=== PATIENT | female | born 1950 | race Caucasian/White ===

== ENCOUNTER 2021-01-25 16:45 | Emergency (ER) | payer MEDICARE, MEDICAID, SELFPAY ==
--- NOTE | ~2021-01-25 | US_ITS ---
EXAMINATION: US VENOUS ULTRASOUND WITH DOPPLER LOWER EXTREMITY, LEFT CLINICAL INFORMATION: Swelling and redness. COMPARISON: Doppler ultrasound exam left lower extremity 12/20/2016. TECHNIQUE: Ultrasound of the deep veins is performed from the hip to the calf with compression sonography and color and pulse Doppler assessment. Spectral analysis with color-flow imaging is performed. FINDINGS: As on the previous study, the mid to lower superficial femoral vein, the popliteal vein, and the calf veins are not visualized, possibly surgically removed or atrophic and not imaged with ultrasound. The remaining imaged upper left lower extremity venous segments remain widely patent. No change in the previously measured lymph node in the left groin with short axis diameter of 1.1 cm in length. 2.5 cm. US/US venous duplex LE LT IMPRESSION: No evidence of deep venous thrombosis involving the imaged veins of the left lower extremity. As on the prior study, the mid to lower superficial femoral vein, the popliteal vein, and the calf veins are not visualized, possibly surgically removed or atrophic and not imaged with ultrasound.
[2021-01-25 16:51] VITALS: BP 147/54; PULSE 88; RESP 16; TEMP 36.7; O2SAT 100; BMI 23.8
[2021-01-25 17:28] VITALS: BP 162/53; PULSE 92; RESP 18; TEMP 36.6; O2SAT 100
--- NOTE | 2021-01-25 17:38 | ED.GENADULT ---
HPI - General Adult General Chief complaint: Skin/Abscess/Foreign Body Stated complaint: left leg pain Time Seen by Provider: 01/25/21 17:26 Source: patient and family Limitations: no limitations History of Present Illness HPI narrative: This is a 70-year-old female with history of hypertension, diabetes, chronic venous stasis dermatitis to both legs, worse on the left, who has had increased erythema and swelling to her left leg for several weeks. The patient has been on a few courses of antibiotics already and was seen in clinic today, was noted to have increased swelling to the left side in her left calf, and was sent to the ED for rule out of DVT. Patient denies any chest pain shortness of breath. She denies any fever. She was prescribed some topical steroids and other medicines today in clinic. Related Data Home Medications Medication Instructions Recorded Confirmed alendronate 70 mg tablet 70 mg PO QWEEK 01/26/20 01/25/21 hydroxyzine pamoate 25 mg capsule 25 mg PO TID 01/26/20 01/25/21 Previous Rx's Medication Instructions Recorded glipizide 5 mg tablet, extended 5 mg PO DAILY #28 tab 01/15/20 release 24 hr lisinopril 2.5 mg tablet 2.5 mg PO DAILY #28 tab 01/15/20 metformin 1,000 mg tablet 1,000 mg PO BID #56 tab 01/15/20 mirabegron 50 mg tablet,extended 50 mg PO DAILY #28 tab 01/15/20 release 24 hr (Myrbetriq) solifenacin 10 mg tablet 10 mg PO DAILY #28 tab 01/15/20 atorvastatin 40 mg tablet 40 mg PO DAILY #28 tab 01/20/20 gemfibrozil 600 mg tablet 600 mg PO BID #56 tab 01/20/20 miscellaneous medical supply 1 ea MISCELLANEOUS .daily as 03/25/20 instructed #1 ea calcium carbonate 600 mg (1,500 2 tab PO BID #112 tab 12/06/20 mg)-vitamin D3 400 unit tablet ferrous sulfate 325 mg (65 mg 325 mg PO DAILY #28 tab 12/06/20 iron) tablet omega 3-dha 60 mg-epa 90 mg-fish 1 cap PO QAM #28 cap 12/06/20 oil 500 mg capsule, delayed release (Fish Oil) cephalexin 500 mg tablet 500 mg PO Q12H 10 Days #20 tab 01/25/21 triamcinolone acetonide 0.1 % 1 appl TOPICAL BID PRN 10 Days #80 01/25/21 topical cream g Allergies Allergy/AdvReac Type Severity Reaction Status Date / Time Sulfa (Sulfonamide Allergy Unknown rash Verified 01/25/21 15:28 Antibiotics) Review of Systems Constitutional: Constitutional: Denies fever(s) Cardiovascular: Cardiovascular: Reports no additional cardiovascular complaints Respiratory: Respiratory: Reports no additional respiratory complaints Gastrointestinal: Gastrointestinal: Reports no additional gastrointestinal complaints Musculoskeletal: Comments: Left leg swelling Integumentary/Breasts: Comments: Erythema to left leg and foot, as well to right foot; weeping of areas on left leg Neurologic: Denies Sensory deficit (Neuro) [facility] Past Medical History Medical History Anemia Anxiety Benign essential hypertension Bilateral leg edema Diabetes mellitus Generalized osteoarthrosis Osteoporosis Overweight with body mass index (BMI) 25.0-29.9 Primary osteoarthritis of left knee Pure hypercholesterolemia Urinary incontinence Venous stasis dermatitis of both lower extremities Surgical History History of hip surgery Family History Family History Father Heart disease CVD (cardiovascular disease) Mother Breast cancer Diabetes Social History Social History Housing: Assisted Living Facility Alcohol intake: never Patient Tobacco Use Status: Never used Tobacco e-Cigarette/Vaping Use: Never Used Second Hand Smoke Exposure: Yes Advance Directives: No Advance Directives Information Provided: Yes service: No Current occupational status: retired and disabled Cognitive needs: No Hearing needs: No Vision needs: Yes (glasses) Physical Exam Vital Signs: Vital Signs: Last Vital Signs Temp 98 F 01/25/21 17:28 Pulse 92 01/25/21 17:28 Resp 18 01/25/21 17:28 BP 162/53 H 01/25/21 17:28 Pulse Ox 100 01/25/21 17:28 Body Mass Index 23.8 Const: General: cooperative, no acute distress and alert Orientation/consciousness: patient oriented x3 HENMT: Head: Yes normal to inspection Eyes: General: appearance normal, both eyes and all related structures Eyelids: Yes eyelids normal Conjunctivae: conjunctivae normal Pupils: Equal, round and reactive pupils present Neck: Neck: Yes normal visual inspection and Yes supple Chest: Chest palpation & inspection: normal inspection of the chest Resp: Effort & Inspection: normal respiratory effort Auscultation: clear to auscultation bilaterally Cardio: Rate: regular rate Rhythm: regular rhythm Heart sounds: S1 normal heart sound present, S2 normal heart sound present, no gallops, no murmurs and no rubs GI: Palpation (GI): Soft to palpation, nontender and Other GI palpation findings present (Non-distended) Auscultation: normal bowel sounds Skin: Other: Venous stasis changes/edema to both feet, on the left extending up to the left anterior leg with a few areas of weeping. There is left calf swelling and firmness compared to the right calf. Normal dorsalis pedis pulse on the left foot. Neuro: General: patient oriented x3, no focal motor deficits and CN's II-XI intact bilaterally Cranial nerves: Yes Equal, round and reactive pupils present Cognition (Neuro): normal cognition Motor exam (neuro): 5/5 motor strength present throughout Sensory Exam: No Sensory deficit (Neuro) Extrem: General: Yes normal to inspection and Yes no pedal edema Psych: Appearance: grossly normal Affect: normal affect Medical Decision Making MDM Narrative Medical decision making narrative: Patient with chronic venous stasis changes, worse on the left with more marked swelling of her left calf. Patient does have known osteoarthritis on the left, which may be contributing somewhat to her left-sided swelling. Ultrasound of the left leg was negative for DVT. Patient has been on 2 courses of antibiotics for her dermatitis, which is likely not infectious but due to venous stasis. Patient was seen today and prescribed topical medications by her primary care physician. The patient is safe for outpatient follow-up. Imaging Data Venous US: Radiologist's impression: IMPRESSION: No evidence of deep venous thrombosis involving the imaged veins of the left lower extremity. As on the prior study, the mid to lower superficial femoral vein, the popliteal vein, and the calf veins are not visualized, possibly surgically removed or atrophic and not imaged with ultrasound. Discharge Plan Discharge Clinical Impression: Venous stasis dermatitis of both lower extremities Patient Disposition: Home, Self-Care Instructions: Venous Insufficiency (DC) Additional Instructions: Continue medicines as prescribed by your primary care physician for your venous stasis dermatitis. There is no evidence of DVT on ultrasound today. Try to keep your leg elevated above heart level as often as possible. Return for any new or worsened symptoms. Prescriptions: No Action glipizide 5 mg tablet extended release 24hr 5 mg PO DAILY Qty: 28 RF: 10 mirabegron [Myrbetriq] 50 mg tablet extended release 24 hr 50 mg PO DAILY Qty: 28 RF: 10 lisinopril 2.5 mg tablet 2.5 mg PO DAILY Qty: 28 RF: 10 solifenacin 10 mg tablet 10 mg PO DAILY Qty: 28 RF: 10 metformin 1,000 mg tablet 1,000 mg PO BID Qty: 56 RF: 10 gemfibrozil 600 mg tablet 600 mg PO BID Qty: 56 RF: 10 atorvastatin 40 mg tablet 40 mg PO DAILY Qty: 28 RF: 10 miscellaneous medical supply Mis 1 ea miscellaneous .daily as instructed Qty: 1 RF: 0 Fish Oil 60-90-500 mg capsule,delayed release(DR/EC) 1 cap PO QAM Qty: 28 RF: 10 ferrous sulfate 325 mg (65 mg iron) tablet 325 mg PO DAILY Qty: 28 RF: 10 calcium carbonate-vitamin D3 600 mg(1,500mg) -400 unit tablet 2 tab PO BID Qty: 112 RF: 10 alendronate 70 mg tablet 70 mg PO QWEEK RF: 0 hydroxyzine pamoate 25 mg capsule 25 mg PO TID RF: 0 triamcinolone acetonide 0.1 % cream 1 appl topical BID PRN (Reason: rash) 10 Days Qty: 80 RF: 0 cephalexin 500 mg tablet 500 mg PO Q12H 10 Days Qty: 20 RF: 0 Interventions: ED Discharge Assessment Last Done: 01/25/21 18:55 Discharge Date/Time: 01/25/21 18:56
== END 2021-01-25 18:56 | disposition home or self-care (01) ==
PROVIDERS: Emergency Provider Emergency Medicine; PCP Nurse Practitioner Family
DX: I87.2 Venous insufficiency (chronic) (peripheral) (principal); M79.605 Pain in left leg; I10 Essential (primary) hypertension; E11.9 Type 2 diabetes mellitus without complications; Z79.899 Other long term (current) drug therapy
CPT/HCPCS: 93971; 99283; 99284

== ENCOUNTER 2022-01-18 14:11 | Outpatient (REF) | payer MEDICARE, MEDICAID, SELFPAY ==
--- NOTE | ~2022-01-18 | MM_ITS ---
EXAMINATION: MM SCREENING DIGITAL BREAST TOMOSYNTHESIS, BILATERAL CLINICAL INFORMATION: Screening. Asymptomatic. COMPARISON: Mammography: April 05, 2016 and studies dating back to January 26, 2009 TECHNIQUE: Digital breast tomosynthesis is performed in both the craniocaudal and mediolateral oblique views along with computer-aided detection (CAD). Synthesized 2D images are generated from the tomosynthesis. FINDINGS: There are scattered areas of fibroglandular density (ACR BI-RADS breast composition Category b). There are no significant masses, abnormal calcifications, or other abnormalities. Some vascular calcifications are seen about the upper outer aspect of the left breast. MM/MM tomosynthesis screening BI IMPRESSION: No significant changes from prior exam. ASSESSMENT: BI-RADS 1: Negative RECOMMENDATION: Routine annual mammography screening. This patient's information was entered into a reminder system with a target due date for their next mammogram.
--- NOTE | ~2022-01-18 | MM_ITS ---
EXAMINATION: BONE DENSITOMETRY CLINICAL INDICATION: Osteoporosis. COMPARISON: Previous BD dated 04/05/2016 and baseline BD dated 08/19/2012. TECHNIQUE: Using a [employer] DXA System (software version: 13.1) manufactured by [employer], dual-energy x-ray absorptiometry was performed of the lumbar spine and right hip. The images are of good technical quality. Summary results are attached. FINDINGS: AP SPINE L1-L4: Degenerative sclerosis causes artifactually increased bone mineral density. Current: BMD 1.535 g/cm2, Z-score 5.3, T-score 3.0, normal, 12.6% increase from previous, 30.9% increase from baseline (<5% change is not significant). Prior: BMD 1.363 g/cm2. Baseline: BMD 1.173 g/cm2. RIGHT FEMUR, NECK: Current: BMD 0.536 g/cm2, Z-score -1.4, T-score -3.6, osteoporosis. Prior: BMD 0.679 g/cm2. Baseline: BMD 0.695 g/cm2. RIGHT FEMUR, TOTAL: Current: BMD 0.663 g/cm2, Z-score -0.7, T-score -2.7, osteoporosis, 14.8% decrease from previous, 12.4% decrease from baseline (<5% change is not significant). Prior: BMD 0.778 g/cm2. Baseline: BMD 0.757 g/cm2. IDENTIFIED RISK FACTORS: Menopause, height loss, history of fracture (adult), low body weight, osteoporosis, rheumatoid arthritis. HISTORY OF FRACTURE: Hip. MEDICATIONS: Calcium, bisphosphonate. MM/XR DEXA axial skeleton IMPRESSION: 1. DIAGNOSIS: Severe osteoporosis based on the lowest T-score value of -3.6 in the femoral neck and history of fracture of the hip applying World Health Organization criteria. 2. 10-YEAR FRACTURE RISK PREDICTION, FRAX: According to the guidelines, FRAX calculation should only be performed on patients in the osteopenia bone density category. Therefore, FRAX was not performed on this patient. 3. Treatment Recommendations: NOF guidelines recommend consideration for treatment in postmenopausal women and men age 50 and older presenting with the following: -A hip or vertebral (clinical or morphometric) fracture. -T-score less than or equal to -2.5 at the femoral neck or spine after appropriate evaluation to exclude secondary causes. -Low bone mass at the hip or spine and a 10-year fracture probability by FRAX of greater than or equal to 3% for hip fracture or greater than or equal to 20% for major osteoporotic fracture based on the [place] adapted WHO algorithm. 4. Other Recommendations: All treatment decisions require clinical judgment and consideration of individual patient factors, including patient preferences, comorbidities, previous drug use, risk factors not captured in the FRAX model (e.g. frailty, falls, vitamin D deficiency, increased bone turnover, interval significant decline in bone density) and possible under or overestimation of fracture risk by FRAX. Additional medical evaluation for secondary cause of low bone mineral density may be appropriate. FUTURE SCAN RECOMMENDATION: People with diagnosed cases of osteoporosis or at high risk for fracture should have regular bone mineral density tests. For patients eligible for Medicare, routine testing is allowed once every 2 years. The testing frequency can be increased to one year for patients who have rapidly progressing disease, those who are receiving or discontinuing medical therapy to restore bone mass, or have additional risk factors.
== END 2022-01-18 14:12 | disposition home or self-care (01) ==
LOC: HO.MAMMO 14:11
PROVIDERS: Visit Provider Internal Medicine
DX: Z12.31 Encounter for screening mammogram for malignant neoplasm of breast (principal); M81.0 Age-related osteoporosis without current pathological fracture
CPT/HCPCS: 77063; 77067; 77080

== ENCOUNTER → 2022-06-29 15:59 | Outpatient (BNVA) | payer MEDICARE, MEDICAID, SELFPAY | PROVIDERS: PCP Internal Medicine; Visit Provider Internal Medicine Endocrinology, Diabetes & Metabolism | DX: M81.0 Age-related osteoporosis without current pathological fracture (principal) | CPT/HCPCS: 99202 ==

== ENCOUNTER 2022-09-25 16:20 | Outpatient (AMB) | payer MEDICARE, MEDICAID, SELFPAY ==
--- NOTE | 2022-09-25 16:21 | MHC.OFFVIS ---
Intake Vital Signs 09/25/22 16:23 Height 4 ft 4.95 in Weight 114 lb 3.191 oz BMI 28.6 BP 144/56 H Blood Pressure Location Lt brachial Position Sitting Pulse 90 Pulse Source Pulse Oximeter Intake Visit Reasons: Osteoporosis Intake Note: Patient present for Osteoporosis follow up visit. Environmental Science Technician Required: No Accompanied by: Sister Allergies Sulfa (Sulfonamide Antibiotics) Allergy (Unknown, Verified 09/25/22 16:25) rash HPI HPI Comments History of Present Illness Details 72 YO F with is seen in consultation at the request of PCP for Osteoporosis. First diagnosed in several yrs . Received treatment in the past with alendronate , several yrs . Tolerated treatment well without complication. No history of pathologic fracture 12 yrs ago fx hip with fall in bathroom but no ONJ. Has several servings of dietary calcium per day meals are prepared . Takes Calcium supplement 1200 mg daily in divided doses. Takes 800 IU of Vitamin D daily. Denies ever using PPI, anticoagulant, antiepileptic or glucocorticoid medication. 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 Adentulous . No planned upcoming dental work or extractions. DXA dated 01/18/22:[facility] [address] [place] [address] Mammography Report Signed Patient: Ene Zapien MR#: [id number] : 1950 Acct:[id number] Age/Sex: 71 / F ADM Date: 01/18/22 Loc: HO.MAMMO Attending Dr: Riccardo Bang MD Ordering Physician: Riccardo Bang MD Results: Date of Service: 01/18/22 Follow Up: Procedure(s): XR DEXA axial skeleton Accession Number(s): [id number] cc: Riccardo Bang MD~ EXAMINATION: BONE DENSITOMETRY CLINICAL INDICATION: Osteoporosis. COMPARISON: Previous BD dated 04/05/2016 and baseline BD dated 08/19/2012. TECHNIQUE: Using a [employer] DXA System (software version: 13.1) manufactured by [employer], dual-energy x-ray absorptiometry was performed of the lumbar spine and right hip. The images are of good technical quality. Summary results are attached. FINDINGS: AP SPINE L1-L4: Degenerative sclerosis causes artifactually increased bone mineral density. Current: BMD 1.535 g/cm2, Z-score 5.3, T-score 3.0, normal, 12.6% increase from previous, 30.9% increase from baseline (<5% change is not significant). Prior: BMD 1.363 g/cm2. Baseline: BMD 1.173 g/cm2. RIGHT FEMUR, NECK: Current: BMD 0.536 g/cm2, Z-score -1.4, T-score -3.6, osteoporosis. Prior: BMD 0.679 g/cm2. Baseline: BMD 0.695 g/cm2. RIGHT FEMUR, TOTAL: Current: BMD 0.663 g/cm2, Z-score -0.7, T-score -2.7, osteoporosis, 14.8% decrease from previous, 12.4% decrease from baseline (<5% change is not significant). Prior: BMD 0.778 g/cm2. Baseline: BMD 0.757 g/cm2. IDENTIFIED RISK FACTORS: Menopause, height loss, history of fracture (adult), low body weight, osteoporosis, rheumatoid arthritis. HISTORY OF FRACTURE: Hip. MEDICATIONS: Calcium, bisphosphonate. MM/XR DEXA axial skeleton IMPRESSION: 1. DIAGNOSIS: Severe osteoporosis based on the lowest T-score value of -3.6 in the femoral neck and history of frac Labs: [facility] Medical History Anemia Anxiety Benign essential hypertension Bilateral leg edema Diabetes mellitus Generalized osteoarthrosis Osteoporosis Overweight with body mass index (BMI) 25.0-29.9 Primary osteoarthritis of left knee Pure hypercholesterolemia Urinary incontinence Venous stasis dermatitis of both lower extremities Surgical History History of hip surgery Family History Father Heart disease CVD (cardiovascular disease) Mother Breast cancer Diabetes Social History Housing: Assisted Living Facility Alcohol intake: never Patient Tobacco Use Status: Never used Tobacco e-Cigarette/Vaping Use: Never Used Second Hand Smoke Exposure: Yes service: No Current occupational status: retired and disabled Cognitive needs: No Hearing needs: No Vision needs: Yes (glasses) Physical Exam Vital Signs: Last Vital Signs Pulse 90 09/25/22 16:23 BP 144/56 H 09/25/22 16:23 BMI result Body Mass Index 28.6 Assessment & Plan Assessment & Plan (1) Osteoporosis: Code(s): M81.0 - Age-related osteoporosis without current pathological fracture Qualifiers: Osteoporosis type: age-related Presence of current pathological fracture: without current pathological fracture Qualified Code(s): M81.0 - Age-related osteoporosis without current pathological fracture Plan: This is a 72-year-old white female with a history of severe osteoporosis with secondary workup negative except 24 hour urine collection was not currently being treated alendronate. Urine NTX is officially suppressed Plan is to complete secondary workup by checking 24 hour urine for calcium and creatinine, . Will ensure 1200 mg of calcium and 2000-units of vitamin-D 3. . One secondary workup is complete, could consider switching patient from alendronate to anabolic therapy should she has Brianna Valencia or [place] considering patient has a very high risk for subsequent fracture based on urine NTX Coding Level of Care Code Est Pt Level 3 (07465) Diagnoses Osteoporosis M81.0 Osteoporosis type: age-related Presence of current pathological fracture: without current pathological fracture
[2022-09-25 16:23] VITALS: BP 144/56; PULSE 90; BMI 28.6
== END 2022-09-25 16:50 | disposition home or self-care (01) ==
PROVIDERS: PCP Internal Medicine; Visit Provider Internal Medicine Endocrinology, Diabetes & Metabolism
DX: M81.0 Age-related osteoporosis without current pathological fracture (principal)
CPT/HCPCS: 99213

== ENCOUNTER → 2022-09-25 16:20 | Outpatient (BNVA) | payer MEDICARE, MEDICAID, SELFPAY | PROVIDERS: Visit Provider Internal Medicine Endocrinology, Diabetes & Metabolism | DX: M81.0 Age-related osteoporosis without current pathological fracture (principal); M06.9 Rheumatoid arthritis, unspecified; Z78.0 Asymptomatic menopausal state; Z79.83 Long term (current) use of bisphosphonates | CPT/HCPCS: 99212 ==

== ENCOUNTER 2022-11-07 08:14 | Outpatient (REF) | payer MEDICARE, MEDICAID, SELFPAY ==
[2022-11-07 09:07] LABS: Creatinine, mg/dL 20.11
[2022-11-07 09:19] LABS: Creatinine, 24Hr Urine 0.1 G/Day (1.0-2.0); Total Volume 24 Hour Urine 725 mL
[2022-11-09 18:14] LABS: Calcium, 24 Hr Urine 29 mg/24 h; Calcium/Creatinine Ratio 190 mg/g creat (30-275); Creatinine 24Hr Urine 0.15 g/24 h (0.50-2.15)
== END 2022-11-07 08:15 | disposition home or self-care (01) ==
LOC: HO.LNP 08:14
PROVIDERS: Visit Provider Internal Medicine Endocrinology, Diabetes & Metabolism
DX: M81.0 Age-related osteoporosis without current pathological fracture (principal)
CPT/HCPCS: 82340; 82570

== ENCOUNTER 2022-12-20 12:19 | Outpatient (AMB) | payer MEDICARE, MEDICAID, SELFPAY ==
[2022-12-20 12:20] VITALS: BP 126/90; PULSE 106; O2SAT 99; BMI 28.5
--- NOTE | 2022-12-20 12:20 | MHC.PC.OV ---
Vital Signs 12/20/22 12:20 Height 4 ft 4.95 in Weight 113 lb 8.609 oz BMI 28.5 BP 126/90 H Blood Pressure Location Lt brachial Position Sitting Pulse 106 H Pulse Source Pulse Oximeter Pulse Oximetry (%) 99 Oxygen Delivery Method Room Air Intake Visit Reasons: Rash on face Drug Abuse Technician Required: No Accompanied by: Self / Same As Patient Allergies Sulfa (Sulfonamide Antibiotics) Allergy (Unknown, Verified 12/20/22 22:13) rash Medication List - Last Reconciled 12/20/22 by Riccardo Bang MD atorvastatin 40 mg PO DAILY blood sugar diagnostic (FreeStyle Lite Strips) As directed once a day blood-glucose meter (FreeStyle Lite Meter kit) As directed calcium carbonate-vitamin D3 600 mg-10 mcg (400 unit) 2 tabs PO BID [DIABETIC SHOES As directed] diphenhydramine HCl 25 mg PO TID PRN doxycycline monohydrate 100 mg PO BID 10 days ferrous sulfate 325 mg PO DAILY gemfibrozil 600 mg PO BID hydroxyzine pamoate 25 mg PO TID Jardiance (empagliflozin) 25 mg PO DAILY 30 days NS lancets (FreeStyle Lancets) As directed once a day lisinopril 2.5 mg PO DAILY metformin 500 mg PO BID mirabegron ER (Myrbetriq) 50 mg PO DAILY miscellaneous medical supply 1 ea miscellaneous .daily as instructed nitrofurantoin monohyd/m-cryst 100 mg 100 mg PO Q12H 7 days omega 2-nnj-gwp-fish oil 60-90-500 mg (Fish Oil) 1 cap PO QAM prednisone 20 mg PO DAILY 3 days romosozumab-aqqg (Evenity) 210 mg (2.34 mL) subcut .monthly solifenacin 10 mg PO DAILY triamcinolone acetonide 0.1% 1 appl topical BID PRN 10 days Tobacco use date assessed: 12/20/22 Fall risk assessment: 1 Fall in past year Last assessed Fall Risk: 12/20/22 Dental Screening Dental Screen Date: 12/20/22 Did you have a dental visit in the last 12 months?: No Did you have a dental problem in the last 6 months where you did not have access to dental care?: No Was dental information given to patient?: No HPI Rash on face HPI Details Patient comes in today for further evaluation of a worsening red and scaling rash all over her face that she states has been present for a few days now Recalls that her rash started after she ingested some nuts that her sister brought to her this past weekend States that she stop eating the nuts immediately but the rash on her face kept getting worse Patient currently lives in a rest home and has not been given any medication for her facial rash as they do not know what to give her Patient denies taking any new medications recently and states that she has not used any new soap or lotion on her face lately States that her face feels very sore, itchy and swollen She denies any trouble swallowing or difficulty breathing Denies any fever or sore throat; denies any headaches or dizziness Denies any chest pains, no SOB No nausea/vomiting, no abdominal pain No change in bowel habits noted [facility] Medical History Overweight with body mass index (BMI) 25.0-29.9 Anxiety Osteoporosis Venous stasis dermatitis of both lower extremities Bilateral leg edema Primary osteoarthritis of left knee Generalized osteoarthrosis Anemia Urinary incontinence Pure hypercholesterolemia Benign essential hypertension Diabetes mellitus Surgical History History of hip surgery Family History Father Heart disease CVD (cardiovascular disease) Mother Breast cancer Diabetes Social History Housing: Assisted Living Facility Alcohol intake: never Patient Tobacco Use Status: Never used Tobacco e-Cigarette/Vaping Use: Never Used Second Hand Smoke Exposure: Yes service: No Current occupational status: retired and disabled Cognitive needs: No Hearing needs: No Vision needs: Yes (glasses) Questionnaire PHQ-9 Over the last 2 weeks, how often have you been bothered by any of the following problems? 1. Little interest or pleasure in doing things: not at all 2. Feeling down, depressed, or hopeless: not at all 3. Trouble falling or staying asleep, or sleeping too much: not at all 4. Feeling tired or having little energy: not at all 5. Poor appetite or overeating: not at all 6. Feeling bad about yourself - or that you are a failure or have let yourself or your family down: not at all 7. Trouble concentrating on things, such as reading the newspaper or watching television: not at all 8. Moving or speaking so slowly that other people could have noticed. Or the opposite - being so fidgety or restless that you have been moving around a lot more than usual: not at all 9. Thoughts that you would be better off or of hurting yourself in some way: not at all Total score: 0 Depression Screening Interpretation: Negative Depression Screening Done: Yes 89751 - PHQ-9 Billing: Yes Source: Developed by Drs. Ken Pena, Mulu Davey, Gopi Powell and colleagues, with an educational mikey from [employer]. Thrive Questionnaire Date Thrive assessed: 12/20/22 I am a: Patient What is your living situation today?: I have a steady place to live Within the past 12 months, did the food you bought not last and you didn't have the money to get more?: Never true Within the past 12 months, did you worry whether your food would run out before you got money to buy more?: Never true Do you have trouble paying for medicines?: No Do you have trouble getting transportation to medical appointments?: No Do you have trouble paying your heating and electricity bill?: No Do you have trouble taking care of your child, family member or friend?: No Do you have trouble with day-to-day activities such as bathing, preparing meals, shopping, managing finances, etc.?: No Are you currently unemployed and looking for a job?: No Are you interested in more education?: No Please select the resources that you would like help with: None Currently or been in a relationship where the following occur: no concerns reported AUDIT C Alcohol Use Questionnaire (AUDIT-C) 1. How often do you have a drink containing alcohol?: Never 3. How often do you have six or more drinks on one occasion?: Never Total Score: 0 Score Reviewed/Action Taken: Yes FLORES-7 AMB Questionnaire FLORES-7 Date FLORES - 7 assessed: 12/20/22 Feeling nervous, anxious, or on edge: 0 = Not at all Not being able to stop or control worryin = Not at all Worrying too much about different things: 0 = Not at all Trouble relaxin = Not at all Being so restless that it is hard to sit still: 0 = Not at all Becoming easily annoyed or irritable: 0 = Not at all Feeling afraid as if something awful might happen: 0 = Not at all Total FLORES-7 score (0-4 normal; 5-9 mild; 10-14 moderate; 15-21 severe): 0 Source: Developed by Drs. Ken Pena, Mulu Davey, Gopi Powell and colleagues, with an educational mikey from [employer]. Review of Systems Const Reports fatigue, Denies fever(s) and Denies headache(s) ENT Denies dysphagia, Denies dizziness, Denies otalgia, Denies headache(s), Denies odynophagia, Denies sore throat and Denies throat swelling Card Denies chest pain, Denies palpitations and Denies dyspnea Resp Denies cough and Denies dyspnea GI Denies abdominal pain, Denies constipation, Denies dysphagia, Denies heartburn, Denies diarrhea, Denies nausea, Denies odynophagia and Denies vomiting Denies hematuria, Denies difficulty voiding, Denies nocturia and Denies dysuria Skin/Breast Details: (+) severe red and scaling rash all over the face, forehead and cheeks; face appears slightly swollen; rash does not extend down into the neck area Neuro Denies dizziness and Denies headache(s) Endo Reports fatigue and Denies palpitations Aller/Immun Denies throat swelling Physical exam (Primary Care) Vital Signs: Last Vital Signs Pulse 106 H 12/20/22 12:20 BP 126/90 H 12/20/22 12:20 Pulse Ox 99 12/20/22 12:20 Oxygen Delivery Method Room Air 12/20/22 12:20 BMI result Body Mass Index 28.5 Tobacco/Smoking Status: Tobacco use Status Tobacco use date assessed 12/20/22 12/20/22 12:26 Patient Tobacco Use Status Never used Tobacco 12/20/22 12:26 e-Cigarette/Vaping Use Never Used 12/20/22 12:26 PHQ-9: PHQ-9 Score PHQ-9: Total score 0 12/20/22 12:48 Depression Screening Interpretation: Negative Thrive Assessment: Date of Thrive Assessment Date Thrive assessed 12/20/22 12/20/22 12:26 Currently or been in a relationship where the following occur: no concerns reported Const General: no acute distress and alert HENMT Other: (+) extensive erythematous, slightly edematous and scaling rash all over the face, including over the forehead and both cheeks; no oral or mucosal involvement and the rash does not extend down into the neck area Ears: TM's normal bilaterally and EAC's normal Throat: Yes posterior oropharynx normal and Yes tonsils normal (no TP congestion) Neck Neck: Yes no lymphadenopathy and Yes supple Resp Auscultation: clear to auscultation bilaterally, no rales and no wheezes Cardio Rate: regular rate Rhythm: regular rhythm Heart sounds: no murmurs GI Palpation (GI): Soft to palpation and nontender Auscultation: normal bowel sounds Extrem General: No clubbing, No cyanosis and Yes edema (trace bipedal edema) Assessment and Plan Assessment & Plan (1) Diffuse cellulitis of face: Code(s): L03.211 - Cellulitis of face (2) Dermatitis due to allergic reaction to food: Code(s): L27.2 - Dermatitis due to ingested food Plan Patient advised that her worsening facial rash likely started out as an allergic reaction, most likely to the nuts that her sister brought her, but has since progressed to cellulitis with edema, worsening erythema and extensive scaling all over her face Will start her on oral Prednisone 20 mg daily for 3 days as well as on Diphenhydramine 25 mg TID until her facial rash clears up completely Due to the presence of cellulitis currently, will start her on oral Doxycycline 100 mg BID x 10 days Have advised her to avoid eating any nuts from now on as there is a strong likelihood of cross-reactivity in nut allergies Follow-up as scheduled in a couple of weeks Medications: New prednisone 20 mg PO DAILY 3 days 3 tabs 0RF doxycycline monohydrate 100 mg PO BID 10 days 20 caps 0RF diphenhydramine HCl Take 3 times a day UNTIL rash on face clears up completely 25 mg PO TID PRN 90 tabs 1RF rash Coding Level of Care Code Est Pt Level 3 (01689) Diagnoses Diffuse cellulitis of face L03.211 Dermatitis due to allergic reaction to food L27.2
== END 2022-12-20 12:58 | disposition home or self-care (01) ==
LOC: HO.HMGH 12:19
PROVIDERS: PCP Internal Medicine; Visit Provider Internal Medicine
DX: L03.211 Cellulitis of face (principal); L27.2 Dermatitis due to ingested food
CPT/HCPCS: 99213

== ENCOUNTER 2023-01-02 16:42 | Outpatient (AMB) | payer MEDICARE, MEDICAID, SELFPAY ==
[2023-01-02 16:51] VITALS: BP 142/80; PULSE 102; O2SAT 96; BMI 28.4
--- NOTE | 2023-01-02 16:51 | MHC.PC.OV ---
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 Setter Required: No Accompanied by: Self / Same As Patient Allergies Sulfa (Sulfonamide Antibiotics) Allergy (Unknown, Verified 01/04/23 09:10) rash Medication List - Last Reconciled 01/04/23 by Riccardo Bang MD alendronate 70 mg PO QWEEK atorvastatin 40 mg PO DAILY blood sugar diagnostic (FreeStyle Lite Strips) As directed once a day blood-glucose meter (FreeStyle Lite Meter kit) As directed calcium carbonate-vitamin D3 600 mg-10 mcg (400 unit) 2 tabs PO BID [DIABETIC SHOES As directed] diphenhydramine HCl 25 mg PO TID PRN doxycycline monohydrate 100 mg PO BID 10 days ferrous sulfate 325 mg PO DAILY gemfibrozil 600 mg PO BID hydroxyzine pamoate 25 mg PO TID Jardiance (empagliflozin) 25 mg PO DAILY 30 days NS lancets (FreeStyle Lancets) As directed once a day lisinopril 2.5 mg PO DAILY metformin 500 mg PO BID mirabegron ER (Myrbetriq) 50 mg PO DAILY miscellaneous medical supply 1 ea miscellaneous .daily as instructed nitrofurantoin monohyd/m-cryst 100 mg 100 mg PO Q12H 7 days omega 8-mbm-fso-fish oil 60-90-500 mg (Fish Oil) 1 cap PO QAM prednisone 20 mg PO DAILY 3 days romosozumab-aqqg (Evenity) 210 mg (2.34 mL) subcut .monthly solifenacin 10 mg PO DAILY triamcinolone acetonide 0.1% 1 appl topical BID PRN 10 days Tobacco use date assessed: 01/02/23 Fall risk assessment: No Falls in past year Last assessed Fall Risk: 01/02/23 Dental Screening Dental Screen Date: 01/02/23 Did you have a dental visit in the last 12 months?: No Did you have a dental problem in the last 6 months where you did not have access to dental care?: No Was dental information given to patient?: No HPI 4 month HPI Details Patient comes in today for her follow up visit States that she feels okay Her facial cellulitis appears improved significantly from a couple of weeks ago although she still has significant erythema on her face; she no longer has the swelling and scaling from a couple of weeks ago and her face is no longer warm to touch States that she asked the staff at the rest home a few days ago about taking her for her blood test for today's visit but was reportedly told that we did not give them any order for labs even though I specifically printed out her orders and handed it to the staff who was with her here at her previous follow up visit and reminded them to please help patient get her labs done before she comes in today Patient's sister, who is with her today, states that she feels that the staff at the rest home is always so disorganized that she is not surprised that patient's labs were not done Patient currently denies any headaches or dizziness She denies any chest pains, no SOB No nausea/vomiting, no abdominal pain No change in bowel habits noted [facility] Medical History Overweight with body mass index (BMI) 25.0-29.9 Anxiety Osteoporosis Venous stasis dermatitis of both lower extremities Bilateral leg edema Primary osteoarthritis of left knee Generalized osteoarthrosis Anemia Urinary incontinence Pure hypercholesterolemia Benign essential hypertension Diabetes mellitus Surgical History History of hip surgery Family History Father Heart disease CVD (cardiovascular disease) Mother Breast cancer Diabetes Social History Housing: Assisted Living Facility Alcohol intake: never Patient Tobacco Use Status: Never used Tobacco e-Cigarette/Vaping Use: Never Used Second Hand Smoke Exposure: Yes service: No Current occupational status: retired and disabled Cognitive needs: No Hearing needs: No Vision needs: Yes (glasses) Questionnaire PHQ-9 Over the last 2 weeks, how often have you been bothered by any of the following problems? 1. Little interest or pleasure in doing things: not at all 2. Feeling down, depressed, or hopeless: not at all 3. Trouble falling or staying asleep, or sleeping too much: not at all 4. Feeling tired or having little energy: not at all 5. Poor appetite or overeating: not at all 6. Feeling bad about yourself - or that you are a failure or have let yourself or your family down: not at all 7. Trouble concentrating on things, such as reading the newspaper or watching television: not at all 8. Moving or speaking so slowly that other people could have noticed. Or the opposite - being so fidgety or restless that you have been moving around a lot more than usual: not at all 9. Thoughts that you would be better off or of hurting yourself in some way: not at all Total score: 0 Depression Screening Interpretation: Negative Depression Screening Done: Yes 55450 - PHQ-9 Billing: Yes Source: Developed by Drs. Ken Pena, Mulu Davey, Gopi Powell and colleagues, with an educational mikey from [employer]. Thrive Questionnaire Date Thrive assessed: 01/02/23 I am a: Patient What is your living situation today?: I have a steady place to live Within the past 12 months, did the food you bought not last and you didn't have the money to get more?: Never true Within the past 12 months, did you worry whether your food would run out before you got money to buy more?: Never true Do you have trouble paying for medicines?: No Do you have trouble getting transportation to medical appointments?: No Do you have trouble paying your heating and electricity bill?: No Do you have trouble taking care of your child, family member or friend?: No Do you have trouble with day-to-day activities such as bathing, preparing meals, shopping, managing finances, etc.?: No Are you currently unemployed and looking for a job?: No Are you interested in more education?: No Please select the resources that you would like help with: None Currently or been in a relationship where the following occur: no concerns reported AUDIT C Alcohol Use Questionnaire (AUDIT-C) 1. How often do you have a drink containing alcohol?: Never 3. How often do you have six or more drinks on one occasion?: Never Total Score: 0 Score Reviewed/Action Taken: Yes FLORES-7 AMB Questionnaire FLORES-7 Date FLORES - 7 assessed: 01/02/23 Feeling nervous, anxious, or on edge: 0 = Not at all Not being able to stop or control worryin = Not at all Worrying too much about different things: 0 = Not at all Trouble relaxin = Not at all Being so restless that it is hard to sit still: 0 = Not at all Becoming easily annoyed or irritable: 0 = Not at all Feeling afraid as if something awful might happen: 0 = Not at all Total FLORES-7 score (0-4 normal; 5-9 mild; 10-14 moderate; 15-21 severe): 0 Source: Developed by Drs. Ken Pena, Mulu Davey, Gopi Powell and colleagues, with an educational mikey from [employer]. Review of Systems Const Denies chills, Reports fatigue, Denies fever(s) and Denies headache(s) ENT Denies dysphagia, Denies dizziness, Denies otalgia, Denies headache(s), Denies neck pain, Denies odynophagia and Denies sore throat Card Denies chest pain, Denies palpitations and Denies dyspnea Resp Denies cough and Denies dyspnea GI Denies abdominal pain, Denies constipation, Denies dysphagia, Denies heartburn, Denies diarrhea, Denies nausea, Denies odynophagia and Denies vomiting Denies hematuria, Denies difficulty voiding, Denies nocturia and Denies dysuria Musc Denies neck pain Skin/Breast Details: (+) residual redness on the face but her face is no longer swollen or warm to touch Neuro Denies dizziness and Denies headache(s) Endo Reports fatigue and Denies palpitations Physical exam (Primary Care) Vital Signs: Last Vital Signs Pulse 102 H 01/02/23 16:51 BP 142/80 H 01/02/23 16:51 Pulse Ox 96 01/02/23 16:51 Oxygen Delivery Method Room Air 01/02/23 16:51 BMI result Body Mass Index 28.4 Tobacco/Smoking Status: Tobacco use Status Tobacco use date assessed 01/02/23 01/02/23 17:00 Patient Tobacco Use Status Never used Tobacco 01/02/23 17:00 e-Cigarette/Vaping Use Never Used 01/02/23 17:00 PHQ-9: PHQ-9 Score PHQ-9: Total score 0 01/04/23 09:10 Depression Screening Interpretation: Negative Thrive Assessment: Date of Thrive Assessment Date Thrive assessed 01/02/23 01/02/23 17:00 Currently or been in a relationship where the following occur: no concerns reported Const General: no acute distress and alert HENMT Ears: TM's normal bilaterally and EAC's normal Throat: Yes posterior oropharynx normal and Yes tonsils normal (no TP congestion) Neck Neck: Yes no lymphadenopathy and Yes supple Resp Auscultation: clear to auscultation bilaterally, no rales and no wheezes Cardio Rate: regular rate Rhythm: regular rhythm Heart sounds: no murmurs GI Palpation (GI): Soft to palpation and nontender Auscultation: normal bowel sounds Skin Other: (+) residual erythema over the entire face but her face is no longer warm to touch and currently has no edema; the previous scaling on her face has also improved significantly Extrem General: No clubbing, No cyanosis and Yes edema (trace bipedal edema) Results AMB Hemoglobin A1c AMB Hemoglobin A1c 8.0 % Last Edit by Eryn Torres on 01/02/23 17:25 Results Reviewed Results Reviewed: Laboratory Last Values Hgb A1c (Clinic) 8.0 % (4.0-6.0) H 01/02/23 17:19 Assessment and Plan Assessment & Plan (1) Pure hypercholesterolemia: Code(s): E78.00 - Pure hypercholesterolemia, unspecified Plan: Patient was not able to get her follow up labs done prior to her appointment today - states that she asked the staff at the rest home a few days ago about taking her for her blood test for today's visit but was reportedly told that we did not give them any order for labs even though I specifically printed out her orders and handed it to the staff who was with her here at her previous follow up visit in August 2022 and reminded them more than once to make sure they help patient get her labs done before she comes in today Her labs done back in August 2022 was a non-fasting lab and did not include her cholesterol levels so we have not really been able to check up on patient's cholesterol levels for over 8 months now Reinforced low cholesterol diet Continue Atorvastatin 40 mg QD and Gemfibrozil 600 mg BID for now Will recheck her labs and fasting lipids in 4 months for follow up - have again printed out patient's lab orders and handed it to patient's sister and have instructed her to try to hand this over to the reactor fueling supervisor at patient's rest home instead of just to the regular staff as it appear that the staff there are not reliable when it comes to instructions; hopefully, handing the papers to the one in charge will improve the chances that patient will be able to get her labs done timely for her next visit (2) Diabetes mellitus: Code(s): E11.9 - Type 2 diabetes mellitus without complications Qualifiers: Diabetes mellitus complication status: without complication Diabetes mellitus senior care insulin use: without terminal superintendent use Diabetes mellitus type: type 2 Qualified Code(s): E11.9 - Type 2 diabetes mellitus without complications Plan: In-office HgbA1c done today is at 8.0% (was at 7.7% a few months ago) - goal is <7.0% Reinforced diabetic diet Advised that we did start patient on some prednisone a couple of weeks ago for her facial cellulitis and edema and this may have affected her diabetes BUT have also cautioned patient that her HgbA1c has been steadily increasing over the past year Continue Metformin 500 mg BID and Jardiance 25 mg Q AM for now but may need to add some other Rx if her HgbA1c and glycemic control continues to increase Glipizide ER 5 mg QD was previously discontinued as it was causing her blood sugar to go too low Will recheck her labs and HgbA1c in 4 months for follow up (3) Benign essential hypertension: Code(s): I10 - Essential (primary) hypertension Plan: Reinforced low sodium diet - goal is systolic BP of at least 140 to 150 mm or less BP logs from her rest home in the past have shown adequate BP control, with systolic BPs usually running at 140 mm or less Continue Lisinopril 2.5 mg QD (4) Anemia: Code(s): D64.9 - Anemia, unspecified Qualifiers: Anemia type: iron deficiency Iron deficiency anemia type: inadequate dietary iron intake Qualified Code(s): D50.8 - Other iron deficiency anemias Plan: Her recent labs back in August 2022 also did not include a CBC Her Hgb was at 10.7 on her labs done earlier this year; her anemia was stable in the past Continue Ferrous sulfate 325 mg QD Will continue to monitor her CBC regularly IF we can get her rest home staff to help keep her lab draws on time (5) Urinary incontinence: Code(s): R32 - Unspecified urinary incontinence Qualifiers: Urinary Incontinence type: unspecified incontinence Qualified Code(s): R32 - Unspecified urinary incontinence Plan: Continue Vesicare 10 mg QD Follow up with urology as scheduled (6) Primary osteoarthritis of left knee: Code(s): M17.12 - Unilateral primary osteoarthritis, left knee Plan: Continue Acetaminophen 500 mg Q 6 to 8 hours PRN for pain X-rays of the left knee done a couple of years ago showed (+) OA changes (7) Venous stasis dermatitis of both lower extremities: Code(s): I87.2 - Venous insufficiency (chronic) (peripheral) Plan: Continue Triamcinolone acetonide cream 0.1% apply to affected areas BID PRN (8) Bilateral leg edema: Code(s): R60.0 - Localized edema Plan: Still has some leg swelling but this has improved significantly from previous - reminded to keep her legs elevated as often as she can to help minimize her edema Patient also wears support stockings whenever she can to help with her symptoms (recommended by the wound clinic previously) and currently has a hospital bed, which has helped a lot with her edema (9) Osteoporosis: Code(s): M81.0 - Age-related osteoporosis without current pathological fracture Qualifiers: Osteoporosis type: age-related Presence of current pathological fracture: without current pathological fracture Qualified Code(s): M81.0 - Age-related osteoporosis without current pathological fracture Plan: Continue Alendronate 70 mg Q week as well as oral Calcium supplements daily BMD done in 03/2016 showed no significant changes compared to her baseline BMD in 2012 Repeat BMD done on 01/18/2022 revealed a significant decline (14.8%) in her right femur BMD from previous; (+) severe osteoporosis with the lowest T score of -3.6 in the femoral neck She has been referred to and is now seeing Dr. Amor for endocrinology follow up and management of her osteoporosis (10) Anxiety: Code(s): F41.9 - Anxiety disorder, unspecified Plan: Continue Hydroxyzine 25 mg every 8 hours PRN (11) Overweight with body mass index (BMI) 25.0-29.9: Code(s): E66.3 - Overweight Plan: Reinforced diet; exercise and weight loss are unrealistic given patient's comorbidities and poor functional and mobility status Plan Follow up in 4 months Orders: Orders TSH reflex Free T4 4 Months E78.00 - Pure hypercholesterolemia, unspecified UA CC w/rflx Micro + Cult 4 Months R30.0 - Dysuria Microalbumin, Random (w Creat) 4 Months E11.9 - Type 2 diabetes mellitus without complications Vitamin D 25-OH Total 4 Months E55.9 - Vitamin D deficiency, unspecified Hemoglobin A1c 4 Months E11.9 - Type 2 diabetes mellitus without complications AMB Hemoglobin A1c 01/02/23 Z13.9 - Encounter for screening, unspecified Complete Blood Count Auto Diff 4 Months I10 - Essential (primary) hypertension Comprehensive [place]. Panel Fast 4 Months E78.00 - Pure hypercholesterolemia, unspecified Lipid Panel 4 Months E78.00 - Pure hypercholesterolemia, unspecified Vitamin B12 and Folate 4 Months E53.8 - Deficiency of other specified B group vitamins Coding Level of Care Code Est Pt Level 4 (41415) Diagnoses Pure hypercholesterolemia E78.00 Type 2 diabetes mellitus without complication, without long-term current use of insulin E11.9 Diabetes mellitus complication status: without complication Diabetes mellitus senior care insulin use: without senior care use Diabetes mellitus type: type 2 Benign essential hypertension I10 Iron deficiency anemia secondary to inadequate dietary iron intake D50.8 Anemia type: iron deficiency Iron deficiency anemia type: inadequate dietary iron intake Urinary incontinence, unspecified type R32 Urinary Incontinence type: unspecified incontinence Primary osteoarthritis of left knee M17.12 Venous stasis dermatitis of both lower extremities I87.2 Bilateral leg edema R60.0 Age-related osteoporosis without current pathological fracture M81.0 Osteoporosis type: age-related Presence of current pathological fracture: without current pathological fracture Anxiety F41.9 Overweight with body mass index (BMI) 25.0-29.9 E66.3
== END 2023-01-02 17:33 | disposition home or self-care (01) ==
PROVIDERS: PCP Internal Medicine; Visit Provider Internal Medicine
DX: E11.9 Type 2 diabetes mellitus without complications (principal); E78.00 Pure hypercholesterolemia, unspecified; I10 Essential (primary) hypertension; D64.9 Anemia, unspecified
CPT/HCPCS: 83036; 99214

== ENCOUNTER 2023-01-29 15:12 | Outpatient (AMB) | payer MEDICARE, MEDICAID, SELFPAY ==
[2023-01-29 15:14] VITALS: BP 148/42; PULSE 104; BMI 28.5
--- NOTE | 2023-01-29 15:14 | MHC.OFFVIS ---
Intake Vital Signs 01/29/23 15:14 Height 4 ft 4.9 in Weight 113 lb 5.082 oz BMI 28.5 BP 148/42 H Blood Pressure Location Lt brachial Position Sitting Pulse 104 H Pulse Source Pulse Oximeter Intake Visit Reasons: Osteoporosis Intake Note: Patient present today for Osteoporosis follow up visit. Belling Machine Operator Required: No Accompanied by: Sister Allergies Sulfa (Sulfonamide Antibiotics) Allergy (Unknown, Verified 01/29/23 15:22) rash HPI HPI Comments History of Present Illness Details 72 YO F with is seen in consultation at the request of PCP for Osteoporosis. First diagnosed in several yrs . Received treatment in the past with alendronate , several yrs . Tolerated treatment well without complication. No history of pathologic fracture 12 yrs ago fx hip with fall in bathroom but no ONJ. Has several servings of dietary calcium per day meals are prepared . Takes Calcium supplement 1200 mg daily in divided doses. Takes 800 IU of Vitamin D daily. Denies ever using PPI, anticoagulant, antiepileptic or glucocorticoid medication. 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 Adentulous . No planned upcoming dental work or extractions. [facility]18/[facility] [address] [place] [address] Mammography Report Signed Patient: Ene Zapien MR#: [id number] : 1950 Acct:[id number] Age/Sex: 71 / F ADM Date: 01/18/22 Loc: MAMMO Attending Dr: Riccardo Bang MD Ordering Physician: Riccardo Bang MD Results: Date of Service: 01/18/22 Follow Up: Procedure(s): XR DEXA axial skeleton Accession Number(s): [id number] cc: Riccardo Bang MD~ EXAMINATION: BONE DENSITOMETRY CLINICAL INDICATION: Osteoporosis. COMPARISON: Previous BD dated 04/05/2016 and baseline BD dated 08/19/2012. TECHNIQUE: Using a [employer] Interactive DXA System (software version: 13.1) manufactured by [employer], dual-energy x-ray absorptiometry was performed of the lumbar spine and right hip. The images are of good technical quality. Summary results are attached. FINDINGS: AP SPINE L1-L4: Degenerative sclerosis causes artifactually increased bone mineral density. Current: BMD 1.535 g/cm2, Z-score 5.3, T-score 3.0, normal, 12.6% increase from previous, 30.9% increase from baseline (<5% change is not significant). Prior: BMD 1.363 g/cm2. Baseline: BMD 1.173 g/cm2. RIGHT FEMUR, NECK: Current: BMD 0.536 g/cm2, Z-score -1.4, T-score -3.6, osteoporosis. Prior: BMD 0.679 g/cm2. Baseline: BMD 0.695 g/cm2. RIGHT FEMUR, TOTAL: Current: BMD 0.663 g/cm2, Z-score -0.7, T-score -2.7, osteoporosis, 14.8% decrease from previous, 12.4% decrease from baseline (<5% change is not significant). Prior: BMD 0.778 g/cm2. Baseline: BMD 0.757 g/cm2. IDENTIFIED RISK FACTORS: Menopause, height loss, history of fracture (adult), low body weight, osteoporosis, rheumatoid arthritis. HISTORY OF FRACTURE: Hip. MEDICATIONS: Calcium, bisphosphonate. MM/XR DEXA axial skeleton IMPRESSION: 1. DIAGNOSIS: Severe osteoporosis based on the lowest T-score value of -3.6 in the femoral neck and history of frac Labs: Secondary workup was negative [facility] Medical History Overweight with body mass index (BMI) 25.0-29.9 Anxiety Osteoporosis Venous stasis dermatitis of both lower extremities Bilateral leg edema Primary osteoarthritis of left knee Generalized osteoarthrosis Anemia Urinary incontinence Pure hypercholesterolemia Benign essential hypertension Diabetes mellitus Surgical History History of hip surgery Family History Father Heart disease CVD (cardiovascular disease) Mother Breast cancer Diabetes Housing: Assisted Living Facility Alcohol intake: never Patient Tobacco Use Status: Never used Tobacco e-Cigarette/Vaping Use: Never Used Second Hand Smoke Exposure: Yes service: No Current occupational status: retired and disabled Cognitive needs: No Hearing needs: No Vision needs: Yes (glasses) Physical Exam Vital Signs: Last Vital Signs Pulse 104 H 01/29/23 15:14 BP 148/42 H 01/29/23 15:14 BMI result Body Mass Index 28.5 Assessment & Plan Assessment & Plan (1) Osteoporosis: Code(s): M81.0 - Age-related osteoporosis without current pathological fracture Qualifiers: Osteoporosis type: age-related Presence of current pathological fracture: without current pathological fracture Qualified Code(s): M81.0 - Age-related osteoporosis without current pathological fracture Plan: This is a 72-year-old white female with a history of severe osteoporosis with secondary workup negative Urine NTX is officially suppressed with declining bone density Plan is to l ensure 1200 mg of calcium and 2000-units of vitamin-D 3. . We did obtain approval [facility] 1 year[facility] Coding Level of Care Code Est Pt Level 3 (53812) Diagnoses Age-related osteoporosis without current pathological fracture M81.0 Osteoporosis type: age-related Presence of current pathological fracture: without current pathological fracture
== END 2023-01-29 15:39 | disposition home or self-care (01) ==
LOC: HO.ENCR 15:12
PROVIDERS: PCP Internal Medicine; Visit Provider Internal Medicine Endocrinology, Diabetes & Metabolism
DX: M81.0 Age-related osteoporosis without current pathological fracture (principal)
CPT/HCPCS: 99213

== ENCOUNTER → 2023-01-29 15:12 | Outpatient (BNVA) | payer MEDICARE, MEDICAID, SELFPAY | PROVIDERS: PCP Internal Medicine; Visit Provider Internal Medicine Endocrinology, Diabetes & Metabolism | DX: M81.0 Age-related osteoporosis without current pathological fracture (principal) | CPT/HCPCS: 99212 ==

== ENCOUNTER 2023-05-08 15:48 | Outpatient (AMB) | payer MEDICARE, MEDICAID, SELFPAY ==
[2023-05-08 15:53] VITALS: BP 158/62; PULSE 90; O2SAT 99; BMI 28.1
--- NOTE | 2023-05-08 15:53 | A.OFFPC_ITS ---
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 Allergies Sulfa (Sulfonamide Antibiotics) Allergy (Unknown, Verified 05/08/23 17:02) rash Medication List - Last Reconciled 05/08/23 by Riccardo Bang MD atorvastatin 40 mg PO DAILY blood sugar diagnostic (FreeStyle Lite Strips) As directed once a day blood-glucose meter (FreeStyle Lite Meter kit) As directed calcium carbonate-vitamin D3 600 mg-10 mcg (400 unit) 2 tabs PO BID [DIABETIC SHOES As directed] diphenhydramine HCl 25 mg PO TID PRN ferrous sulfate 325 mg PO DAILY gemfibrozil 600 mg PO BID hydroxyzine pamoate 25 mg PO TID Jardiance (empagliflozin) 25 mg PO DAILY 30 days NS lancets (FreeStyle Lancets) As directed once a day lisinopril 2.5 mg PO DAILY metformin 500 mg PO BID mirabegron ER (Myrbetriq) 50 mg PO DAILY miscellaneous medical supply 1 ea miscellaneous .daily as instructed omega 0-pji-pyw-fish oil 60-90-500 mg (Fish Oil) 1 cap PO QAM romosozumab-aqqg (Evenity) 210 mg (2.34 mL) subcut .monthly solifenacin 10 mg PO DAILY triamcinolone acetonide 0.1% 1 appl topical BID PRN 10 days Tobacco use date assessed: 05/08/23 Fall risk assessment: No Falls in past year Last assessed Fall Risk: 05/08/23 Dental Screening Dental Screen Date: 05/08/23 HPI DM, hyperlipidemia, HTN HPI Details Patient comes in today for her follow up visit States that she feels okay She denies any headaches or dizziness Denies any chest pains, no SOB No nausea/vomiting, no abdominal pain No change in bowel habits noted Had her follow up labs done at [facility] yesterday - to discuss her results (patient brought in a copy of her lab results) [facility] Medical History Overweight with body mass index (BMI) 25.0-29.9 Anxiety Osteoporosis Venous stasis dermatitis of both lower extremities Bilateral leg edema Primary osteoarthritis of left knee Generalized osteoarthrosis Anemia Urinary incontinence Pure hypercholesterolemia Benign essential hypertension Diabetes mellitus Surgical History History of hip surgery Family History Father Heart disease CVD (cardiovascular disease) Mother Breast cancer Diabetes Social History Housing: Assisted Living Facility Alcohol intake: never Patient Tobacco Use Status: Never used Tobacco e-Cigarette/Vaping Use: Never Used Second Hand Smoke Exposure: Yes service: No Current occupational status: retired and disabled Cognitive needs: No Hearing needs: No Vision needs: Yes (glasses) Questionnaire PHQ-9 Over the last 2 weeks, how often have you been bothered by any of the following problems? 1. Little interest or pleasure in doing things: not at all 2. Feeling down, depressed, or hopeless: not at all 3. Trouble falling or staying asleep, or sleeping too much: not at all 4. Feeling tired or having little energy: not at all 5. Poor appetite or overeating: not at all 6. Feeling bad about yourself - or that you are a failure or have let yourself or your family down: not at all 7. Trouble concentrating on things, such as reading the newspaper or watching television: not at all 8. Moving or speaking so slowly that other people could have noticed. Or the opposite - being so fidgety or restless that you have been moving around a lot more than usual: not at all 9. Thoughts that you would be better off or of hurting yourself in some way: not at all Total score: 0 Depression Screening Interpretation: Negative Depression Screening Done: Yes 72240 - PHQ-9 Billing: Yes Source: Developed by Drs. Ken Pena, Mulu Davey, Gopi Powell and colleagues, with an educational mikey from [employer]. Thrive Questionnaire Date Thrive assessed: 05/08/23 I am a: Patient What is your living situation today?: I have a steady place to live Within the past 12 months, did the food you bought not last and you didn't have the money to get more?: Never true Within the past 12 months, did you worry whether your food would run out before you got money to buy more?: Never true Do you have trouble paying for medicines?: No Do you have trouble getting transportation to medical appointments?: No Do you have trouble paying your heating and electricity bill?: No Do you have trouble taking care of your child, family member or friend?: No Do you have trouble with day-to-day activities such as bathing, preparing meals, shopping, managing finances, etc.?: No Are you currently unemployed and looking for a job?: No Are you interested in more education?: No Please select the resources that you would like help with: None Currently or been in a relationship where the following occur: no concerns reported THRIVE Score: 0 AUDIT C Alcohol Use Questionnaire (AUDIT-C) 1. How often do you have a drink containing alcohol?: Never 3. How often do you have six or more drinks on one occasion?: Never Total Score: 0 Score Reviewed/Action Taken: Yes FLORES-7 AMB Questionnaire FLORES-7 Date FLORES - 7 assessed: 05/08/23 Source: Developed by Drs. Ken Pena, Mulu Davey, Gopi Powell and colleagues, with an educational mikey from [employer]. Review of Systems Const Denies chills, Reports fatigue, Denies fever(s) and Denies headache(s) ENT Denies dysphagia, Denies dizziness, Denies otalgia, Denies headache(s), Denies neck pain, Denies odynophagia and Denies sore throat Card Denies chest pain, Denies palpitations and Denies dyspnea Resp Denies chest congestion, Denies cough and Denies dyspnea GI Denies abdominal pain, Denies constipation, Denies dysphagia, Denies heartburn, Denies diarrhea, Denies nausea, Denies odynophagia and Denies vomiting Denies hematuria, Denies difficulty voiding, Denies nocturia, Denies dysuria and Denies urinary urgency Musc Denies back pain and Denies neck pain Skin/Breast Denies rash Neuro Denies dizziness and Denies headache(s) Endo Reports fatigue and Denies palpitations Physical exam (Primary Care) Vital Signs: Last Vital Signs Pulse 90 05/08/23 15:53 BP 158/62 H 05/08/23 15:53 Pulse Ox 99 05/08/23 15:53 Oxygen Delivery Method Room Air 05/08/23 15:53 BMI result Body Mass Index 28.1 Tobacco/Smoking Status: Tobacco use Status Tobacco use date assessed 05/08/23 05/08/23 15:55 Patient Tobacco Use Status Never used Tobacco 05/08/23 15:55 e-Cigarette/Vaping Use Never Used 05/08/23 15:55 PHQ-9: PHQ-9 Score PHQ-9: Total score 0 05/08/23 18:48 Depression Screening Interpretation: Negative Thrive Assessment: Date of Thrive Assessment Date Thrive assessed 05/08/23 05/08/23 15:55 Currently or been in a relationship where the following occur: no concerns reported Const General: no acute distress and alert HENMT Ears: TM's normal bilaterally and EAC's normal Throat: Yes posterior oropharynx normal and Yes tonsils normal (no TP congestion) Neck Neck: Yes no lymphadenopathy and Yes supple Thyroid: Thyroid normal Resp Auscultation: clear to auscultation bilaterally, no rales and no wheezes Cardio Rate: regular rate Rhythm: regular rhythm Heart sounds: no murmurs GI Palpation (GI): Soft to palpation and nontender Auscultation: normal bowel sounds General: Yes no CVA tenderness Back/Spine/Pelvis Back: no CVA tenderness Skin Rashes: no rashes Extrem General: No clubbing, No cyanosis and Yes edema (trace bipedal edema) Results AMB Hemoglobin A1c AMB Hemoglobin A1c 8.6 % Last Edit by ABDULAZIZ Ontiveros on 05/08/23 16:37 Results Reviewed Results Reviewed: Laboratory Last Values Hgb A1c (Clinic) 8.6 % (4.0-6.0) H 05/08/23 11:13 Assessment and Plan Assessment & Plan (1) Diabetes mellitus: Code(s): E11.9 - Type 2 diabetes mellitus without complications Qualifiers: Diabetes mellitus type: type 2 Diabetes mellitus 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 insulin use: without 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 use Diabetes mellitus complication status: without complication Qualified Code(s): E11.9 - Type 2 diabetes mellitus without complications Plan: In-office HgbA1c done today is at 8.6% (was at 8.0% a few months ago) - goal is <7.0% Reinforced diabetic diet Patient is cautioned that her diabetes control has been slowly and consistently getting worse over the past year or so Continue Metformin 500 mg BID and Jardiance 25 mg Q AM Will start her additionally on Pioglitazone 15 mg QD Her Glipizide ER 5 mg QD was previously discontinued as it was causing her to experience frequent hypoglycemic symptoms - her blood sugar was going too low often Will recheck her labs and HgbA1c in 4 months for follow up (2) Pure hypercholesterolemia: Code(s): E78.00 - Pure hypercholesterolemia, unspecified Plan: Results of her labs done at [facility] yesterday reviewed and discussed with patient Reinforced low cholesterol diet Continue Atorvastatin 40 mg QD and Gemfibrozil 600 mg BID Will recheck her labs and fasting lipids in 4 months for follow up (3) Benign essential hypertension: Code(s): I10 - Essential (primary) hypertension Plan: Reinforced low sodium diet - goal is systolic BP of at least 140 to 150 mm or less BP logs from her rest home in the past have shown adequate BP control, with systolic BPs usually running at 140 mm or less Continue Lisinopril 2.5 mg QD (4) Anemia: Code(s): D64.9 - Anemia, unspecified Qualifiers: Anemia type: iron deficiency Iron deficiency anemia type: inadequate dietary iron intake Qualified Code(s): D50.8 - Other iron deficiency anemias Plan: Her H/H appears corrected and are now normal on her labs done yesterday Continue Ferrous sulfate 325 mg QD Will continue to monitor her CBC regularly (5) Urinary incontinence: Code(s): R32 - Unspecified urinary incontinence Qualifiers: Urinary Incontinence type: unspecified incontinence Qualified Code(s): R32 - Unspecified urinary incontinence Plan: Continue Vesicare 10 mg QD Follow up with urology as scheduled (6) Primary osteoarthritis of left knee: Code(s): M17.12 - Unilateral primary osteoarthritis, left knee Plan: Continue Acetaminophen 500 mg Q 6 to 8 hours PRN for pain X-rays of the left knee done a couple of years ago showed (+) OA changes (7) Venous stasis dermatitis of both lower extremities: Code(s): I87.2 - Venous insufficiency (chronic) (peripheral) Plan: Continue Triamcinolone acetonide cream 0.1% apply to affected areas BID PRN (8) Bilateral leg edema: Code(s): R60.0 - Localized edema Plan: She still has some leg swelling but this has improved significantly from previous - patient is reminded to keep her legs elevated as often as she can to help minimize her edema Patient also wears support stockings whenever she can to help with her symptoms (recommended by the wound clinic previously) and currently has a hospital bed, which has helped a lot with her edema (9) Osteoporosis: Code(s): M81.0 - Age-related osteoporosis without current pathological fracture Qualifiers: Osteoporosis type: age-related Presence of current pathological fracture: without current pathological fracture Qualified Code(s): M81.0 - Age- related osteoporosis without current pathological fracture Plan: Continue Alendronate 70 mg Q week as well as oral Calcium supplements daily BMD done in 03/2016 showed no significant changes compared to her baseline BMD in 2012 Repeat BMD done on 01/18/2022 revealed a significant decline (14.8%) in her right femur BMD from previous; (+) severe osteoporosis with the lowest T score of -3.6 in the femoral neck She has been referred to and is now seeing Dr. Amor for endocrinology follow up and management of her osteoporosis (10) Anxiety: Code(s): F41.9 - Anxiety disorder, unspecified Plan: Continue Hydroxyzine 25 mg every 8 hours PRN (11) Overweight with body mass index (BMI) 25.0-29.9: Code(s): E66.3 - Overweight Plan: Reinforced diet; exercise and weight loss are unrealistic given patient's comorbidities and poor functional and mobility status Plan Follow up in 4 months Orders: Orders AMB Hemoglobin A1c 05/08/24 E11.9 - Type 2 diabetes mellitus without complications Complete Blood Count Auto Diff 4 Months D64.9 - Anemia, unspecified Comprehensive Ponce. Panel Fast 4 Months E78.00 - Pure hypercholesterolemia, unspecified Lipid Panel 4 Months E78.00 - Pure hypercholesterolemia, unspecified TSH reflex Free T4 4 Months E78.00 - Pure hypercholesterolemia, unspecified Vitamin D 25-OH Total 4 Months E55.9 - Vitamin D deficiency, unspecified Microalbumin, Random (w Creat) 4 Months E11.9 - Type 2 diabetes mellitus without complications Hemoglobin A1c 4 Months E11.9 - Type 2 diabetes mellitus without complications UA CC w/rflx Micro + Cult 4 Months R30.0 - Dysuria Medications: New pioglitazone 15 mg PO DAILY 90 tabs 1RF 90 days Coding Level of Care Code Est Pt Level 4 (15926) Diagnoses Type 2 diabetes mellitus without complication, without long-term current use of insulin E11.9 Diabetes mellitus type: type 2 Diabetes mellitus [facility] insulin use: without [facility] use Diabetes mellitus complication status: without complication Pure hypercholesterolemia E78.00 Benign essential hypertension I10 Iron deficiency anemia secondary to inadequate dietary iron intake D50.8 Anemia type: iron deficiency Iron deficiency anemia type: inadequate dietary iron intake Urinary incontinence, unspecified type R32 Urinary Incontinence type: unspecified incontinence Primary osteoarthritis of left knee M17.12 Venous stasis dermatitis of both lower extremities I87.2 Bilateral leg edema R60.0 Age-related osteoporosis without current pathological fracture M81.0 Osteoporosis type: age-related Presence of current pathological fracture: without current pathological fracture Anxiety F41.9 Overweight with body mass index (BMI) 25.0-29.9 E66.3
== END 2023-05-08 17:19 | disposition home or self-care (01) ==
PROVIDERS: PCP Internal Medicine; Visit Provider Internal Medicine
DX: E11.9 Type 2 diabetes mellitus without complications (principal)
CPT/HCPCS: 83036; 99214

== ENCOUNTER 2023-09-04 16:26 | Outpatient (AMB) | payer MEDICARE, MEDICAID, SELFPAY ==
--- NOTE | 2023-09-04 16:35 | MHC.PC.OV ---
Vital Signs 09/04/23 16:37 Height 4 ft 4.9 in Weight 116 lb BMI 29.1 BP 136/50 L Blood Pressure Location Lt brachial Position Sitting Pulse 85 Pulse Source Pulse Oximeter Pulse Oximetry (%) 98 Oxygen Delivery Method Room Air Intake Visit Reasons: DM, hyperlipidemia, HTN, osteoporosis [place] Weaver Required: No Accompanied by: Sister Allergies Sulfa (Sulfonamide Antibiotics) Allergy (Unknown, Verified 09/04/23 17:13) rash Medication List - Last Reconciled 09/04/23 by Riccardo Bang MD atorvastatin 40 mg PO DAILY blood sugar diagnostic (FreeStyle Lite Strips) As directed once a day blood-glucose meter (FreeStyle Lite Meter kit) As directed calcium carbonate-vitamin D3 600 mg-10 mcg (400 unit) 2 tabs PO BID [DIABETIC SHOES As directed] diphenhydramine HCl 25 mg PO TID PRN ferrous sulfate 325 mg PO DAILY gemfibrozil 600 mg PO BID hydroxyzine pamoate 25 mg PO TID Jardiance (empagliflozin) 25 mg PO DAILY 30 days NS lancets (FreeStyle Lancets) As directed once a day lisinopril 2.5 mg PO DAILY metformin 500 mg PO BID mirabegron ER (Myrbetriq) 50 mg PO DAILY miscellaneous medical supply 1 ea miscellaneous .daily as instructed omega 6-grz-fjm-fish oil 60-90-500 mg (Fish Oil) 1 cap PO QAM pioglitazone 15 mg PO DAILY 90 days romosozumab-aqqg (Evenity) 210 mg (2.34 mL) subcut .monthly solifenacin 10 mg PO DAILY triamcinolone acetonide 0.1% 1 appl topical BID PRN 10 days Tobacco use date assessed: 05/08/23 Fall risk assessment: 1 Fall in past year Last assessed Fall Risk: 09/04/23 Dental Screening Dental Screen Date: 05/08/23 HPI DM, hyperlipidemia, HTN, osteoporosis HPI Details Patient comes in today for her follow up visit States that she feels okay She denies any headaches or dizziness Denies any chest pains, no SOB No nausea/vomiting, no abdominal pain No change in bowel habits noted Had her follow up labs done at [facility] last week - to discuss her results [facility] Medical History Overweight with body mass index (BMI) 25.0-29.9 Anxiety Osteoporosis Venous stasis dermatitis of both lower extremities Bilateral leg edema Primary osteoarthritis of left knee Generalized osteoarthrosis Anemia Urinary incontinence Pure hypercholesterolemia Benign essential hypertension Diabetes mellitus Surgical History History of hip surgery Family History Father Heart disease CVD (cardiovascular disease) Mother Breast cancer Diabetes Social History Housing: Assisted Living Facility Alcohol intake: never Patient Tobacco Use Status: Never used Tobacco e-Cigarette/Vaping Use: Never Used Second Hand Smoke Exposure: Yes service: No Current occupational status: retired and disabled Cognitive needs: No Hearing needs: No Vision needs: Yes (glasses) Questionnaire Thrive Questionnaire Date Thrive assessed: 05/08/23 FLORES-7 AMB Questionnaire FLORES-7 Date FLORES - 7 assessed: 09/04/23 Feeling nervous, anxious, or on edge: 0 = Not at all Not being able to stop or control worryin = Not at all Worrying too much about different things: 0 = Not at all Trouble relaxin = Not at all Being so restless that it is hard to sit still: 0 = Not at all Becoming easily annoyed or irritable: 0 = Not at all Feeling afraid as if something awful might happen: 0 = Not at all Total FLORES-7 score (0-4 normal; 5-9 mild; 10-14 moderate; 15-21 severe): 0 Source: Developed by Drs. Ken Pena, Mulu Davey, Gopi Powell and colleagues, with an educational mikey from [employer]. Review of Systems Const Denies chills, Reports fatigue, Denies fever(s) and Denies headache(s) ENT Denies dysphagia, Denies dizziness, Denies otalgia, Denies headache(s), Denies neck pain, Denies odynophagia and Denies sore throat Card Denies chest pain, Denies palpitations and Denies dyspnea Resp Denies chest congestion, Denies cough and Denies dyspnea GI Denies abdominal pain, Denies constipation, Denies dysphagia, Denies heartburn, Denies diarrhea, Denies nausea, Denies odynophagia and Denies vomiting Denies hematuria, Denies difficulty voiding, Denies nocturia, Denies dysuria and Denies urinary urgency Musc Denies back pain and Denies neck pain Skin/Breast Denies rash Neuro Denies dizziness and Denies headache(s) Endo Reports fatigue and Denies palpitations Physical exam (Primary Care) Vital Signs: Last Vital Signs Pulse 85 09/04/23 16:37 BP 136/50 L 09/04/23 16:37 Pulse Ox 98 09/04/23 16:37 Oxygen Delivery Method Room Air 09/04/23 16:37 BMI result Body Mass Index 29.1 Tobacco/Smoking Status: Tobacco use Status Tobacco use date assessed 05/08/23 09/04/23 16:39 Patient Tobacco Use Status Never used Tobacco 09/04/23 16:39 e-Cigarette/Vaping Use Never Used 09/04/23 16:39 Thrive Assessment: Date of Thrive Assessment Date Thrive assessed 05/08/23 09/04/23 16:39 Const General: no acute distress and alert HENMT Ears: TM's normal bilaterally and EAC's normal Throat: Yes posterior oropharynx normal and Yes tonsils normal (no TP congestion) Neck Neck: Yes no lymphadenopathy and Yes supple Thyroid: Thyroid normal Resp Auscultation: clear to auscultation bilaterally, no rales and no wheezes Cardio Rate: regular rate Rhythm: regular rhythm Heart sounds: no murmurs GI Palpation (GI): Soft to palpation and nontender Auscultation: normal bowel sounds General: Yes no CVA tenderness Back/Spine/Pelvis Back: no CVA tenderness Skin Rashes: no rashes Extrem General: No clubbing, No cyanosis and Yes edema (trace bipedal edema) Results AMB Hemoglobin A1c AMB Hemoglobin A1c 7.0 % Last Edit by ABDULAZIZ Dao on 09/04/23 16:41 Results Reviewed Results Reviewed: Laboratory Last Values Hgb A1c (Clinic) 7.0 % (4.0-6.0) H 09/04/23 16:31 Assessment and Plan Assessment & Plan (1) Diabetes mellitus: Code(s): E11.9 - Type 2 diabetes mellitus without complications Qualifiers: Diabetes mellitus complication status: without complication Diabetes mellitus continuous churn buttermaker insulin use: without jail use Diabetes mellitus type: type 2 Qualified Code(s): E11.9 - Type 2 diabetes mellitus without complications Plan: Her in-office HgbA1c done today is at 7.0% (was at 8.6% a few months ago) - goal is <7.0% HgbA1c was at 7.5% on her labs done at [facility] last week Reinforced diabetic diet Continue Metformin 500 mg BID, Jardiance 25 mg Q AM and Pioglitazone 15 mg QD She was previously taken off Glipizide ER 5 mg QD as it was causing her to experience frequent hypoglycemic symptoms and her blood sugar was going too low often Will recheck her labs and HgbA1c in 4 months for follow up (2) Pure hypercholesterolemia: Code(s): E78.00 - Pure hypercholesterolemia, unspecified Plan: Results of her labs done at [facility] last week reviewed and discussed with patient Reinforced low cholesterol diet Continue Atorvastatin 40 mg QD and Gemfibrozil 600 mg BID Will recheck her labs and fasting lipids in 4 months for follow up (3) Benign essential hypertension: Code(s): I10 - Essential (primary) hypertension Plan: Reinforced low sodium diet - goal is systolic BP of at least 140 to 150 mm or less BP logs from her rest home in the past have shown adequate BP control, with systolic BPs usually running at 140 mm or less Continue Lisinopril 2.5 mg QD (4) Anemia: Code(s): D64.9 - Anemia, unspecified Qualifiers: Anemia type: iron deficiency Iron deficiency anemia type: inadequate dietary iron intake Qualified Code(s): D50.8 - Other iron deficiency anemias Plan: Her H/H appears has again decreased slightly from previous on her recent labs - is now at 11.0/34.9 Continue Ferrous sulfate 325 mg QD Will continue to monitor her CBC regularly (5) Urinary incontinence: Code(s): R32 - Unspecified urinary incontinence Qualifiers: Urinary Incontinence type: unspecified incontinence Qualified Code(s): R32 - Unspecified urinary incontinence Plan: Continue Vesicare 10 mg QD Follow up with urology as scheduled (6) Primary osteoarthritis of left knee: Code(s): M17.12 - Unilateral primary osteoarthritis, left knee Plan: Continue Acetaminophen 500 mg Q 6 to 8 hours PRN for pain X-rays of the left knee done a couple of years ago showed (+) OA changes (7) Venous stasis dermatitis of both lower extremities: Code(s): I87.2 - Venous insufficiency (chronic) (peripheral) Plan: Continue Triamcinolone acetonide cream 0.1% apply to affected areas BID PRN (8) Bilateral leg edema: Code(s): R60.0 - Localized edema Plan: She still has some leg swelling but this has improved significantly from previous - patient is reminded to keep her legs elevated as often as she can to help minimize her edema Patient also wears support stockings whenever she can to help with her symptoms (recommended by the wound clinic previously) and currently has a hospital bed, which has helped a lot with her edema (9) Osteoporosis: Code(s): M81.0 - Age-related osteoporosis without current pathological fracture Qualifiers: Osteoporosis type: age-related Presence of current pathological fracture: without current pathological fracture Qualified Code(s): M81.0 - Age-related osteoporosis without current pathological fracture Plan: BMD done in 03/2016 showed no significant changes compared to her baseline BMD in 2012 Repeat BMD done on 01/18/2022 revealed a significant decline (14.8%) in her right femur BMD from previous; (+) severe osteoporosis with the lowest T score of -3.6 in the femoral neck Continue oral Calcium supplements daily She was on Alendronate 70 mg weekly but this was discontinued by Dr. Amor a few months ago as she has been on the Rx for > 5 years now She is now seeing Dr. Amor for endocrinology follow up and management of her osteoporosis The plan was to start her on Evenity and per Dr. Amor's last OV notes, the Rx was approved but patient states that she has not heard back from Dr. Amor's office since and has never received the medication yet Have advised them to reach out to Dr. Amor's office to check with them about this (10) Anxiety: Code(s): F41.9 - Anxiety disorder, unspecified Plan: Continue Hydroxyzine 25 mg every 8 hours PRN (11) Overweight with body mass index (BMI) 25.0-29.9: Code(s): E66.3 - Overweight Plan: Reinforced diet; exercise and weight loss are unrealistic given patient's comorbidities and poor functional and mobility status Plan Follow up in 4 months Orders: Orders AMB Hemoglobin A1c Today E11.9 - Type 2 diabetes mellitus without complications Complete Blood Count Auto Diff 4 Months D64.9 - Anemia, unspecified Comprehensive [place]. Panel Fast 4 Months E78.00 - Pure hypercholesterolemia, unspecified Microalbumin, Random (w Creat) 4 Months E11.9 - Type 2 diabetes mellitus without complications Hemoglobin A1c 4 Months E11.9 - Type 2 diabetes mellitus without complications Lipid Panel 4 Months E78.00 - Pure hypercholesterolemia, unspecified UA CC w/rflx Micro + Cult 4 Months R30.0 - Dysuria Vitamin B12 and Folate 4 Months E53.8 - Deficiency of other specified B group vitamins Vitamin D 25-OH Total 4 Months E55.9 - Vitamin D deficiency, unspecified Thyroid Stimulating Hormone 4 Months R79.89 - Other specified abnormal findings of blood chemistry Free T4 (Free Thyroxine) 4 Months R79.89 - Other specified abnormal findings of blood chemistry Coding Level of Care Code Est Pt Level 4 (47394) Complex EM visit Add On G2211 Diagnoses Type 2 diabetes mellitus without complication, without long-term current use of insulin E11.9 Diabetes mellitus complication status: without complication Diabetes mellitus continuous churn buttermaker insulin use: without continuous churn buttermaker use Diabetes mellitus type: type 2 Pure hypercholesterolemia E78.00 Benign essential hypertension I10 Iron deficiency anemia secondary to inadequate dietary iron intake D50.8 Anemia type: iron deficiency Iron deficiency anemia type: inadequate dietary iron intake Urinary incontinence, unspecified type R32 Urinary Incontinence type: unspecified incontinence Primary osteoarthritis of left knee M17.12 Venous stasis dermatitis of both lower extremities I87.2 Bilateral leg edema R60.0 Age-related osteoporosis without current pathological fracture M81.0 Osteoporosis type: age-related Presence of current pathological fracture: without current pathological fracture Anxiety F41.9 Overweight with body mass index (BMI) 25.0-29.9 E66.3
[2023-09-04 16:37] VITALS: BP 136/50; PULSE 85; O2SAT 98; BMI 29.1
== END 2023-09-04 17:10 | disposition home or self-care (01) ==
PROVIDERS: PCP Internal Medicine; Visit Provider Internal Medicine
DX: E11.9 Type 2 diabetes mellitus without complications (principal); E78.00 Pure hypercholesterolemia, unspecified; I10 Essential (primary) hypertension; D50.8 Other iron deficiency anemias; R32 Unspecified urinary incontinence; M17.12 Unilateral primary osteoarthritis, left knee; I87.2 Venous insufficiency (chronic) (peripheral); R60.0 Localized edema; M81.0 Age-related osteoporosis without current pathological fracture; F41.9 Anxiety disorder, unspecified; E66.3 Overweight
CPT/HCPCS: 83036; 99214; G2211

== ENCOUNTER 2024-01-03 15:56 | Outpatient (AMB) | payer MEDICARE, MEDICAID, SELFPAY ==
--- NOTE | 2024-01-03 16:01 | MHC.PC.OV ---
Vital Signs 01/03/24 16:02 Height 4 ft 4.9 in Weight 116 lb 8 oz BMI 29.3 BP 122/60 Blood Pressure Location Lt brachial Position Sitting Pulse 98 Pulse Source Pulse Oximeter Pulse Oximetry (%) 96 Oxygen Delivery Method Room Air Intake Visit Reasons: 4 hyperlipidemia,DM, Osteoporosis Intake Note: Patient is here to follow up on HLD, DM, Osteoporosis. Mineralogy Professor Required: No Analog Design Engineer: Present Accompanied by: Sister Allergies Sulfa (Sulfonamide Antibiotics) Allergy (Unknown, Verified 01/03/24 16:31) rash Medication List - Last Reconciled 01/03/24 by Riccardo Bang MD atorvastatin 40 mg PO DAILY blood sugar diagnostic (FreeStyle Lite Strips) As directed once a day blood-glucose meter (FreeStyle Lite Meter kit) As directed calcium carbonate-vitamin D3 600 mg-10 mcg (400 unit) 2 tabs PO BID [DIABETIC SHOES As directed] diphenhydramine HCl 25 mg PO TID PRN ferrous sulfate 325 mg PO DAILY gemfibrozil 600 mg PO BID hydroxyzine pamoate 25 mg PO TID Jardiance (empagliflozin) 25 mg PO DAILY 30 days NS lancets (FreeStyle Lancets) As directed once a day lisinopril 2.5 mg PO DAILY metformin 500 mg PO BID mirabegron ER (Myrbetriq) 50 mg PO DAILY miscellaneous medical supply 1 ea miscellaneous .daily as instructed omega 7-pxm-seo-fish oil 60-90-500 mg (Fish Oil) 1 cap PO QAM pioglitazone 15 mg PO DAILY 90 days romosozumab-aqqg (Evenity) 210 mg (2.34 mL) subcut .monthly solifenacin 10 mg PO DAILY triamcinolone acetonide 0.1% 1 appl topical BID PRN 10 days Tobacco use date assessed: 01/03/24 Fall risk assessment: No Falls in past year Last assessed Fall Risk: 01/03/24 Dental Screening Dental Screen Date: 05/08/23 HPI 4 hyperlipidemia,DM, Osteoporosis HPI Details Patient comes in today for her follow up visit States that she feels okay She denies any headaches or dizziness Denies any chest pains, no SOB No nausea/vomiting, no abdominal pain No change in bowel habits noted She had her follow up labs done at [facility] a few days ago - to discuss her results [facility] Medical History Overweight with body mass index (BMI) 25.0-29.9 Anxiety Osteoporosis Venous stasis dermatitis of both lower extremities Bilateral leg edema Primary osteoarthritis of left knee Generalized osteoarthrosis Anemia Urinary incontinence Pure hypercholesterolemia Benign essential hypertension Diabetes mellitus Surgical History History of hip surgery Family History Father Heart disease CVD (cardiovascular disease) Mother Breast cancer Diabetes Social History Housing: Assisted Living Facility Alcohol intake: never Patient Tobacco Use Status: Never used Tobacco e-Cigarette/Vaping Use: Never Used Second Hand Smoke Exposure: Yes service: No Current occupational status: retired and disabled Cognitive needs: No Hearing needs: No Vision needs: Yes (glasses) Questionnaire Thrive Questionnaire Date Thrive assessed: 05/08/23 FLORES-7 AMB Questionnaire FLORES-7 Date FLORES - 7 assessed: 09/04/23 Source: Developed by Drs. Ken Pena, Mulu Davey, Gopi Powell and colleagues, with an educational mikey from [employer]. Review of Systems Const Denies chills, Denies fatigue, Denies fever(s) and Denies headache(s) ENT Denies dysphagia, Denies dizziness, Denies otalgia, Denies headache(s), Denies neck pain, Denies odynophagia and Denies sore throat Card Denies chest pain, Denies palpitations and Denies dyspnea Resp Denies chest congestion, Denies cough and Denies dyspnea GI Denies abdominal pain, Denies constipation, Denies dysphagia, Denies heartburn, Denies diarrhea, Denies nausea, Denies odynophagia and Denies vomiting Denies hematuria, Denies difficulty voiding, Denies nocturia, Denies dysuria and Denies urinary urgency Musc Denies back pain and Denies neck pain Skin/Breast Denies rash Neuro Denies dizziness and Denies headache(s) Endo Denies fatigue and Denies palpitations Physical exam (Primary Care) Vital Signs: Last Vital Signs Pulse 98 01/03/24 16:02 BP 122/60 01/03/24 16:02 Pulse Ox 96 01/03/24 16:02 Oxygen Delivery Method Room Air 01/03/24 16:02 BMI result Body Mass Index 29.3 Tobacco/Smoking Status: Tobacco use Status Tobacco use date assessed 01/03/24 01/03/24 16:10 Patient Tobacco Use Status Never used Tobacco 01/03/24 16:10 e-Cigarette/Vaping Use Never Used 01/03/24 16:10 Thrive Assessment: Date of Thrive Assessment Date Thrive assessed 05/08/23 01/03/24 16:10 Const General: no acute distress and alert HENMT Ears: TM's normal bilaterally and EAC's normal Throat: Yes posterior oropharynx normal and Yes tonsils normal (no TP congestion) Neck Neck: Yes no lymphadenopathy and Yes supple Thyroid: Thyroid normal Resp Auscultation: clear to auscultation bilaterally, no rales and no wheezes Cardio Rate: regular rate Rhythm: regular rhythm Heart sounds: no murmurs GI Palpation (GI): Soft to palpation and nontender Auscultation: normal bowel sounds General: Yes no CVA tenderness Back/Spine/Pelvis Back: no CVA tenderness Skin Rashes: no rashes Extrem General: No clubbing, No cyanosis and Yes edema (trace bipedal edema) Results AMB Hemoglobin A1c AMB Hemoglobin A1c 7.4 % Last Edit by ABDULAZIZ Saez on 01/03/24 16:14 Results Reviewed Results Reviewed: Laboratory Last Values Hgb A1c (Clinic) 7.4 % (4.0-6.0) H 01/03/24 16:01 Coding Level of Care Code Est Pt Level 4 (18424) Complex EM visit Add On G2211 Diagnoses Type 2 diabetes mellitus without complication, without long-term current use of insulin E11.9 Diabetes mellitus complication status: without complication Diabetes mellitus residential insulin use: without residential use Diabetes mellitus type: type 2 Pure hypercholesterolemia E78.00 Benign essential hypertension I10 Iron deficiency anemia secondary to inadequate dietary iron intake D50.8 Anemia type: iron deficiency Iron deficiency anemia type: inadequate dietary iron intake Urinary incontinence, unspecified type R32 Urinary Incontinence type: unspecified incontinence Primary osteoarthritis of left knee M17.12 Venous stasis dermatitis of both lower extremities I87.2 Bilateral leg edema R60.0 Age-related osteoporosis without current pathological fracture M81.0 Osteoporosis type: age-related Presence of current pathological fracture: without current pathological fracture Anxiety F41.9 Overweight with body mass index (BMI) 25.0-29.9 E66.3 Assessment & Plan Assessment & Plan (1) Diabetes mellitus: Code(s): E11.9 - Type 2 diabetes mellitus without complications Category: Medical Qualifiers: Diabetes mellitus complication status: without complication Diabetes mellitus residential insulin use: without residential use Diabetes mellitus type: type 2 Qualified Code(s): E11.9 - Type 2 diabetes mellitus without complications Plan: In-office HgbA1c done today is at 7.4%; her HgbA1c was at 7.9% on her labs done a few days ago on 12/31/2023 (her in-office HgbA1c was at 7.0% back in August 2023) - goal is <7.0% Reinforced diabetic diet Continue Metformin 500 mg BID, Jardiance 25 mg Q AM and Pioglitazone 15 mg QD She was previously taken off Glipizide ER 5 mg QD as it was causing her to experience frequent hypoglycemic symptoms and her blood sugar was going too low often Will recheck her labs and HgbA1c in 4 months for follow up and if her HgbA1c continues to stay over 7.0%, may need to adjust some of her Rx dosage again (2) Pure hypercholesterolemia: Code(s): E78.00 - Pure hypercholesterolemia, unspecified Category: Medical Plan: Results of her labs done at [facility] a few days ago reviewed and discussed with patient Reinforced low cholesterol diet Continue Atorvastatin 40 mg QD and Gemfibrozil 600 mg BID Will recheck her labs and fasting lipids in 4 months for follow up (3) Benign essential hypertension: Code(s): I10 - Essential (primary) hypertension Category: Medical Plan: Reinforced low sodium diet - goal is systolic BP of at least 140 to 150 mm or less BP logs from her rest home continues to show adequate BP control, with systolic BPs usually running at 140 mm or less Continue Lisinopril 2.5 mg QD (4) Anemia: Code(s): D64.9 - Anemia, unspecified Category: Medical Qualifiers: Anemia type: iron deficiency Iron deficiency anemia type: inadequate dietary iron intake Qualified Code(s): D50.8 - Other iron deficiency anemias Plan: Continue Ferrous sulfate 325 mg QD Will continue to monitor her CBC regularly (5) Urinary incontinence: Code(s): R32 - Unspecified urinary incontinence Category: Medical Qualifiers: Urinary Incontinence type: unspecified incontinence Qualified Code(s): R32 - Unspecified urinary incontinence Plan: Continue Vesicare 10 mg QD Follow up with urology as scheduled (6) Primary osteoarthritis of left knee: Code(s): M17.12 - Unilateral primary osteoarthritis, left knee Category: Medical Plan: X-rays of the left knee done a couple of years ago showed (+) OA changes Continue Acetaminophen 500 mg Q 6 to 8 hours PRN for pain (7) Venous stasis dermatitis of both lower extremities: Code(s): I87.2 - Venous insufficiency (chronic) (peripheral) Category: Medical Plan: Continue Triamcinolone acetonide cream 0.1% apply to affected areas BID PRN (8) Bilateral leg edema: Code(s): R60.0 - Localized edema Category: Medical Plan: She still has some leg swelling but this has improved significantly from previous - patient is reminded to keep her legs elevated as often as she can to help minimize her edema Patient also wears support stockings whenever she can to help with her symptoms (recommended by the wound clinic previously) and currently has a hospital bed, which has helped a lot with her edema (9) Osteoporosis: Code(s): M81.0 - Age-related osteoporosis without current pathological fracture Category: Medical Qualifiers: Osteoporosis type: age-related Presence of current pathological fracture: without current pathological fracture Qualified Code(s): M81.0 - Age-related osteoporosis without current pathological fracture Plan: BMD done in 03/2016 showed no significant changes compared to her baseline BMD in 2012 Repeat BMD done on 01/18/2022 revealed a significant decline (14.8%) in her right femur BMD from previous; (+) severe osteoporosis with the lowest T score of -3.6 in the femoral neck Continue oral Calcium supplements daily She was on Alendronate 70 mg weekly but this was discontinued by Dr. Amor a few months ago as she has been on the Rx for > 5 years now She is now seeing Dr. Amor for endocrinology follow up and management of her osteoporosis and has been receiving Evenity injections 210 mcg SQ once a month although patient missed her dose recently Have advised them to reach out to Dr. Amor's office to reschedule her Evenity injection (10) Anxiety: Code(s): F41.9 - Anxiety disorder, unspecified Category: Medical Plan: Continue Hydroxyzine 25 mg every 8 hours PRN (11) Overweight with body mass index (BMI) 25.0-29.9: Code(s): E66.3 - Overweight Category: Medical Plan: Reinforced diet; exercise and weight loss are unrealistic given patient's comorbidities and poor functional and mobility status Plan Follow up in 4 months Orders: Orders AMB Hemoglobin A1c 01/03/24 E11.9 - Type 2 diabetes mellitus without complications Microalbumin, Random (w Creat) 4 Months E11.9 - Type 2 diabetes mellitus without complications Hemoglobin A1c 4 Months E11.9 - Type 2 diabetes mellitus without complications Vitamin D 25-OH Total 4 Months E55.9 - Vitamin D deficiency, unspecified Free T4 (Free Thyroxine) 4 Months R79.89 - Other specified abnormal findings of blood chemistry Complete Blood Count Auto Diff 4 Months D64.9 - Anemia, unspecified Comprehensive [place]. Panel Fast 4 Months E78.00 - Pure hypercholesterolemia, unspecified UA CC w/rflx Micro + Cult 4 Months R30.0 - Dysuria Lipid Panel 4 Months E78.00 - Pure hypercholesterolemia, unspecified Vitamin B12 and Folate 4 Months E53.8 - Deficiency of other specified B group vitamins Thyroid Stimulating Hormone 4 Months R79.89 - Other specified abnormal findings of blood chemistry
[2024-01-03 16:02] VITALS: BP 122/60; PULSE 98; O2SAT 96; BMI 29.3
== END 2024-01-03 17:16 ==
PROVIDERS: PCP Internal Medicine; Visit Provider Internal Medicine
DX: E11.9 Type 2 diabetes mellitus without complications (principal)

== ENCOUNTER → 2024-01-03 15:56 | Outpatient (BNVA) | payer MEDICARE, MEDICAID, SELFPAY | PROVIDERS: PCP Internal Medicine; Visit Provider Internal Medicine | DX: E11.9 Type 2 diabetes mellitus without complications (principal); E78.00 Pure hypercholesterolemia, unspecified; I10 Essential (primary) hypertension; D50.8 Other iron deficiency anemias; R32 Unspecified urinary incontinence; M17.12 Unilateral primary osteoarthritis, left knee; I87.2 Venous insufficiency (chronic) (peripheral) | CPT/HCPCS: 83036; 99212 ==

== ENCOUNTER 2024-07-01 16:22 | Outpatient (AMB) | payer MEDICARE, MEDICAID, SELFPAY ==
--- NOTE | 2024-07-01 16:25 | MHC.PC.OV ---
Vital Signs 07/01/24 16:28 Height 4 ft 4.9 in Weight 114 lb 4 oz BMI 28.7 BP 132/40 L Blood Pressure Location Lt brachial Position Sitting Pulse 95 Pulse Source Pulse Oximeter Pulse Oximetry (%) 97 Oxygen Delivery Method Room Air Intake Visit Reasons: follow up Intake Note: Patient is here to follow up on DM, HTN, Hypercholesterolemia. 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: Not Required per policy Accompanied by: Sister Allergies Sulfa (Sulfonamide Antibiotics) Allergy (Unknown, Verified 07/01/24 16:44) rash Medication List - Last Reconciled 07/01/24 by Riccardo Bang MD atorvastatin 40 mg PO DAILY blood sugar diagnostic (FreeStyle Lite Strips) As directed once a day blood-glucose meter (FreeStyle Lite Meter kit) As directed calcium carbonate-vitamin D3 600 mg-10 mcg (400 unit) 2 tabs PO BID [DIABETIC SHOES As directed] diphenhydramine HCl 25 mg PO TID PRN ferrous sulfate 325 mg PO DAILY gemfibrozil 600 mg PO BID hydroxyzine pamoate 25 mg PO TID Jardiance (empagliflozin) 25 mg PO DAILY 30 days NS lancets (FreeStyle Lancets) As directed once a day lisinopril 2.5 mg PO DAILY metformin 500 mg PO BID mirabegron ER (Myrbetriq) 50 mg PO DAILY miscellaneous medical supply 1 ea miscellaneous .daily as instructed omega 9-rrq-izg-fish oil 60-90-500 mg (Fish Oil) 1 cap PO QAM pioglitazone 15 mg PO DAILY 90 days romosozumab-aqqg (Evenity) 210 mg (2.34 mL) subcut .monthly solifenacin 10 mg PO DAILY triamcinolone acetonide 0.1% 1 appl topical BID PRN 10 days Tobacco use date assessed: 07/01/24 Fall risk assessment: No Falls in past year Last assessed Fall Risk: 07/01/24 Dental Screening Dental Screen Date: 07/01/24 Did you have a dental visit in the last 12 months?: Yes Did you have a dental problem in the last 6 months where you did not have access to dental care?: No Was dental information given to patient?: Patient has dentist HPI follow up HPI Details Patient comes in today for her follow up visit - is accompanied by her sister today Patient states that she feels okay She denies any headaches or dizziness Denies any chest pains, no increased SOB No nausea/vomiting, no abdominal pain No change in bowel habits noted She had her follow up labs done at [facility] - to discuss her results [facility] Medical History Overweight with body mass index (BMI) 25.0-29.9 Anxiety Osteoporosis Venous stasis dermatitis of both lower extremities Bilateral leg edema Primary osteoarthritis of left knee Generalized osteoarthrosis Anemia Urinary incontinence Pure hypercholesterolemia Benign essential hypertension Diabetes mellitus Surgical History History of hip surgery Family History Father Heart disease CVD (cardiovascular disease) Mother Breast cancer Diabetes Social History Housing: Assisted Living Facility Alcohol intake: never Patient Tobacco Use Status: Never used Tobacco e-Cigarette/Vaping Use: Never Used Second Hand Smoke Exposure: Yes service: No Current occupational status: retired and disabled Cognitive needs: No Hearing needs: No Vision needs: Yes (glasses) Questionnaire PHQ-9 Over the last 2 weeks, how often have you been bothered by any of the following problems? 1. Little interest or pleasure in doing things: not at all 2. Feeling down, depressed, or hopeless: not at all 3. Trouble falling or staying asleep, or sleeping too much: not at all 4. Feeling tired or having little energy: not at all 5. Poor appetite or overeating: not at all 6. Feeling bad about yourself - or that you are a failure or have let yourself or your family down: not at all 7. Trouble concentrating on things, such as reading the newspaper or watching television: not at all 8. Moving or speaking so slowly that other people could have noticed. Or the opposite - being so fidgety or restless that you have been moving around a lot more than usual: not at all 9. Thoughts that you would be better off or of hurting yourself in some way: not at all Total score: 0 Depression Screening Interpretation: Negative Depression Screening Done: Yes 57587 - PHQ-9 Billing: Yes Source: Developed by Drs. Ken Pena, Mulu Davey, Gopi Powell and colleagues, with an educational mikey from [employer]. Thrive Questionnaire Date Thrive assessed: 07/01/24 I am a: Patient What is your living situation today?: I have a steady place to live Within the past 12 months, did the food you bought not last and you didn't have the money to get more?: Never true Do you have trouble paying for medicines?: No Do you have trouble getting transportation to medical appointments?: No Do you have trouble paying your heating and electricity bill?: No Do you have trouble taking care of your child, family member or friend?: No Do you have trouble with day-to-day activities such as bathing, preparing meals, shopping, managing finances, etc.?: No Are you currently unemployed and looking for a job?: No Are you interested in more education?: No Please select the resources that you would like help with: None Currently or been in a relationship where the following occur: No concerns reported THRIVE Score: 0 AUDIT C Alcohol Use Questionnaire (AUDIT-C) 1. How often do you have a drink containing alcohol?: Never 3. How often do you have six or more drinks on one occasion?: Never Total Score: 0 Score Reviewed/Action Taken: Yes FLORES-7 AMB Questionnaire FLORES-7 Date FLORES - 7 assessed: 07/01/24 Feeling nervous, anxious, or on edge: 0 = Not at all Not being able to stop or control worryin = Not at all Worrying too much about different things: 0 = Not at all Trouble relaxin = Not at all Being so restless that it is hard to sit still: 0 = Not at all Becoming easily annoyed or irritable: 0 = Not at all Feeling afraid as if something awful might happen: 0 = Not at all Total FLORES-7 score (0-4 normal; 5-9 mild; 10-14 moderate; 15-21 severe): 0 Source: Developed by Drs. Ken Pena, Gopi Clark and colleagues, with an educational mikey from [employer]. Review of Systems Const Denies chills, Denies fatigue, Denies fever(s) and Denies headache(s) ENT Denies dysphagia, Denies dizziness, Denies otalgia, Denies headache(s), Denies neck pain, Denies odynophagia and Denies sore throat Card Denies chest pain, Denies palpitations and Denies dyspnea Resp Denies chest congestion, Denies cough and Denies dyspnea GI Denies abdominal pain, Denies constipation, Denies dysphagia, Denies heartburn, Denies diarrhea, Denies nausea, Denies odynophagia and Denies vomiting Denies hematuria, Denies difficulty voiding, Denies nocturia, Denies dysuria and Denies urinary urgency Musc Reports back pain (on and off) and Denies neck pain Skin/Breast Denies rash Neuro Denies dizziness and Denies headache(s) Endo Denies fatigue and Denies palpitations Physical exam (Primary Care) Vital Signs: Last Vital Signs Pulse 95 07/01/24 16:28 BP 132/40 L 07/01/24 16:28 Pulse Ox 97 07/01/24 16:28 Oxygen Delivery Method Room Air 07/01/24 16:28 BMI result Body Mass Index 28.7 Tobacco/Smoking Status: Tobacco use Status Tobacco use date assessed 07/01/24 07/01/24 16:28 Patient Tobacco Use Status Never used Tobacco 07/01/24 16:28 e-Cigarette/Vaping Use Never Used 07/01/24 16:28 PHQ-9: PHQ-9 Score PHQ-9: Total score 0 07/01/24 16:45 Depression Screening Interpretation: Negative Thrive Assessment: Date of Thrive Assessment Date Thrive assessed 07/01/24 07/01/24 16:28 Currently or been in a relationship where the following occur: No concerns reported Const General: no acute distress and alert HENMT Ears: TM's normal bilaterally and EAC's normal Throat: Yes posterior oropharynx normal and Yes tonsils normal (no TP congestion) Neck Neck: Yes supple and No lymphadenopathy Thyroid: Thyroid normal Resp Auscultation: clear to auscultation bilaterally, no rales and no wheezes Cardio Rate: regular rate Rhythm: regular rhythm Heart sounds: no murmurs GI Palpation (GI): Soft to palpation and nontender Auscultation: normal bowel sounds General: Yes no CVA tenderness Back/Spine/Pelvis Back: no CVA tenderness Thoracic/Lumbar Spine: Thoracic/lumbar scoliosis Skin Rashes: no rashes Extrem General: No clubbing, No cyanosis and Yes edema (trace bipedal edema) Results AMB Hemoglobin A1c AMB Hemoglobin A1c 7.1 % Last Edit by AZAEL Bird on 07/01/24 16:45 Results Reviewed Results Reviewed: Laboratory Last Values Hgb A1c (Clinic) 7.1 % (4.0-6.0) H 07/01/24 16:24 Coding Level of Care Code Est Pt Level 4 (87681) Diagnoses Type 2 diabetes mellitus without complication, without long-term current use of insulin E11.9 Diabetes mellitus complication status: without complication 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: without care home use Diabetes mellitus type: type 2 Pure hypercholesterolemia E78.00 Benign essential hypertension I10 Iron deficiency anemia secondary to inadequate dietary iron intake D50.8 Anemia type: iron deficiency Iron deficiency anemia type: inadequate dietary iron intake Urinary incontinence, unspecified type R32 Urinary Incontinence type: unspecified incontinence Primary osteoarthritis of left knee M17.12 Venous stasis dermatitis of both lower extremities I87.2 Bilateral leg edema R60.0 Age-related osteoporosis without current pathological fracture M81.0 Osteoporosis type: age-related Presence of current pathological fracture: without current pathological fracture Anxiety F41.9 Overweight with body mass index (BMI) 25.0-29.9 E66.3 Additional Codes PHQ-9 - 06935 - PHQ-9 Billing: Yes ([id number]) Assessment & Plan Assessment & Plan (1) Diabetes mellitus: Code(s): E11.9 - Type 2 diabetes mellitus without complications Category: Medical Qualifiers: Diabetes mellitus complication status: without complication Diabetes mellitus care home insulin use: without local intermodal truck driver use Diabetes mellitus type: type 2 Qualified Code(s): E11.9 - Type 2 diabetes mellitus without complications Plan: In-office HgbA1c done today is at 7.1% (was at 7.4% a few months ago) - goal is <7.0% Reinforced diabetic diet Continue Metformin 500 mg BID, Jardiance 25 mg Q AM and Pioglitazone 15 mg QD She was previously taken off Glipizide ER 5 mg QD as it was causing her to experience frequent hypoglycemic symptoms and her blood sugar was going too low often Will recheck her labs and HgbA1c in 4 months for follow up (2) Pure hypercholesterolemia: Code(s): E78.00 - Pure hypercholesterolemia, unspecified Category: Medical Plan: Results of her labs done at [facility] last week reviewed and discussed with patient Reinforced low cholesterol diet Continue Atorvastatin 40 mg QD and Gemfibrozil 600 mg BID Will recheck her labs and fasting lipids in 4 months for follow up (3) Benign essential hypertension: Code(s): I10 - Essential (primary) hypertension Category: Medical Plan: Reinforced low sodium diet - goal is systolic BP of at least 140 to 150 mm or less BP logs from her rest home continues to show adequate BP control, with systolic BPs usually running at 140 mm or less Continue Lisinopril 2.5 mg QD (4) Anemia: Code(s): D64.9 - Anemia, unspecified Category: Medical Qualifiers: Anemia type: iron deficiency Iron deficiency anemia type: inadequate dietary iron intake Qualified Code(s): D50.8 - Other iron deficiency anemias Plan: Continue Ferrous sulfate 325 mg QD Will continue to monitor her CBC regularly (5) Urinary incontinence: Code(s): R32 - Unspecified urinary incontinence Category: Medical Qualifiers: Urinary Incontinence type: unspecified incontinence Qualified Code(s): R32 - Unspecified urinary incontinence Plan: Continue Vesicare 10 mg QD Follow up with urology as scheduled (6) Primary osteoarthritis of left knee: Code(s): M17.12 - Unilateral primary osteoarthritis, left knee Category: Medical Plan: X-rays of the left knee done a couple of years ago showed (+) OA changes Continue Acetaminophen 500 mg Q 6 to 8 hours PRN for pain (7) Venous stasis dermatitis of both lower extremities: Code(s): I87.2 - Venous insufficiency (chronic) (peripheral) Category: Medical Plan: Continue Triamcinolone acetonide cream 0.1% apply to affected areas BID PRN (8) Bilateral leg edema: Code(s): R60.0 - Localized edema Category: Medical Plan: She currently still has some on and off lower leg swelling bilaterally - patient is reminded to keep her legs elevated as often as she can to help minimize her edema Patient also wears support stockings whenever she can to help with her symptoms (recommended by the wound clinic previously) and currently has a hospital bed, which has helped a lot with her edema (9) Osteoporosis: Code(s): M81.0 - Age-related osteoporosis without current pathological fracture Category: Medical Qualifiers: Osteoporosis type: age-related Presence of current pathological fracture: without current pathological fracture Qualified Code(s): M81.0 - Age-related osteoporosis without current pathological fracture Plan: BMD done in 03/2016 showed no significant changes compared to her baseline BMD in 2012 Repeat BMD done on 01/18/2022 revealed a significant decline (14.8%) in her right femur BMD from previous; (+) severe osteoporosis with the lowest T score of -3.6 in the femoral neck Continue oral Calcium supplements daily She was on Alendronate 70 mg weekly but this was discontinued by Dr. Amor a few months ago as she has been on the Rx for > 5 years now She is now seeing Dr. Amor for endocrinology follow up and management of her osteoporosis and has been receiving Evenity injections 210 mcg SQ once a month (10) Anxiety: Code(s): F41.9 - Anxiety disorder, unspecified Category: Medical Plan: Continue Hydroxyzine 25 mg every 8 hours PRN (11) Overweight with body mass index (BMI) 25.0-29.9: Code(s): E66.3 - Overweight Category: Medical Plan: Reinforced diet; exercise and weight loss are unrealistic given patient's comorbidities and poor functional and mobility status Plan Follow up in 4 months Orders: Orders Hemoglobin A1c 4 Months E11.9 - Type 2 diabetes mellitus without complications Comprehensive [place]. Panel Fast 4 Months E78.00 - Pure hypercholesterolemia, unspecified Lipid Panel 4 Months E78.00 - Pure hypercholesterolemia, unspecified Microalbumin, Random (w Creat) 4 Months E11.9 - Type 2 diabetes mellitus without complications UA CC w/rflx Micro + Cult 4 Months R30.0 - Dysuria Vitamin B12 and Folate 4 Months E53.8 - Deficiency of other specified B group vitamins Vitamin D 25-OH Total 4 Months E55.9 - Vitamin D deficiency, unspecified AMB Hemoglobin A1c 07/01/24 E11.9 - Type 2 diabetes mellitus without complications Complete Blood Count Auto Diff 4 Months D64.9 - Anemia, unspecified TSH reflex Free T4 4 Months E78.00 - Pure hypercholesterolemia, unspecified
[2024-07-01 16:28] VITALS: BP 132/40; PULSE 95; O2SAT 97; BMI 28.7
--- OUTSIDE RECORDS SUMMARY | 2024-07-01 18:35 | XMS_ITS | Encounter Summary ---
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 - Main Lab [address] [place] [address] Noris Phillips MD [facility] [address] [place] [address] Type 2 diabetes mellitus without complications (CMS/HCC V24, CMS/HCC V28); Essential (primary) hypertension; Hyperlipidemia, unspecified; Vitamin D deficiency, unspecified Social History Tobacco Use Types Packs/Day Years Used Date Smoking Tobacco: Never Assessed Comments Unknown Sex and Gender Information Value Date Recorded Sex Assigned at Not on file Legal Sex Female 10:59 PM EST Gender Identity Not on file Sexual Orientation Not on file documented as of this encounter Plan of Treatment Not on file documented as of this encounter Procedures Procedure Name Priority Date/Time Associated Diagnosis Comments LIPID PANEL WITH REFLEX TO DIRECT LDL Routine 06/23/2024 7:30 AM EDT Type 2 diabetes mellitus without complications (CMS/HCC V24, CMS/HCC V28) Essential (primary) hypertension Hyperlipidemia, unspecified Vitamin D deficiency, unspecified CBC WITH AUTO DIFFERENTIAL Routine 06/23/2024 7:30 AM EDT Type 2 diabetes mellitus without complications (CMS/HCC V24, CMS/HCC V28) Essential (primary) hypertension Hyperlipidemia, unspecified Vitamin D deficiency, unspecified VITAMIN D 25 HYDROXY Routine 06/23/2024 7:30 AM EDT Type 2 diabetes mellitus without complications (CMS/HCC V24, CMS/HCC V28) Essential (primary) hypertension Hyperlipidemia, unspecified Vitamin D deficiency, unspecified CBC AND DIFFERENTIAL Routine 06/23/2024 7:30 AM EDT Type 2 diabetes mellitus without complications ([facility] V24, [facility] V28) Essential (primary) hypertension Hyperlipidemia, unspecified Vitamin D deficiency, unspecified THYROID STIMULATING HORMONE Routine 06/23/2024 7:30 AM EDT Type 2 diabetes mellitus without complications ([facility] V24, [facility] V28) Essential (primary) hypertension Hyperlipidemia, unspecified Vitamin D deficiency, unspecified THYROXINE FREE Routine 06/23/2024 7:30 AM EDT Type 2 diabetes mellitus without complications ([facility] V24, [facility] V28) Essential (primary) hypertension Hyperlipidemia, unspecified Vitamin D deficiency, unspecified HEMOGLOBIN A1C Routine 06/23/2024 7:30 AM EDT Type 2 diabetes mellitus without complications ([facility] V24, [facility] V28) Essential (primary) hypertension Hyperlipidemia, unspecified Vitamin D deficiency, unspecified COMPREHENSIVE METABOLIC PANEL Routine 06/23/2024 7:30 AM EDT Type 2 diabetes mellitus without complications ([facility] V24, [facility] V28) Essential (primary) hypertension Hyperlipidemia, unspecified Vitamin D deficiency, unspecified documented in this encounter Results * (ABNORMAL) CBC auto differential (06/23/2024 7:30 AM EDT) [facility] Signature WBC 3.5(L) 4.8 - 10.8 K/mcL LAB HEMETOLOGY METHOD 06/23/2024 10:21 AM EDT [facility] RBC 3.30(L) 3.80 - 4.80 M/mcL LAB HEMETOLOGY METHOD 06/23/2024 10:21 AM T [facility] Hemoglobin 10.1(L) 11.5 - 16.0 g/dL LAB HEMETOLOGY METHOD 06/23/2024 10:21 AM [facility] Hematocrit 31.5(L) 35.0 - 47.0 % LAB HEMETOLOGY METHOD 06/23/2024 10:21 AM [facility] MCV 96.9 79.0 - 98.0 FL LAB HEMETOLOGY METHOD 06/23/2024 10:21 AM [facility] MCH 31.1 27.0 - 32.0 pcg LAB HEMETOLOGY METHOD 06/23/2024 10:21 AM [facility] MCHC 32.1 32.0 - 37.0 g/dL LAB HEMETOLOGY METHOD 06/23/2024 10:21 AM [facility] RDW 14.8 11.0 - 15.0 % LAB HEMETOLOGY METHOD 06/23/2024 10:21 AM [facility] Platelets 118(L) 130 - 400 K/mcL LAB HEMETOLOGY METHOD 06/23/2024 10:21 AM [facility] MPV 11.7(H) 7.0 - 11.0 FL LAB HEMETOLOGY METHOD 06/23/2024 10:21 AM [facility] NRBC 0.0 <1.0 % LAB HEMETOLOGY METHOD 06/23/2024 10:21 AM [facility] NRBC Absolute 0.00 <0.10 K/mcL LAB HEMETOLOGY METHOD 06/23/2024 10:21 AM [facility] Neutrophils Relative 49.1 % LAB HEMETOLOGY METHOD 06/23/2024 10:21 AM [facility] Lymphocytes Relative 32.2 % LAB HEMETOLOGY METHOD 06/23/2024 10:21 AM [facility] Monocytes Relative 11.9 % LAB HEMETOLOGY METHOD 06/23/2024 10:21 AM [facility] Eosinophils Relative 5.9 % LAB HEMETOLOGY METHOD 06/23/2024 10:21 AM EDT [facility] Basophils Relative 0.6 % LAB HEMETOLOGY METHOD 06/23/2024 10:21 AM EDT [facility] Immature Granulocytes Relative 0.3 % LAB HEMETOLOGY METHOD 06/23/2024 10:21 AM EDT [facility] Neutrophils Absolute 1.74 1.50 - 7.00 K/mcL LAB HEMETOLOGY METHOD 06/23/2024 10:21 AM EDT [facility] Lymphocytes Absolute 1.14 1.00 - 5.00 K/mcL LAB HEMETOLOGY METHOD 06/23/2024 10:21 AM EDT [facility] Monocytes Absolute 0.42 0.20 - 1.00 K/mcL LAB HEMETOLOGY METHOD 06/23/2024 10:21 AM EDT [facility] Eosinophils Absolute 0.21 0.00 - 0.50 K/mcL LAB HEMETOLOGY METHOD 06/23/2024 10:21 AM EDT [facility] Basophils Absolute 0.02 0.00 - 0.20 K/mcL LAB HEMETOLOGY METHOD 06/23/2024 10:21 AM EDT [facility] Immature Granulocytes Absolute 0.01 0.00 - 0.03 K/mcL LAB HEMETOLOGY METHOD 06/23/2024 10:21 AM EDT [facility] Blood Venous blood specimen / Unknown Venipuncture / Unknown 06/23/2024 7:30 AM EDT 06/23/2024 10:07 AM EDT us Noris Phillips MD LAB BLOOD ORDERABLES Final R esult [facility] [address] [place] [address], * Vitamin D 25 hydroxy (06/23/2024 7:30 AM EDT) Vit D, 25-Hydroxy 43.6 30.0 - 80.0 ng/mL LAB CHEMISTRY METHOD 06/23/2024 11:24 AM EDT [facility] Blood Venous blood specimen / Unknown Venipuncture / Unknown 06/23/2024 7:30 AM EDT 06/23/2024 10:07 AM EDT Noris Phillips MD LAB BLOOD ORDERABLES Final R esult Performing Organization Address [facility]/ZIP Co de Phone Number [facility] [address] [place] [address], [place] [phone] * Thyroxine free (06/23/2024 7:30 AM EDT) Free T4 0.99 0.70 - 1.80 ng/dL LAB CHEMISTRY METHOD 06/23/2024 11:24 AM EDT [facility] Blood Venous blood specimen / Unknown Venipuncture / Unknown 06/23/2024 7:30 AM EDT 06/23/2024 10:07 AM EDT us Noris Phillips MD LAB BLOOD ORDERABLES Final R esult Performing Organization Address [facility]/ZIP Co de Phone Number [facility] [address] [place] [address], [place] [phone] * (ABNORMAL) Thyroid stimulating hormone (06/23/2024 7:30 AM EDT) TSH 4.95(H) 0.40 - 4.00 mcIU/mL LAB CHEMISTRY METHOD 06/23/2024 11:24 AM EDT [facility] Blood Venous blood specimen / Unknown Venipuncture / Unknown 06/23/2024 7:30 AM EDT 06/23/2024 10:07 AM EDT Noris Phillips MD LAB BLOOD ORDERABLES Final R esult [facility] [address] [place] [address], [place] [phone] * (ABNORMAL) Hemoglobin A1c (06/23/2024 7:30 AM EDT) Hemoglobin A1C 7.4(H) <6.5 % LAB CHEMISTRY METHOD 06/23/2024 2:05 PM EDT [facility] Mean Bld Glu Estim. 166 mg/dL LAB CHEMISTRY METHOD 06/23/2024 2:05 PM EDT [facility] Blood Venous blood specimen / Unknown Venipuncture / Unknown 06/23/2024 7:30 AM EDT 06/23/2024 10:07 AM EDT us Noris Phillips MD LAB BLOOD ORDERABLES Final R esult [facility] [address] [place] [address], [place] [phone] * Lipid panel with reflex to direct LDL (06/23/2024 7:30 AM EDT) Cholesterol 135 0 - 200 mg/dL LAB CHEMISTRY METHOD 06/23/2024 10:43 AM EDT [facility] Triglycerides 49 0 - 150 mg/dL LAB CHEMISTRY METHOD 06/23/2024 10:43 AM EDT [facility] HDL 80 >=40 mg/dL LAB CHEMISTRY METHOD 06/23/2024 10:43 AM EDT [facility] LDL Calculated 45 0 - 100 mg/dL LAB CHEMISTRY METHOD 06/23/2024 10:43 AM EDT [facility] VLDL Cholesterol Marlon 9.8 mg/dL LAB CHEMISTRY METHOD 06/23/2024 10:43 AM EDT [facility] Non HDL Chol. (LDL+VLDL) 55 <145 mg/dL LAB CHEMISTRY METHOD 06/23/2024 10:43 AM [facility] Chol/HDL Ratio 1.7 0.0 - 4.4 LAB CHEMISTRY METHOD 06/23/2024 10:43 AM [facility] Blood Venous blood specimen / Unknown Venipuncture / Unknown 06/23/2024 7:30 AM EDT 06/23/2024 10:07 AM EDT us Noris Phillips MD LAB BLOOD ORDERABLES Final R esult [facility] [address] [place] [address], [place] [phone] * (ABNORMAL) Comprehensive metabolic panel (06/23/2024 7:30 AM EDT) Sodium 140 133 - 145 mmol/L LAB CHEMISTRY METHOD 06/23/2024 10:42 AM [facility] Potassium 4.0 3.5 - 5.5 mmol/L LAB CHEMISTRY METHOD 06/23/2024 10:42 AM [facility] Chloride 108 96 - 110 mmol/L LAB CHEMISTRY METHOD 06/23/2024 10:42 AM [facility] CO2 26 21 - 32 mmol/L LAB CHEMISTRY METHOD 06/23/2024 10:42 AM [facility] Anion Gap 6 3 - 11 LAB CHEMISTRY METHOD 06/23/2024 10:42 AM [facility] Glucose 111(H) 70 - 100 mg/dL LAB CHEMISTRY METHOD 06/23/2024 10:42 AM [facility] BUN 24 5 - 25 mg/dL LAB CHEMISTRY METHOD 06/23/2024 10:42 AM [facility] Creatinine 0.93 0.50 - 1.10 mg/dL LAB CHEMISTRY METHOD 06/23/2024 10:42 AM [facility] eGFR 64 >=60 mL/min/1. 73m2 LAB CHEMISTRY METHOD 06/23/2024 10:42 AM [facility] Comment:Calculation based on the??Chronic Kidney Disease Epidemiology Collaboration (CKD-EPI) equation refit??without adjustment for race. BUN/Creatinine Ratio 25.8 LAB CHEMISTRY METHOD 06/23/2024 10:42 AM [facility] Calcium 9.4 8.5 - 10.5 mg/dL LAB CHEMISTRY METHOD 06/23/2024 10:42 AM [facility] AST (SGOT) 20 10 - 42 unit/L LAB CHEMISTRY METHOD 06/23/2024 10:42 AM [facility] ALT (SGPT) 13 10 - 60 unit/L LAB CHEMISTRY METHOD 06/23/2024 10:42 AM [facility] Alkaline Phosphatase 59 42 - 121 unit/L LAB CHEMISTRY METHOD 06/23/2024 10:42 AM [facility] Total Protein 6.5 6.0 - 8.0 g/dL LAB CHEMISTRY METHOD 06/23/2024 10:42 AM [facility] Albumin 3.6 3.2 - 5.0 g/dL LAB CHEMISTRY METHOD 06/23/2024 10:42 AM [facility] Total Bilirubin 0.7 0.0 - 1.4 mg/dL LAB CHEMISTRY METHOD 06/23/2024 10:42 AM [facility] Blood Venous blood specimen / Unknown Venipuncture / Unknown 06/23/2024 7:30 AM EDT 06/23/2024 10:07 AM EDT us Noris Phillips MD LAB BLOOD ORDERABLES Final R esult [facility] [address] [place] [address], [place] [phone] documented in this encounter Visit Diagnoses Diagnosis Type 2 diabetes mellitus without complications (CMS/[facility] V24, [facility] V28) Essential (primary) hypertension Unspecified essential hypertension Hyperlipidemia, unspecified Vitamin D deficiency, unspecified documented in this encounter Care Teams Lamp Shade Maker Relationship Specialty Start Date End Date Riccardo Bang MD [address] [place] [address] [address] [place] PCP - General Internal Medicine 06/22/24 documented as of this encounter
--- OUTSIDE RECORDS SUMMARY | 2024-07-01 18:35 | XMS_ITS | Clinical Summary ---
Author Organization 299 [facility] Address [address] [place] [address] Phone Care Team Providers Care Mold Insert Changer Name Role Phone Riccardo Bang MD Primary Care Provider Encounters Date Type Department Care Team Description 06/23/[address] [facility] [address] [place] [phone] Riccardo Bang MD Dysuria; Type 2 diabetes mellitus without complications ([facility] V24, [facility] V28) 06/22/[address] [facility] [address] [place] [phone] Noris Phillips MD Type 2 diabetes mellitus without complications ([facility] V24, [facility] V28); Essential (primary) hypertension; Hyperlipidemia, unspecified; Vitamin D deficiency, unspecified 04/27/[address] [facility] [address] [place] [phone] Riccardo Bang MD Type 2 diabetes mellitus without complications ([facility] V24, [facility] V28); Vitamin D deficiency, unspecified; Anemia, unspecified; Pure hypercholesterolemia, unspecified; Deficiency of other specified B group vitamins; Other specified abnormal findings of blood chemistry from Last 3 Months Social History Tobacco Use Types Packs/Day Years Used Date Smoking Tobacco: Never Assessed Comments Unknown Sex and Gender Information Value Date Recorded Sex Assigned at Not on file Legal Sex Female 10:59 PM EST Gender Identity Not on file Sexual Orientation Not on file Plan of Treatment Health Maintenance Due Date Last Done Comments Diabetes: Annual Foot Exam 1959 Diabetes: Annual Retina Eye Exam 1959 DTaP,Tdap,and Td Vaccines (1 - Tdap) 1968 Pneumococcal Vaccine: 50+ Ye ars (1 of 2 - PCV) 1968 Zoster Vaccines (1 of 2) 1999 COVID-19 Vaccine (1 - 2023-2 5 season) 2023 RSV Immunization Adult Patie nts (1 - 1-dose 75+ series) 2024 Colorectal Cancer Screening: Colonoscopy 04/28/2024 Depression Screening 04/28/2024 Falls Risk Assessment 04/28/2024 Hepatitis C Screening 04/28/2024 Medicare Annual Wellness Visit 04/28/2024 Osteoporosis Screening (Bone Density Screening) 04/28/2024 Social Influencers of Health Screening 04/28/2024 Influenza Vaccine (Season Ended) 2024 Diabetes: Blood Sugar Contro l Test (HGBA1C) 12/23/2024 06/23/2024 Diabetes: Annual Urine Albumin-Creatinine Ratio (uACR) 06/22/2025 06/22/2024 Diabetes: Annual GFR (Glomer ular Filtration Rate) 06/23/2025 06/23/2024 Hypertension/CHF/CAD Annual BMP Blood Test 06/23/2025 06/23/2024 Cholesterol Screening (Lipid Panel) 06/23/2029 06/23/2024 HIB Vaccines Aged Out No longer eligi ble based on patient's age to complete this topic HPV Vaccines Aged Out No longer eligi ble based on patient's age to complete this topic Hepatitis A Vaccines Aged Out No long er eligible based on patient's age to complete this topic Hepatitis B Vaccines Aged Out No long er eligible based on patient's age to complete this topic IPV Vaccines Aged Out No longer eligi ble based on patient's age to complete this topic MMR Vaccines Aged Out No longer eligi ble based on patient's age to complete this topic Meningococcal ACWY Vaccine Aged Out N o longer eligible based on patient's age to complete this topic Meningococcal B Vaccine Aged Out No l onger eligible based on patient's age to complete this topic RSV Immunization Patients Un myles 20 months Aged Out No longer eligible b ased on patient's age to complete this topic Varicella Vaccines Aged Out No longer eligible based on patient's age to complete this topic Procedures Procedure Name Priority Date/Time Associated Diagnosis Comments CBC WITH AUTO DIFFERENTIAL Routine 06/23/2024 7:30 AM EDT Type 2 diabetes mellitus without complications ([facility]/HCC V24, [facility] V28) Essential (primary) hypertension Hyperlipidemia, unspecified Vitamin D deficiency, unspecified VITAMIN D 25 HYDROXY Routine 06/23/2024 7:30 AM EDT Type 2 diabetes mellitus without complications ([facility]/HCC V24, [facility] V28) Essential (primary) hypertension Hyperlipidemia, unspecified Vitamin D deficiency, unspecified THYROXINE FREE Routine 06/23/2024 7:30 AM EDT Type 2 diabetes mellitus without complications ([facility] V24, [facility] V28) Essential (primary) hypertension Hyperlipidemia, unspecified Vitamin D deficiency, unspecified THYROID STIMULATING HORMONE Routine 06/23/2024 7:30 AM EDT Type 2 diabetes mellitus without complications ([facility] V24, [facility] V28) Essential (primary) hypertension Hyperlipidemia, unspecified Vitamin D deficiency, unspecified HEMOGLOBIN A1C Routine 06/23/2024 7:30 AM EDT Type 2 diabetes mellitus without complications ([facility] V24, [facility] V28) Essential (primary) hypertension Hyperlipidemia, unspecified Vitamin D deficiency, unspecified LIPID PANEL WITH REFLEX TO DIRECT LDL Routine 06/23/2024 7:30 AM EDT Type 2 diabetes mellitus without complications ([facility] V24, [facility] V28) Essential (primary) hypertension Hyperlipidemia, unspecified Vitamin D deficiency, unspecified COMPREHENSIVE METABOLIC PANEL Routine 06/23/2024 7:30 AM EDT Type 2 diabetes mellitus without complications ([facility]/HCC V24, [facility] V28) Essential (primary) hypertension Hyperlipidemia, unspecified Vitamin D deficiency, unspecified CBC AND DIFFERENTIAL Routine 06/23/2024 7:30 AM EDT Type 2 diabetes mellitus without complications ([facility] V24, [facility] V28) Essential (primary) hypertension Hyperlipidemia, unspecified Vitamin D deficiency, unspecified URINALYSIS WITH REFLEX MICROSCOPIC AND CULTURE Routine 06/22/2024 6:15 AM EDT Dysuria Type 2 diabetes mellitus without complications ([facility] V24, [facility] V28) MICROALBUMIN CREATININE URINE RATIO Routine 06/22/2024 6:15 AM EDT Dysuria Type 2 diabetes mellitus without complications ([facility] V24, [facility] V28) MAN URINE CULTURE TUBE Routine 06/22/2024 6:15 AM EDT Dysuria Type 2 diabetes mellitus without complications ([facility] [place], [facility] V28) URINALYSIS WITH REFLEX MICROSCOPIC AND CULTURE Routine 06/22/2024 6:15 AM EDT Dysuria Type 2 diabetes mellitus without complications ([facility] [place], [facility] V28) CULTURE URINE Routine 06/22/2024 6:15 AM EDT Dysuria Type 2 diabetes mellitus without complications ([facility] [place]24, [facility] V28) from Last 3 Months Results * Lipid panel with reflex to direct LDL (06/23/2024 7:30 AM EDT) Cholesterol 135 0 - 200 mg/dL LAB CHEMISTRY METHOD 06/23/2024 10:43 AM [facility] Triglycerides 49 0 - 150 mg/dL LAB CHEMISTRY METHOD 06/23/2024 10:43 AM [facility] HDL 80 >=40 mg/dL LAB CHEMISTRY METHOD 06/23/2024 10:43 AM [facility] LDL Calculated 45 0 - 100 mg/dL LAB CHEMISTRY METHOD 06/23/2024 10:43 AM [facility] VLDL Cholesterol Marlon 9.8 mg/dL LAB CHEMISTRY METHOD 06/23/2024 10:43 AM [facility] Non HDL Chol. (LDL+VLDL) 55 <145 mg/dL LAB CHEMISTRY METHOD 06/23/2024 10:43 AM [facility] Chol/HDL Ratio 1.7 0.0 - 4.4 LAB CHEMISTRY METHOD 06/23/2024 10:43 AM EDT [facility] Blood Venous blood specimen / Unknown Venipuncture / Unknown 06/23/2024 7:30 AM EDT 06/23/2024 10:07 AM EDT us Noris Phillips MD LAB BLOOD ORDERABLES Final R esult [facility] [address] [place] [address], [place] [phone] * (ABNORMAL) CBC auto differential (06/23/2024 7:30 AM EDT) WBC 3.5(L) 4.8 - 10.8 K/mcL LAB HEMETOLOGY METHOD 06/23/2024 10:21 AM [facility] RBC 3.30(L) 3.80 - 4.80 [facility] HEMETOLOGY METHOD 06/23/2024 10:21 AM [facility] Hemoglobin 10.1(L) 11.5 - 16.0 g/dL LAB HEMETOLOGY METHOD 06/23/2024 10:21 AM [facility] Hematocrit 31.5(L) 35.0 - 47.0 % LAB HEMETOLOGY METHOD 06/23/2024 10:21 AM [facility] MCV 96.9 79.0 - 98.0 FL LAB HEMETOLOGY METHOD 06/23/2024 10:[facility] MCH 31.1 27.0 - 32.0 pcg LAB HEMETOLOGY METHOD 06/23/2024 10:21 AM [facility] MCHC 32.1 32.0 - 37.0 g/dL LAB HEMETOLOGY METHOD 06/23/2024 10:21 AM [facility] RDW 14.8 11.0 - 15.0 % LAB HEMETOLOGY METHOD 06/23/2024 10:21 AM [facility] Platelets 118(L) 130 - 400 K/mcL LAB HEMETOLOGY METHOD 06/23/2024 10:21 AM [facility] MPV 11.7(H) 7.0 - 11.0 FL LAB HEMETOLOGY METHOD 06/23/2024 10:21 AM [facility] NRBC 0.0 <1.0 % LAB HEMETOLOGY METHOD 06/23/2024 10:21 AM [facility] NRBC Absolute 0.00 <0.10 K/mcL LAB HEMETOLOGY METHOD 06/23/2024 10:21 AM [facility] Neutrophils Relative 49.1 % LAB HEMETOLOGY METHOD 06/23/2024 10:21 AM [facility] Lymphocytes Relative 32.2 % LAB HEMETOLOGY METHOD 06/23/2024 10:21 AM [facility] Monocytes Relative 11.9 % LAB HEMETOLOGY METHOD 06/23/2024 10:21 AM [facility] Eosinophils Relative 5.9 % LAB HEMETOLOGY METHOD 06/23/2024 10:21 AM [facility] Basophils Relative 0.6 % LAB HEMETOLOGY METHOD 06/23/2024 10:21 AM [facility] Immature Granulocytes Relative 0.3 % LAB HEMETOLOGY METHOD 06/23/2024 10:21 AM [facility] Neutrophils Absolute 1.74 1.50 - 7.00 K/mcL LAB HEMETOLOGY METHOD 06/23/2024 10:21 AM [facility] Lymphocytes Absolute 1.14 1.00 - 5.00 K/mcL LAB HEMETOLOGY METHOD 06/23/2024 10:21 AM [facility] Monocytes Absolute 0.42 0.20 - 1.00 K/mcL LAB HEMETOLOGY METHOD 06/23/2024 10:21 AM EDT [facility] Eosinophils Absolute 0.21 0.00 - 0.50 [facility] HEMETOLOGY METHOD 06/23/2024 10:21 AM EDT [facility] Basophils Absolute 0.02 0.00 - 0.20 [facility] LAB HEMETOLOGY METHOD 06/23/2024 10:21 AM EDT [facility] Immature Granulocytes Absolute 0.01 0.00 - 0.03 [facility] LAB HEMETOLOGY METHOD 06/23/2024 10:21 AM EDT [facility] Blood Venous blood specimen / Unknown Venipuncture / Unknown 06/23/2024 7:30 AM EDT 06/23/2024 10:07 AM EDT Noris Phillips MD LAB BLOOD ORDERABLES Final R esult [facility] [address] [place] [address], [place] [phone] * Vitamin D 25 hydroxy (06/23/2024 7:30 AM EDT) Vit D, 25-Hydroxy 43.6 30.0 - 80.0 ng/mL LAB CHEMISTRY METHOD 06/23/2024 11:24 AM EDT [facility] Blood Venous blood specimen / Unknown Venipuncture / Unknown 06/23/2024 7:30 AM EDT 06/23/2024 10:07 AM EDT Noris Phillips MD LAB BLOOD ORDERABLES Final R esult [facility] [address] [place] [address], [place] [phone] * (ABNORMAL) Thyroid stimulating hormone (06/23/2024 7:30 AM EDT) TSH 4.95(H) 0.40 - 4.00 mcIU/mL LAB CHEMISTRY METHOD 06/23/2024 11:24 AM EDT [facility] Blood Venous blood specimen / Unknown Venipuncture / Unknown 06/23/2024 7:30 AM EDT 06/23/2024 10:07 AM EDT Noris Phillips MD LAB BLOOD ORDERABLES Final R esult Performing Organization Address [facility]/ZIP Co de Phone Number [facility] [address] [place] [address], [place] [phone] * Thyroxine free (06/23/2024 7:30 AM EDT) Free T4 0.99 0.70 - 1.80 ng/dL LAB CHEMISTRY METHOD 06/23/2024 11:24 AM EDT [facility] Blood Venous blood specimen / Unknown Venipuncture / Unknown 06/23/2024 7:30 AM EDT 06/23/2024 10:07 AM EDT Noris Phillips MD LAB BLOOD ORDERABLES Final R esult Performing Organization Address City/[facility]/ZIP Co de Phone Number [facility] [address] [place] [address], [place] [phone] * (ABNORMAL) Hemoglobin A1c (06/23/2024 7:30 AM EDT) Hemoglobin A1C 7.4(H) <6.5 % LAB CHEMISTRY METHOD 06/23/2024 2:05 PM EDT [facility] Mean Bld Glu Estim. 166 mg/dL LAB CHEMISTRY METHOD 06/23/2024 2:05 PM EDT [facility] Blood Venous blood specimen / Unknown Venipuncture / Unknown 06/23/2024 7:30 AM EDT 06/23/2024 10:07 AM EDT us Noris Phillips MD LAB BLOOD ORDERABLES Final R esult [facility] [address] [place] [address], [place] [phone] * (ABNORMAL) Comprehensive metabolic panel (06/23/2024 7:30 AM EDT) Sodium 140 133 - 145 mmol/L LAB CHEMISTRY METHOD 06/23/2024 10:42 AM [facility] Potassium 4.0 3.5 - 5.5 mmol/L LAB CHEMISTRY METHOD 06/23/2024 10:42 AM [facility] Chloride 108 96 - 110 mmol/L LAB CHEMISTRY METHOD 06/23/2024 10:42 AM [facility] CO2 26 21 - 32 mmol/L LAB CHEMISTRY METHOD 06/23/2024 10:42 AM [facility] Anion Gap 6 3 - 11 LAB CHEMISTRY METHOD 06/23/2024 10:42 AM [facility] Glucose 111(H) 70 - 100 mg/dL LAB CHEMISTRY METHOD 06/23/2024 10:42 AM [facility] BUN 24 5 - 25 mg/dL LAB CHEMISTRY METHOD 06/23/2024 10:42 AM [facility] Creatinine 0.93 0.50 - 1.10 mg/dL LAB CHEMISTRY METHOD 06/23/2024 10:42 AM [facility] eGFR 64 >=60 mL/min/1. 73m2 LAB CHEMISTRY METHOD 06/23/2024 10:42 AM [facility] Comment:Calculation based on the??Chronic Kidney Disease Epidemiology Collaboration (CKD-EPI) equation refit??without adjustment for race. BUN/Creatinine Ratio 25.8 LAB CHEMISTRY METHOD 06/23/2024 10:42 AM [facility] Calcium 9.4 8.5 - 10.5 mg/dL LAB CHEMISTRY METHOD 06/23/2024 10:42 AM [facility] AST (SGOT) 20 10 - 42 unit/L LAB CHEMISTRY METHOD 06/23/2024 10:42 AM [facility] ALT (SGPT) 13 10 - 60 unit/L LAB CHEMISTRY METHOD 06/23/2024 10:42 AM [facility] Alkaline Phosphatase 59 42 - 121 unit/L LAB CHEMISTRY METHOD 06/23/2024 10:42 AM [facility] Total Protein 6.5 6.0 - 8.0 g/dL LAB CHEMISTRY METHOD 06/23/2024 10:42 AM [facility] Albumin 3.6 3.2 - 5.0 g/dL LAB CHEMISTRY METHOD 06/23/2024 10:42 AM [facility] Total Bilirubin 0.7 0.0 - 1.4 mg/dL LAB CHEMISTRY METHOD 06/23/2024 10:42 AM [facility] Blood Venous blood specimen / Unknown Venipuncture / Unknown 06/23/2024 7:30 AM EDT 06/23/2024 10:07 AM EDT us Noris Phillips MD LAB BLOOD ORDERABLES Final R esult [facility] [address] [place] [address], [place] [phone] * (ABNORMAL) Urinalysis with reflex microscopic and culture (06/22/2024 6:15 AM EDT) Specific [place] Urine 1.010 1.003 - 1.030 LAB URINALYSIS - AUTOMATED METHOD 06/23/2024 10:21 AM [facility] pH, Urine 7.0 5.0 - 8.0 pH LAB URINALYSIS - AUTOMATED METHOD 06/23/2024 10:21 AM [facility] Leukocytes, Urine Moderate(A) Negative LAB URINALYSIS - AUTOMATED METHOD 06/23/2024 10:21 AM [facility] Nitrite, Urine Negative Negative LAB URINALYSIS - AUTOMATED METHOD 06/23/2024 10:21 AM [facility] Protein, Urine Negative <=Trace mg/dL LAB URINALYSIS - AUTOMATED METHOD 06/23/2024 10:21 AM [facility] Glucose, Urine >=1000(A) Negative mg/dL LAB URINALYSIS - AUTOMATED METHOD 06/23/2024 10:21 AM [facility] Ketones, Urine Negative Negative mg/dL LAB URINALYSIS - AUTOMATED METHOD 06/23/2024 10:21 AM [facility] Urobilinogen , Urine 0.2 0.2 - 1.0 mg/dL LAB URINALYSIS - AUTOMATED METHOD 06/23/2024 10:21 AM [facility] Bilirubin, Urine Negative Negative LAB URINALYSIS - AUTOMATED METHOD 06/23/2024 10:21 AM [facility] Blood, Urine Negative Negative LAB URINALYSIS - AUTOMATED METHOD 06/23/2024 10:21 AM [facility] RBC, Urine 1.3 0 - 4 /HPF LAB URINALYSIS - AUTOMATED METHOD 06/23/2024 10:21 AM [facility] WBC, Urine 13.4(H) 0 - 4 /HPF LAB URINALYSIS - AUTOMATED METHOD 06/23/2024 10:21 AM [facility] Squamous Epithelial, Urine 30 0 - 60 /LPF LAB URINALYSIS - AUTOMATED METHOD 06/23/2024 10:21 AM [facility] Bacteria, Urine Negative Negative /HPF LAB URINALYSIS - AUTOMATED METHOD 06/23/2024 10:21 AM [facility] Hyaline Casts, Urine 0.0 0 - 3 /LPF LAB URINALYSIS - AUTOMATED METHOD 06/23/2024 10:21 AM EDT [facility] Urine Urine specimen from urethra / Unknown Non-blood Collection / Unknown 06/22/2024 6:15 AM EDT 06/23/2024 9:33 AM EDT Riccardo Bang MD LAB URINE ORDERABLES Final R esult Performing Organization Address City/[facility]/ZIP Co de Phone Number [facility] [address] [place] [address], [place] [phone] * Man urine culture tube (06/22/2024 6:15 AM EDT) Extra Tube Hold for add-ons. 06/23/2024 11:01 AM EDT [facility] Comment:Auto resulted. Urine Urine specimen from urethra / Unknown Non-blood Collection / Unknown 06/22/2024 6:15 AM EDT 06/23/2024 9:33 AM EDT Riccardo Bang MD LAB URINE ORDERABLES Final R esult Performing Organization Address City/[facility]/ZIP Co de Phone Number [facility] [address] [place] [address], [place] [phone] * Microalbumin creatinine urine ratio (06/22/2024 6:15 AM EDT) Creatinine, Urine 20.0 mg/dL LAB CHEMISTRY METHOD 06/23/2024 10:50 AM EDT [facility] Microalb, Ur <5.0 0.0 - 29.0 mg/L LAB CHEMISTRY METHOD 06/23/2024 10:50 AM EDT [facility] Microalb/Creat Ratio <25 <30 mg/g creat LAB CHEMISTRY METHOD 06/23/2024 10:50 AM EDT [facility] Urine Urine specimen from urethra / Unknown Non-blood Collection / Unknown 06/22/2024 6:15 AM EDT 06/23/2024 9:33 AM EDT Riccardo Bang MD LAB URINE ORDERABLES Final R esult Performing Organization Address City/[facility]/ZIP Co de Phone Number [facility] [address] [place] [address], [place] [phone] * Culture urine (06/22/2024 6:15 AM EDT) Culture, Urine <10,000 cfu/mL Mixed bacterial ish 06/24/2024 10:29 AM EDT [facility] Urine Urine specimen from urethra / Unknown Non-blood Collection / Unknown 06/22/2024 6:15 AM EDT 06/23/2024 10:20 AM EDT Riccardo Bang MD LAB MICROBIOLOGY - GENERAL O RDERABLES Final Result Performing Organization Address [facility]/ZIP Co de Phone Number [facility] [address] [place] [address], [place] [phone] from Last 3 Months Insurance MEDICARE MEDICAID - [place] Care Teams Mold Insert Changer Relationship Specialty Start Date End Date Riccardo Bang MD [address] [place] [address] [address] [place], [place] PCP - General Internal Medicine 06/22/24
--- OUTSIDE RECORDS SUMMARY | 2024-07-01 18:35 | XMS_ITS | Encounter Summary ---
Author Organization [facility] Address [address] [place] [address] Care Team Providers Care Touch Up Carver Name Role Phone Riccardo Bang MD Primary Care Provider Encounter Details Date Type Department Care Team (Late st Contact Info) Description 04/27/2024 Lab Requisition [facility] - Main Lab [address] [facility] [place] [address] Riccardo Bang MD [address] [place] [address] Dr Chambers [address] [place] [address] Type 2 diabetes mellitus without complications (CMS/HCC V24, CMS/HCC V28); Vitamin D deficiency, unspecified; Anemia, unspecified; Pure hypercholesterolemia, unspecified; Deficiency of other specified B group vitamins; Other specified abnormal findings of blood chemistry Social History Tobacco Use Types Packs/Day Years Used Date Smoking Tobacco: Never Assessed Comments Unknown Sex and Gender Information Value Date Recorded Sex Assigned at Not on file Legal Sex Female 10:59 PM EST Gender Identity Not on file Sexual Orientation Not on file documented as of this encounter Plan of Treatment Not on file documented as of this encounter Visit Diagnoses Diagnosis Type 2 diabetes mellitus without complications (CMS/HCC V24, [facility] V28) Vitamin D deficiency, unspecified Anemia, unspecified Pure hypercholesterolemia, unspecified Deficiency of other specified B group vitamins Other specified abnormal findings of blood chemistry documented in this encounter Care Teams Touch Up Carver Relationship Specialty Start Date End Date Riccardo Bang MD [address] [place] [address] Dr Chambers [address] [place] [address] [place] PCP - General Internal Medicine 06/22/24 documented as of this encounter
--- OUTSIDE RECORDS SUMMARY | 2024-07-01 18:35 | XMS_ITS | Encounter Summary ---
Author Organization [employer] Address [address] [place] [address] Care Team Providers Care Outboard Motor Mechanic Name Role Phone Riccardo Bang MD Primary Care Provider Encounter Details Date Type Department Care Team (Late st Contact Info) Description 06/23/[address] [facility] - Main Lab [address] [facility] [place] [address] Riccardo Bang MD [address] [place] [address] Dysuria; Type 2 diabetes mellitus without complications (CMS/[facility] V24, CMS/[facility] V28) Social History Tobacco Use Types Packs/Day Years [...] Procedure Name Priority Date/Time Associated Diagnosis Comments URINALYSIS WITH REFLEX MICROSCOPIC AND CULTURE Routine 06/22/2024 6:15 AM EDT Dysuria Type 2 diabetes mellitus without complications (CMS/HCC V24, CMS/HCC V28) MAN URINE CULTURE TUBE Routine 06/22/2024 6:15 AM EDT Dysuria Type 2 diabetes mellitus without complications (CMS/HCC V24, CMS/HCC V28) MICROALBUMIN CREATININE URINE RATIO Routine 06/22/2024 6:15 AM EDT Dysuria Type 2 diabetes mellitus without complications (CMS/HCC V24, CMS/HCC V28) URINALYSIS WITH REFLEX MICROSCOPIC AND CULTURE Routine 06/22/2024 6:15 AM EDT Dysuria Type 2 diabetes mellitus without complications (CMS/HCC V24, [facility] V28) CULTURE URINE Routine 06/22/2024 6:15 AM EDT Dysuria Type 2 diabetes mellitus without complications ([facility] V24, [facility] V28) documented in this encounter Results * Culture urine (06/22/2024 6:15 AM EDT) Pathologist [facility] Culture, Urine <10,000 cfu/mL Mixed bacterial ish 06/24/2024 10:[address] [facility] Urine Urine specimen from urethra / Unknown Non-blood Collection / Unknown 06/22/2024 6:15 AM EDT 06/23/2024 10:20 AM EDT us Riccardo Bang MD LAB MICROBIOLOGY - GENERAL O RDERABLES Final Result [facility] [address] [place] [address], [place] [phone] * (ABNORMAL) Urinalysis with reflex microscopic and culture (06/22/2024 6:15 AM EDT) [facility] Specific [place] Urine 1.010 1.003 - 1.030 LAB URINALYSIS - AUTOMATED METHOD 06/23/2024 10:21 AM [facility] pH, Urine 7.0 5.0 - 8.0 pH LAB URINALYSIS - AUTOMATED METHOD 06/23/2024 10:21 AM [facility] Leukocytes, Urine Moderate(A) Negative LAB URINALYSIS - AUTOMATED METHOD 06/23/2024 10:[address] [facility] Nitrite, Urine Negative Negative LAB URINALYSIS - AUTOMATED METHOD 06/23/2024 10:21 AM [facility] Protein, Urine Negative <=Trace mg/dL LAB URINALYSIS - AUTOMATED METHOD 06/23/2024 10:21 AM [facility] Glucose, Urine >=1000(A) Negative mg/dL LAB URINALYSIS - AUTOMATED METHOD 06/23/2024 10:21 AM [facility] Ketones, Urine Negative Negative mg/dL LAB URINALYSIS - AUTOMATED METHOD 06/23/2024 10:21 AM [facility] Urobilinogen , Urine 0.2 0.2 - 1.0 mg/dL LAB URINALYSIS - AUTOMATED METHOD 06/23/2024 10:21 AM [facility] Bilirubin, Urine Negative Negative LAB URINALYSIS - AUTOMATED METHOD 06/23/2024 10:21 AM [facility] Blood, Urine Negative Negative LAB URINALYSIS - AUTOMATED METHOD 06/23/2024 10:21 AM [facility] RBC, Urine 1.3 0 - 4 /HPF LAB URINALYSIS - AUTOMATED METHOD 06/23/2024 10:21 AM [facility] WBC, Urine 13.4(H) 0 - 4 /HPF LAB URINALYSIS - AUTOMATED METHOD 06/23/2024 10:21 AM [facility] Squamous Epithelial, Urine 30 0 - 60 /LPF LAB URINALYSIS - AUTOMATED METHOD 06/23/2024 10:21 AM [facility] Bacteria, Urine Negative Negative /HPF LAB URINALYSIS - AUTOMATED METHOD 06/23/2024 10:21 AM [facility] Hyaline Casts, Urine 0.0 0 - 3 /LPF LAB URINALYSIS - AUTOMATED METHOD 06/23/2024 10:21 AM [facility] Urine Urine specimen from urethra / Unknown Non-blood Collection / Unknown 06/22/2024 6:15 AM EDT 06/23/2024 9:33 AM EDT us Riccardo Bang MD LAB URINE ORDERABLES Final R esult [facility] [address] [place] [address], [place] [phone] * Microalbumin creatinine urine ratio (06/22/2024 6:15 AM EDT) Creatinine, Urine 20.0 mg/dL LAB CHEMISTRY METHOD 06/23/2024 10:[address] [facility] Microalb, Ur <5.0 0.0 - 29.0 mg/L LAB CHEMISTRY METHOD 06/23/2024 10:[address] [facility] Microalb/Creat Ratio <25 <30 mg/g creat LAB CHEMISTRY METHOD 06/23/2024 10:[address] [facility] Urine Urine specimen from urethra / Unknown Non-blood Collection / Unknown 06/22/2024 6:15 AM EDT 06/23/2024 9:33 AM EDT Riccardo Bang MD LAB URINE ORDERABLES Final R esult Performing Organization Address City/[facility]/ZIP Co de Phone Number [facility] [address] [place] [address], [place] [phone] * Man urine culture tube (06/22/2024 6:15 AM EDT) Extra Tube Hold for add-ons. 06/23/2024 11:[address] [facility] Comment:Auto resulted. Urine Urine specimen from urethra / Unknown Non-blood Collection / Unknown 06/22/2024 6:15 AM EDT 06/23/2024 9:33 AM EDT Riccardo Bang MD LAB URINE ORDERABLES Final R esult [facility] [address] [place] [address], [place] [phone] documented in this encounter Visit Diagnoses Diagnosis Dysuria Type 2 diabetes mellitus without complications (CMS/[facility] V24, CMS/[facility] V28) documented in this encounter Care Teams Outboard Motor Mechanic Relationship Specialty Start Date End Date Riccardo Bang MD [address] [place] [address] Dr Reyes [address]uiar PCP - General Internal Medicine 06/22/24 documented as of this encounter
== END 2024-07-01 17:00 | disposition home or self-care (01) ==
LOC: HO.HMCH 16:22
PROVIDERS: PCP Internal Medicine; Visit Provider Internal Medicine
DX: E11.9 Type 2 diabetes mellitus without complications (principal); E78.00 Pure hypercholesterolemia, unspecified; I10 Essential (primary) hypertension; D50.8 Other iron deficiency anemias; R32 Unspecified urinary incontinence; M17.12 Unilateral primary osteoarthritis, left knee; I87.2 Venous insufficiency (chronic) (peripheral); R60.0 Localized edema; M81.0 Age-related osteoporosis without current pathological fracture; F41.9 Anxiety disorder, unspecified; E66.3 Overweight

== ENCOUNTER → 2024-07-01 16:22 | Outpatient (BNVA) | payer MEDICARE, MEDICAID, SELFPAY | PROVIDERS: PCP Internal Medicine; Visit Provider Internal Medicine | DX: E11.9 Type 2 diabetes mellitus without complications (principal); E78.00 Pure hypercholesterolemia, unspecified; I10 Essential (primary) hypertension; D50.8 Other iron deficiency anemias; R32 Unspecified urinary incontinence; M17.12 Unilateral primary osteoarthritis, left knee; R60.0 Localized edema; I87.2 Venous insufficiency (chronic) (peripheral); M81.0 Age-related osteoporosis without current pathological fracture; F41.9 Anxiety disorder, unspecified; E66.3 Overweight; Z68.28 Body mass index [BMI] 28.0-28.9, adult; Z71.3 Dietary counseling and surveillance | CPT/HCPCS: 83036; 96127; 99212 ==

== ENCOUNTER 2024-11-20 16:02 | Outpatient (AMB) | payer MEDICARE, MEDICAID, SELFPAY ==
[2024-11-20 16:05] VITALS: BP 132/50; PULSE 90; O2SAT 99; BMI 28.5
--- NOTE | 2024-11-20 16:05 | MHC.PC.OV ---
Vital Signs 11/20/24 16:05 Height 4 ft 4.9 in Weight 113 lb 5.082 oz BMI 28.5 BP 132/50 L Blood Pressure Location Lt brachial Position Sitting Pulse 90 Pulse Source Pulse Oximeter Pulse Oximetry (%) 99 Oxygen Delivery Method Room Air Intake Visit Reasons: DM, CKD, hyperlipidemia, HTN Agency Legal Counsel Required: No Accompanied by: Self / Same As Patient Allergies Sulfa (Sulfonamide Antibiotics) Allergy (Unknown, Verified 11/20/24 16:38) rash Medication List - Last Reconciled 11/20/24 by Riccardo Bang MD atorvastatin 40 mg PO DAILY blood sugar diagnostic (FreeStyle Lite Strips) As directed once a day blood-glucose meter (FreeStyle Lite Meter kit) As directed calcium carbonate-vitamin D3 600 mg-10 mcg (400 unit) 2 tabs PO BID [DIABETIC SHOES As directed] diphenhydramine HCl 25 mg PO TID PRN ferrous sulfate 325 mg PO DAILY gemfibrozil 600 mg PO BID hydroxyzine pamoate 25 mg PO TID Jardiance (empagliflozin) 25 mg PO DAILY 30 days NS lancets (FreeStyle Lancets) As directed once a day lisinopril 2.5 mg PO DAILY metformin 500 mg PO BID mirabegron ER (Myrbetriq) 50 mg PO DAILY miscellaneous medical supply 1 ea miscellaneous .daily as instructed omega 9-dmc-pgm-fish oil 60-90-500 mg (Fish Oil) 1 cap PO QAM pioglitazone 15 mg PO DAILY 90 days romosozumab-aqqg (Evenity) 210 mg (2.34 mL) subcut .monthly solifenacin 10 mg PO DAILY triamcinolone acetonide 0.1% 1 appl topical BID PRN 10 days Tobacco use date assessed: 11/20/24 Fall risk assessment: No Falls in past year Last assessed Fall Risk: 11/20/24 Dental Screening Dental Screen Date: 11/20/24 Did you have a dental visit in the last 12 months?: No Did you have a dental problem in the last 6 months where you did not have access to dental care?: No Was dental information given to patient?: No HPI DM, CKD, hyperlipidemia, HTN HPI Details Patient comes in today for her follow up visit - is accompanied as usual by her sister She is still residing at [facility] here in [place] and her sister goes to pick her up and bring her here for her follow up appointments regularly Patient states that she feels okay She denies any headaches or dizziness Denies any chest pains, no increased SOB No nausea/vomiting, no abdominal pain No change in bowel habits noted She had her follow up labs done at [facility] a few days ago - to discuss her results [facility] Medical History (Updated 11/21/24 @ 15:31 by Riccardo Bang MD) Vitamin B12 deficiency Overweight with body mass index (BMI) 25.0-29.9 Anxiety Osteoporosis Venous stasis dermatitis of both lower extremities Bilateral leg edema Primary osteoarthritis of left knee Generalized osteoarthrosis Anemia Urinary incontinence Pure hypercholesterolemia Benign essential hypertension Diabetes mellitus Surgical History History of hip surgery Family History Father Heart disease CVD (cardiovascular disease) Mother Breast cancer Diabetes Social History Housing: Assisted Living Facility Alcohol intake: never Patient Tobacco Use Status: Never used Tobacco e-Cigarette/Vaping Use: Never Used Second Hand Smoke Exposure: Yes service: No Current occupational status: retired and disabled Cognitive needs: No Hearing needs: No Vision needs: Yes (glasses) Questionnaire PHQ-9 Over the last 2 weeks, how often have you been bothered by any of the following problems? Depression Screening Interpretation: Negative Depression Screening Done: Yes Source: Developed by Drs. Ken Pena, Mulu Davey, Gopi Powell and colleagues, with an educational mikey from [employer]. Thrive Questionnaire Date Thrive assessed: 07/01/24 Currently or been in a relationship where the following occur: No concerns reported THRIVE Score: 0 AUDIT C Alcohol Use Questionnaire (AUDIT-C) 1. How often do you have a drink containing alcohol?: Never 3. How often do you have six or more drinks on one occasion?: Never Total Score: 0 Score Reviewed/Action Taken: Yes FLORES-7 AMB Questionnaire FLORES-7 Date FLORES - 7 assessed: 07/01/24 Source: Developed by Drs. Ken Pena, Gopi Clarknke and colleagues, with an educational mikey from [employer]. Review of Systems Const Denies chills, Denies fatigue, Denies fever(s) and Denies headache(s) ENT Denies dysphagia, Denies dizziness, Denies otalgia, Denies headache(s), Denies neck pain, Denies odynophagia and Denies sore throat Card Denies chest pain, Denies palpitations and Denies dyspnea Resp Denies chest congestion, Denies cough and Denies dyspnea GI Denies abdominal pain, Denies constipation, Denies dysphagia, Denies heartburn, Denies diarrhea, Denies nausea, Denies odynophagia and Denies vomiting Denies hematuria, Denies difficulty voiding, Denies nocturia, Denies dysuria and Denies urinary urgency Musc Reports back pain (on and off) and Denies neck pain Skin/Breast Denies rash Neuro Denies dizziness and Denies headache(s) Endo Denies fatigue and Denies palpitations Physical exam (Primary Care) Vital Signs: Last Vital Signs Pulse 90 11/20/24 16:05 BP 132/50 L 11/20/24 16:05 Pulse Ox 99 11/20/24 16:05 Oxygen Delivery Method Room Air 11/20/24 16:05 BMI result Body Mass Index 28.5 Tobacco/Smoking Status: Tobacco use Status Tobacco use date assessed 11/20/24 11/20/24 16:12 Patient Tobacco Use Status Never used Tobacco 11/20/24 16:12 e-Cigarette/Vaping Use Never Used 11/20/24 16:12 Depression Screening Interpretation: Negative Thrive Assessment: Date of Thrive Assessment Date Thrive assessed 07/01/24 11/20/24 16:12 Currently or been in a relationship where the following occur: No concerns reported Const General: no acute distress and alert HENMT Ears: TM's normal bilaterally and EAC's normal Throat: Yes posterior oropharynx normal and Yes tonsils normal (no TP congestion) Neck Neck: Yes supple and No lymphadenopathy Thyroid: Thyroid normal Resp Auscultation: clear to auscultation bilaterally, no rales and no wheezes Cardio Rate: regular rate Rhythm: regular rhythm Heart sounds: no murmurs GI Palpation (GI): Soft to palpation and nontender Auscultation: normal bowel sounds General: Yes no CVA tenderness Back/Spine/Pelvis Back: no CVA tenderness Thoracic/Lumbar Spine: Thoracic/lumbar scoliosis Skin Rashes: no rashes Extrem General: No clubbing, No cyanosis and Yes edema (trace bipedal edema) Results AMB Hemoglobin A1c AMB Hemoglobin A1c 6.8 % Last Edit by ABDULAZIZ Benz on 11/20/24 16:45 Results Reviewed Results Reviewed: Laboratory Last Values Hgb A1c (Clinic) 6.8 % (4.0-6.0) H 11/20/24 16:12 Coding Level of Care Code Est Pt Level 4 (72374) Diagnoses Type 2 diabetes mellitus without complication, without long-term current use of insulin E11.9 Diabetes mellitus complication status: without complication Diabetes mellitus senior living insulin use: without senior living use Diabetes mellitus type: type 2 Pure hypercholesterolemia E78.00 Benign essential hypertension I10 Iron deficiency anemia secondary to inadequate dietary iron intake D50.8 Anemia type: iron deficiency Iron deficiency anemia type: inadequate dietary iron intake Vitamin B12 deficiency E53.8 Primary osteoarthritis of left knee M17.12 Age-related osteoporosis without current pathological fracture M81.0 Osteoporosis type: age-related Presence of current pathological fracture: without current pathological fracture Urinary incontinence, unspecified type R32 Urinary Incontinence type: unspecified incontinence Venous stasis dermatitis of both lower extremities I87.2 Bilateral leg edema R60.0 Anxiety F41.9 Overweight with body mass index (BMI) 25.0-29.9 E66.3 Assessment & Plan Assessment & Plan (1) Diabetes mellitus: Code(s): E11.9 - Type 2 diabetes mellitus without complications Category: Medical Qualifiers: Diabetes mellitus complication status: without complication Diabetes mellitus shield operator insulin use: without senior living use Diabetes mellitus type: type 2 Qualified Code(s): E11.9 - Type 2 diabetes mellitus without complications Plan: Her HgbA1c was at 7.0% on her labs done a few days ago although her in office HgbA1c today is 6.8% (in-office HgbA1c was at 7.1% a few months ago) - goal is at least <7.0% Reinforced diabetic diet Continue Metformin 500 mg BID, Jardiance 25 mg Q AM and Pioglitazone 15 mg QD She was previously taken off Glipizide ER 5 mg QD as it was causing her to experience frequent hypoglycemic symptoms and her blood sugar was going too low often while she was on the medication Will recheck her labs and HgbA1c in 4 months for follow up (2) Pure hypercholesterolemia: Code(s): E78.00 - Pure hypercholesterolemia, unspecified Category: Medical Plan: Results of her labs done at [facility] a few days ago reviewed and discussed with patient Reinforced low cholesterol diet Continue Atorvastatin 40 mg QD and Gemfibrozil 600 mg BID Will recheck her labs and fasting lipids in 4 months for follow up (3) Benign essential hypertension: Code(s): I10 - Essential (primary) hypertension Category: Medical Plan: Reinforced low sodium diet - goal is systolic BP of at least 140 to 150 mm or less BP logs from her rest home continues to show adequate BP control, with systolic BPs usually running at 140 mm or less Continue Lisinopril 2.5 mg QD (4) Anemia: Code(s): D64.9 - Anemia, unspecified Category: Medical Qualifiers: Anemia type: iron deficiency Iron deficiency anemia type: inadequate dietary iron intake Qualified Code(s): D50.8 - Other iron deficiency anemias Plan: Patient continues to present with anemia, with her H/H at 10.4/32.4 on her recent labs although her H/H has been stable and mostly unchanged from previous Continue Ferrous sulfate 325 mg QD Will continue to monitor her CBC regularly (5) Vitamin B12 deficiency: Code(s): E53.8 - Deficiency of other specified B group vitamins Category: Medical Plan: She is advised that her Vitamin B12 level is borderline low on her recent labs Will start her on oral Vitamin B12 supplements 1000 mcg QD (6) Primary osteoarthritis of left knee: Code(s): M17.12 - Unilateral primary osteoarthritis, left knee Category: Medical Plan: X-rays of the left knee done a couple of years ago showed (+) OA changes Continue Acetaminophen 500 mg Q 6 to 8 hours PRN for pain (7) Osteoporosis: Code(s): M81.0 - Age-related osteoporosis without current pathological fracture Category: Medical Qualifiers: Osteoporosis type: age-related Presence of current pathological fracture: without current pathological fracture Qualified Code(s): M81.0 - Age-related osteoporosis without current pathological fracture Plan: BMD done in 03/2016 showed no significant changes compared to her baseline BMD in 2012 Repeat BMD done on 01/18/2022 revealed a significant decline (14.8%) in her right femur BMD from previous; (+) severe osteoporosis with the lowest T score of -3.6 in the femoral neck Continue oral Calcium supplements daily She was on Alendronate 70 mg weekly but this was discontinued by Dr. Amor a few months ago as she has been on the Rx for > 5 years now She is now seeing Dr. Amor for endocrinology follow up and management of her osteoporosis and has been receiving Evenity injections 210 mcg SQ once a month (8) Urinary incontinence: Code(s): R32 - Unspecified urinary incontinence Category: Medical Qualifiers: Urinary Incontinence type: unspecified incontinence Qualified Code(s): R32 - Unspecified urinary incontinence Plan: Continue Vesicare 10 mg QD Follow up with urology as scheduled (9) Venous stasis dermatitis of both lower extremities: Code(s): I87.2 - Venous insufficiency (chronic) (peripheral) Category: Medical Plan: Continue Triamcinolone acetonide cream 0.1% apply to affected areas BID PRN (10) Bilateral leg edema: Code(s): R60.0 - Localized edema Category: Medical Plan: Patient currently still has some on and off lower leg swelling bilaterally - she is again reminded to keep her legs elevated as often as she can to help minimize her edema Patient also wears support stockings whenever she can to help with her symptoms (recommended by the wound clinic previously) and currently has a hospital bed, which has helped a lot with her edema (11) Anxiety: Code(s): F41.9 - Anxiety disorder, unspecified Category: Medical Plan: Continue Hydroxyzine 25 mg every 8 hours PRN (12) Overweight with body mass index (BMI) 25.0-29.9: Code(s): E66.3 - Overweight Category: Medical Plan: Reinforced diet; exercise and weight loss are unrealistic given patient's comorbidities and poor functional and mobility status Plan Follow up in 4 months Orders: Orders AMB Hemoglobin A1c 11/20/24 Z13.9 - Encounter for screening, unspecified Complete Blood Count Auto Diff 4 Months D64.9 - Anemia, unspecified Microalbumin, Random (w Creat) 4 Months E11.9 - Type 2 diabetes mellitus without complications TSH reflex Free T4 4 Months E78.00 - Pure hypercholesterolemia, unspecified UA CC w/rflx Micro + Cult 4 Months R30.0 - Dysuria Vitamin B12 and Folate 4 Months E53.8 - Deficiency of other specified B group vitamins Vitamin D 25-OH Total 4 Months E55.9 - Vitamin D deficiency, unspecified Comprehensive [place]. Panel Fast 4 Months E78.00 - Pure hypercholesterolemia, unspecified Lipid Panel 4 Months E78.00 - Pure hypercholesterolemia, unspecified Hemoglobin A1c 4 Months E11.9 - Type 2 diabetes mellitus without complications Medications: New mecobalamin (vitamin B12) 1,000 mcg PO DAILY 90 tabs 3RF 90 days
--- OUTSIDE RECORDS SUMMARY | 2024-11-20 17:50 | XMS_ITS | Encounter Summary ---
Author Organization [employer] Address [address] [place] [address] Care Team Providers Care Inspector Finishing Name Role Phone Riccardo Bang MD Primary Care Provider [phone] Encounter Details Date Type Department Care Team (Late st Contact Info) Description 04/27/2024 Lab Requisition [facility] - Main Lab [address] [facility] [place] [address] Riccardo Bang MD [address] [place] [address] Dr Chambers [address] [place] [address] Type 2 diabetes mellitus without complications (CMS/HCC [...] 2 diabetes mellitus without complications (CMS/HCC V24, CMS/[facility] V28) Vitamin D deficiency, unspecified Anemia, unspecified Pure hypercholesterolemia, unspecified Deficiency of other specified B group vitamins Other specified abnormal findings of blood chemistry documented in this encounter Care Teams Inspector Finishing Relationship Specialty Start Date End Date Riccardo Bang MD [address] [place] [address] Dr Chambers [address] [place] [address] [place] PCP - General Internal Medicine 06/22/24 documented as of this encounter
--- OUTSIDE RECORDS SUMMARY | 2024-11-20 17:50 | XMS_ITS | Encounter Summary ---
Author Organization [employer] Address [address] [place] [address] Care Team Providers Care Advertising Copy Writer Name Role Phone Riccardo Bang MD Primary Care Provider [phone] Encounter Details Date Type Department Care Team (Late st Contact Info) Description 11/17/2024 Lab Requisition [facility] - Main Lab 299 [facility] [place] [address] Riccardo Bang MD [address] [place] [address] Type 2 diabetes mellitus without complications (CMS/HCC V24, CMS/[facility] V28); Vitamin D deficiency, unspecified; Anemia, unspecified; Pure hypercholesterolemia, unspecified Social History Tobacco Use Types Packs/Day [...] Procedure Name Priority Date/Time Associated Diagnosis Comments THYROID STIMULATING HORMONE WITH REFLEX TO FREE T4 AND FREE T3 Routine 11/17/2024 9:36 AM EDT Type 2 diabetes mellitus without complications (CMS/HCC V24, CMS/HCC V28) Vitamin D deficiency, unspecified Anemia, unspecified Pure hypercholesterolemia , unspecified FREE THYROXINE WITH REFLEX TO FREE TRIIODOTHYRONINE Routine 11/17/2024 9:36 AM EDT Type 2 diabetes mellitus without complications (CMS/HCC V24, CMS/HCC V28) Vitamin D deficiency, unspecified Anemia, unspecified Pure hypercholesterolemia , unspecified LIPID PANEL WITH REFLEX TO DIRECT LDL Routine 11/17/2024 9:36 AM EDT Type 2 diabetes mellitus without complications (CMS/HCC V24, [facility] V28) Vitamin D deficiency, unspecified Anemia, unspecified Pure hypercholesterolemia , unspecified CBC WITH AUTO DIFFERENTIAL Routine 11/17/2024 9:36 AM EDT Type 2 diabetes mellitus without complications ([facility] V24, [facility] V28) Vitamin D deficiency, unspecified Anemia, unspecified Pure hypercholesterolemia , unspecified CBC AND DIFFERENTIAL Routine 11/17/2024 9:36 AM EDT Type 2 diabetes mellitus without complications ([facility] V24, [facility] V28) Vitamin D deficiency, unspecified Anemia, unspecified Pure hypercholesterolemia , unspecified TRIIODOTHYRONINE FREE Routine 11/17/2024 9:36 AM EDT Type 2 diabetes mellitus without complications ([facility] V24, [facility] V28) Vitamin D deficiency, unspecified Anemia, unspecified Pure hypercholesterolemia , unspecified HEMOGLOBIN A1C Routine 11/17/2024 9:36 AM EDT Type 2 diabetes mellitus without complications ([facility] V24, [facility] V28) Vitamin D deficiency, unspecified Anemia, unspecified Pure hypercholesterolemia , unspecified VITAMIN B12 Routine 11/17/2024 9:36 AM EDT Type 2 diabetes mellitus without complications ([facility] V24, [facility] V28) Vitamin D deficiency, unspecified Anemia, unspecified Pure hypercholesterolemia , unspecified COMPREHENSIVE METABOLIC PANEL Routine 11/17/2024 9:36 AM EDT Type 2 diabetes mellitus without complications ([facility] V24, [facility] V28) Vitamin D deficiency, unspecified Anemia, unspecified Pure hypercholesterolemia , unspecified documented in this encounter Results * (ABNORMAL) Triiodothyronine free (11/17/2024 9:36 AM EDT) T3, Free 216(L) 230 - 420 pcg/dL LAB CHEMISTRY METHOD 11/17/2024 5:11 PM EDT [facility] Blood Venous blood specimen / Unknown Venipuncture / Unknown 11/17/2024 9:36 AM EDT 11/17/2024 10:40 AM EDT Riccardo Bang MD LAB BLOOD ORDERABLES Final R esult Performing Organization Address City/[facility]/ZIP Co de Phone Number [facility] [address] [place] [address], [place] [phone] * Free thyroxine with reflex to free triiodothyronine (11/17/2024 9:36 AM EDT) Pathologist [facility] Free T4 0.96 0.70 - 1.80 ng/dL LAB CHEMISTRY METHOD 11/17/2024 3:16 PM EDT [facility] Blood Venous blood specimen / Unknown Venipuncture / Unknown 11/17/2024 9:36 AM EDT 11/17/2024 10:40 AM EDT Riccardo Bang MD LAB BLOOD ORDERABLES Final R esult Performing Organization Address City/[facility]/ZIP Co de Phone Number [facility] [address] [place] [address], [place] [phone] * (ABNORMAL) CBC auto differential (11/17/2024 9:36 AM EDT) [facility] WBC 3.6(L) 4.8 - 10.8 K/[facility] LAB HEMETOLOGY METHOD 11/17/2024 11:35 AM EDT [facility] RBC 3.30(L) 3.80 - 4.80 M/[facility] LAB HEMETOLOGY METHOD 11/17/2024 11:35 AM EDT [facility] Hemoglobin 10.4(L) 11.5 - 16.0 g/dL LAB HEMETOLOGY METHOD 11/17/2024 11:35 AM EDT [facility] Hematocrit 32.4(L) 35.0 - 47.0 % LAB HEMETOLOGY METHOD 11/17/2024 11:35 AM [facility] MCV 97.0 79.0 - 98.0 FL LAB HEMETOLOGY METHOD 11/17/2024 11:35 AM [facility] MCH 31.1 27.0 - 32.0 pcg LAB HEMETOLOGY METHOD 11/17/2024 11:35 AM [facility] MCHC 32.1 32.0 - 37.0 g/dL LAB HEMETOLOGY METHOD 11/17/2024 11:35 AM [facility] RDW 15.8(H) 11.0 - 15.0 % LAB HEMETOLOGY METHOD 11/17/2024 11:35 AM [facility] Platelets 114(L) 130 - 400 K/mcL LAB HEMETOLOGY METHOD 11/17/2024 11:35 AM [facility] MPV 11.9(H) 7.0 - 11.0 FL LAB HEMETOLOGY METHOD 11/17/2024 11:35 AM [facility] NRBC 0.0 <1.0 % LAB HEMETOLOGY METHOD 11/17/2024 11:35 AM [facility] NRBC Absolute 0.00 <0.10 K/mcL LAB HEMETOLOGY METHOD 11/17/2024 11:35 AM [facility] Neutrophils Relative 56.6 % LAB HEMETOLOGY METHOD 11/17/2024 11:35 AM [facility] Lymphocytes Relative 28.1 % LAB HEMETOLOGY METHOD 11/17/2024 11:35 AM [facility] Monocytes Relative 11.1 % LAB HEMETOLOGY METHOD 11/17/2024 11:35 AM [facility] Eosinophils Relative 3.3 % LAB HEMETOLOGY METHOD 11/17/2024 11:35 AM [facility] Basophils Relative 0.6 % LAB HEMETOLOGY METHOD 11/17/2024 11:35 AM EDT [facility] Immature Granulocytes Relative 0.3 % LAB HEMETOLOGY METHOD 11/17/2024 11:35 AM EDT [facility] Neutrophils Absolute 2.04 1.50 - 7.00 K/mcL LAB HEMETOLOGY METHOD 11/17/2024 11:35 AM EDT [facility] Lymphocytes Absolute 1.01 1.00 - 5.00 K/mcL LAB HEMETOLOGY METHOD 11/17/2024 11:35 AM EDT [facility] Monocytes Absolute 0.40 0.20 - 1.00 K/mcL LAB HEMETOLOGY METHOD 11/17/2024 11:35 AM EDT [facility] Eosinophils Absolute 0.12 0.00 - 0.50 K/mcL LAB HEMETOLOGY METHOD 11/17/2024 11:35 AM EDT [facility] Basophils Absolute 0.02 0.00 - 0.20 K/mcL LAB HEMETOLOGY METHOD 11/17/2024 11:35 AM EDT [facility] Immature Granulocytes Absolute 0.01 0.00 - 0.03 K/mcL LAB HEMETOLOGY METHOD 11/17/2024 11:35 AM EDT [facility] Blood Venous blood specimen / Unknown Venipuncture / Unknown 11/17/2024 9:36 AM EDT 11/17/2024 10:40 AM EDT us Riccardo Bang MD LAB BLOOD ORDERABLES Final R esult [facility] [address] [place] [address], * (ABNORMAL) Thyroid stimulating hormone with reflex to free t4 and free t3 (11/17/2024 9:36 AM EDT) TSH 4.01(H) 0.40 - 4.00 mcIU/mL LAB CHEMISTRY METHOD 11/17/2024 2:40 PM EDT [facility] Blood Venous blood specimen / Unknown Venipuncture / Unknown 11/17/2024 9:36 AM EDT 11/17/2024 10:40 AM EDT us Riccardo Bang MD LAB BLOOD ORDERABLES Final R esult Performing Organization Address City/[facility]/ZIP Co de Phone Number [facility] [address] [place] [address], [place] [phone] * (ABNORMAL) Vitamin B12 (11/17/2024 9:36 AM EDT) [facility] Vitamin B-12 210(L) 250 - 900 pcg/mL LAB CHEMISTRY METHOD 11/17/2024 1:16 PM EDT [facility] Blood Venous blood specimen / Unknown Venipuncture / Unknown 11/17/2024 9:36 AM EDT 11/17/2024 10:40 AM EDT us Riccardo Bang MD LAB BLOOD ORDERABLES Final R esult Performing Organization Address [facility]/RUST de Phone Number [facility] [address] [place] [address], [place] [phone] * (ABNORMAL) Hemoglobin A1c (11/17/2024 9:36 AM EDT) [facility] Hemoglobin A1C 7.0(H) <6.5 % LAB CHEMISTRY METHOD 11/17/2024 1:24 PM EDT [facility] Mean Bld Glu Estim. 154 mg/dL LAB CHEMISTRY METHOD 11/17/2024 1:24 PM EDT [facility] Blood Venous blood specimen / Unknown Venipuncture / Unknown 11/17/2024 9:36 AM EDT 11/17/2024 10:40 AM EDT Riccardo Bang MD LAB BLOOD ORDERABLES Final R esult Performing Organization Address City/[facility]/ZIP Co de Phone Number [facility] [address] [place] [address], [place] [phone] * Lipid panel with reflex to direct LDL (11/17/2024 9:36 AM EDT) Cholesterol 131 0 - 200 mg/dL LAB CHEMISTRY METHOD 11/17/2024 1:17 PM EDT [facility] Triglycerides 36 0 - 150 mg/dL LAB CHEMISTRY METHOD 11/17/2024 1:17 PM EDT [facility] HDL 91 >=40 mg/dL LAB CHEMISTRY METHOD 11/17/2024 1:17 PM EDT [facility] LDL Calculated 33 0 - 100 mg/dL LAB CHEMISTRY METHOD 11/17/2024 1:17 PM EDT [facility] Comment:Estimated LDL Calcul ated using equation: Total cholesterol - HDL cholesterol - (Triglycerides/5) VLDL Cholesterol Marlon 7.2 mg/dL LAB CHEMISTRY METHOD 11/17/2024 1:17 PM EDT [facility] Non HDL Chol. (LDL+VLDL) 40 <145 mg/dL LAB CHEMISTRY METHOD 11/17/2024 1:17 PM EDT [facility] Chol/HDL Ratio 1.4 0.0 - 4.4 LAB CHEMISTRY METHOD 11/17/2024 1:17 PM EDT [facility] Blood Venous blood specimen / Unknown Venipuncture / Unknown 11/17/2024 9:36 AM EDT 11/17/2024 10:40 AM EDT Riccardo Bang MD LAB BLOOD ORDERABLES Final R esult [facility] [address] [place] [address], [place] [phone] * (ABNORMAL) Comprehensive metabolic panel (11/17/2024 9:36 AM EDT) [facility] Signature Sodium 138 133 - 145 mmol/L LAB CHEMISTRY METHOD 11/17/2024 1:16 PM [facility] Potassium 4.2 3.5 - 5.5 mmol/L LAB CHEMISTRY METHOD 11/17/2024 1:16 PM [facility] Chloride 106 96 - 110 mmol/L LAB CHEMISTRY METHOD 11/17/2024 1:16 PM [facility] CO2 26 21 - 32 mmol/L LAB CHEMISTRY METHOD 11/17/2024 1:16 PM [facility] Anion Gap 6 3 - 11 LAB CHEMISTRY METHOD 11/17/2024 1:16 PM [facility] Glucose 118(H) 70 - 100 mg/dL LAB CHEMISTRY METHOD 11/17/2024 1:16 PM [facility] BUN 24 5 - 25 mg/dL LAB CHEMISTRY METHOD 11/17/2024 1:16 PM [facility] Creatinine 0.91 0.50 - 1.10 mg/dL LAB CHEMISTRY METHOD 11/17/2024 1:16 PM [facility] eGFR 66 >=60 mL/min/1. 73m2 LAB CHEMISTRY METHOD 11/17/2024 1:16 PM [facility] Comment:Calculation based on the Chronic Kidney Disease Epidemiology Collaboration (CKD-EPI) equation refit without adjustment for race. BUN/Creatinine Ratio 26.4 LAB CHEMISTRY METHOD 11/17/2024 1:16 PM [facility] Calcium 9.4 8.5 - 10.5 mg/dL LAB CHEMISTRY METHOD 11/17/2024 1:16 PM [facility] AST (SGOT) 21 10 - 42 unit/L LAB CHEMISTRY METHOD 11/17/2024 1:16 PM [facility] ALT (SGPT) 12 10 - 60 unit/L LAB CHEMISTRY METHOD 11/17/2024 1:16 PM EDT [facility] Alkaline Phosphatase 59 42 - 121 unit/L LAB CHEMISTRY METHOD 11/17/2024 1:16 PM EDT [facility] Total Protein 6.3 6.0 - 8.0 g/dL LAB CHEMISTRY METHOD 11/17/2024 1:16 PM EDT [facility] Albumin 3.8 3.2 - 5.0 g/dL LAB CHEMISTRY METHOD 11/17/2024 1:16 PM EDT [facility] Total Bilirubin 0.6 0.0 - 1.4 mg/dL LAB CHEMISTRY METHOD 11/17/2024 1:16 PM EDT [facility] Blood Venous blood specimen / Unknown Venipuncture / Unknown 11/17/2024 9:36 AM EDT 11/17/2024 10:40 AM EDT us Riccardo Bang MD LAB BLOOD ORDERABLES Final R esult [facility] [address] [place] [address], documented in this encounter Visit Diagnoses Diagnosis Type 2 diabetes mellitus without complications (CMS/HCC V24, CMS/HCC V28) Vitamin D deficiency, unspecified Anemia, unspecified Pure hypercholesterolemia, unspecified documented in this encounter Care Teams Advertising Copy Writer Relationship Specialty Start Date End Date Riccardo Bang MD [address] [place] [address] Dr Reyes Aguiar [place] PCP - General Internal Medicine 06/22/24 documented as of this encounter
--- OUTSIDE RECORDS SUMMARY | 2024-11-20 17:50 | XMS_ITS | Encounter Summary ---
Author Organization [employer] Address [address] [place] [address] Care Team Providers Care Tungsten Refiner Name Role Phone Riccardo Bang MD Primary Care Provider Encounter Details Date Type Department Care Team (Late st Contact Info) Description 06/23/2024 Lab Requisition [facility] - Main Lab [address] [facility] [place] [address] Riccardo Bang MD [address] [place] [address] Dysuria; Type 2 diabetes mellitus without complications (CMS/[facility] V24, CMS/[facility] V28) Social History Tobacco Use Types Packs/Day [...] 2 diabetes mellitus without complications (CMS/HCC V24, [facility] V28) CULTURE URINE Routine 06/22/2024 6:15 AM EDT Dysuria Type 2 diabetes mellitus without complications ([facility] V24, [facility] V28) documented in this encounter Results * Culture urine (06/22/2024 6:15 AM EDT) Pathologist [facility] Culture, Urine <10,000 cfu/mL Mixed bacterial ish 06/24/2024 10:29 AM EDT [facility] Urine Urine specimen from urethra / Unknown Non-blood Collection / Unknown 06/22/2024 6:15 AM EDT 06/23/2024 10:20 AM EDT us Riccardo Bang MD LAB MICROBIOLOGY - GENERAL O RDERABLES Final Result [facility] [address] [place] [address], [place] [phone] * (ABNORMAL) Urinalysis with reflex microscopic and culture (06/22/2024 6:15 AM EDT) [facility] Specific [place] Urine 1.010 1.003 - 1.030 LAB URINALYSIS - AUTOMATED METHOD 06/23/2024 10:21 AM [facility] pH, Urine 7.0 5.0 - 8.0 pH LAB URINALYSIS - AUTOMATED METHOD 06/23/2024 10:21 AM [facility] Leukocytes, Urine Moderate(A) Negative LAB URINALYSIS - AUTOMATED METHOD 06/23/2024 10:21 AM T [facility] Nitrite, Urine Negative Negative LAB URINALYSIS - AUTOMATED METHOD 06/23/2024 10:21 AM [facility] Protein, Urine Negative <=Trace mg/dL LAB URINALYSIS - AUTOMATED METHOD 06/23/2024 10:21 AM [facility] Glucose, Urine >=1000(A) Negative mg/dL LAB URINALYSIS - AUTOMATED METHOD 06/23/2024 10:21 AM [facility] Ketones, Urine Negative Negative mg/dL LAB URINALYSIS - AUTOMATED METHOD 06/23/2024 10:21 AM [facility] Urobilinogen , Urine 0.2 0.2 - 1.0 mg/dL LAB URINALYSIS - AUTOMATED METHOD 06/23/2024 10:21 AM [facility] Bilirubin, Urine Negative Negative LAB URINALYSIS - AUTOMATED METHOD 06/23/2024 10:21 AM [facility] Blood, Urine Negative Negative LAB URINALYSIS - AUTOMATED METHOD 06/23/2024 10:21 AM [facility] RBC, Urine 1.3 0 - 4 /HPF LAB URINALYSIS - AUTOMATED METHOD 06/23/2024 10:21 AM [facility] WBC, Urine 13.4(H) 0 - 4 /HPF LAB URINALYSIS - AUTOMATED METHOD 06/23/2024 10:21 AM [facility] Squamous Epithelial, Urine 30 0 - 60 /LPF LAB URINALYSIS - AUTOMATED METHOD 06/23/2024 10:21 AM [facility] Bacteria, Urine Negative Negative /HPF LAB URINALYSIS - AUTOMATED METHOD 06/23/2024 10:21 AM [facility] Hyaline Casts, Urine 0.0 0 - 3 /LPF LAB URINALYSIS - AUTOMATED METHOD 06/23/2024 10:21 AM [facility] Urine Urine specimen from urethra / Unknown Non-blood Collection / Unknown 06/22/2024 6:15 AM EDT 06/23/2024 9:33 AM EDT us Riccardo Bang MD LAB URINE ORDERABLES Final R esult [facility] [address] [place] [address], [place] [phone] * Microalbumin creatinine urine ratio (06/22/2024 6:15 AM EDT) Creatinine, Urine 20.0 mg/dL LAB CHEMISTRY METHOD 06/23/2024 10:50 AM EDT [facility] Microalb, Ur <5.0 0.0 - 29.0 mg/L LAB CHEMISTRY METHOD 06/23/2024 10:50 AM EDT [facility] Microalb/Creat Ratio <25 <30 mg/g creat LAB CHEMISTRY METHOD 06/23/2024 10:50 AM EDT [facility] Urine Urine specimen from urethra / Unknown Non-blood Collection / Unknown 06/22/2024 6:15 AM EDT 06/23/2024 9:33 AM EDT Riccardo Bang MD LAB URINE ORDERABLES Final R esult Performing Organization Address City/[facility]/ZIP Co de Phone Number [facility] [address] [place] [address], [place] [phone] * Man urine culture tube (06/22/2024 6:15 AM EDT) Extra Tube Hold for add-ons. 06/23/2024 11:01 AM EDT [facility] Comment:Auto resulted. Urine Urine specimen from urethra / Unknown Non-blood Collection / Unknown 06/22/2024 6:15 AM EDT 06/23/2024 9:33 AM EDT Riccardo Bang MD LAB URINE ORDERABLES Final R esult [facility] [address] [place] [address], [place] [phone] documented in this encounter Visit Diagnoses Diagnosis Dysuria Type 2 diabetes mellitus without complications (CMS/[facility] V24, CMS/[facility] V28) documented in this encounter Care Teams Tungsten Refiner Relationship Specialty Start Date End Date Riccardo Bang MD [address] [place] [address] Dr Reyes [address] SAUL Aguiar PCP - General Internal Medicine 06/22/24 documented as of this encounter
--- OUTSIDE RECORDS SUMMARY | 2024-11-20 17:50 | XMS_ITS | Encounter Summary ---
Author Organization [employer] Address [address] [place] [address] Care Team Providers Care Site Interpreter Name Role Phone Riccardo Bang MD Primary Care Provider [phone] Encounter Details Date Type Department Care Team (Latest Contact Info) Description 06/22/2024 Lab Requisition [facility] - Main Lab [address] [place] [address] Noris Phillips MD [facility] [address] [place] [address] Type 2 diabetes mellitus without complications (CMS/HCC [...] EDT Type 2 diabetes mellitus without complications ([facility] V24, [facility] V28) Essential (primary) hypertension Hyperlipidemia, unspecified Vitamin D deficiency, unspecified THYROID STIMULATING HORMONE Routine 06/23/2024 7:30 AM EDT Type 2 diabetes mellitus without complications ([facility] V24, [facility] V28) Essential (primary) hypertension Hyperlipidemia, unspecified Vitamin D deficiency, unspecified THYROXINE FREE Routine 06/23/2024 7:30 AM EDT Type 2 diabetes mellitus without complications ([facility] V24, [facility] V28) Essential (primary) hypertension Hyperlipidemia, unspecified Vitamin D deficiency, unspecified HEMOGLOBIN A1C Routine 06/23/2024 7:30 AM EDT Type 2 diabetes mellitus without complications ([facility] V24, [facility] V28) Essential (primary) hypertension Hyperlipidemia, unspecified Vitamin D deficiency, unspecified COMPREHENSIVE METABOLIC PANEL Routine 06/23/2024 7:30 AM EDT Type 2 diabetes mellitus without complications ([facility] V24, [facility] V28) Essential (primary) hypertension Hyperlipidemia, unspecified Vitamin D deficiency, unspecified documented in this encounter Results * (ABNORMAL) CBC auto differential (06/23/2024 7:30 AM EDT) [facility] Signature WBC 3.5(L) 4.8 - 10.8 K/mcL LAB HEMETOLOGY METHOD 06/23/2024 10:21 AM EDT [facility] RBC 3.30(L) 3.80 - 4.80 M/mcL LAB HEMETOLOGY METHOD 06/23/2024 10:21 AM T [facility] Hemoglobin 10.1(L) 11.5 - 16.0 g/dL LAB HEMETOLOGY METHOD 06/23/2024 10:21 AM [facility] Hematocrit 31.5(L) 35.0 - 47.0 % LAB HEMETOLOGY METHOD 06/23/2024 10:21 AM [facility] MCV 96.9 79.0 - 98.0 FL LAB HEMETOLOGY METHOD 06/23/2024 10:21 AM [facility] MCH 31.1 27.0 - 32.0 pcg LAB HEMETOLOGY METHOD 06/23/2024 10:21 AM [facility] MCHC 32.1 32.0 - 37.0 g/dL LAB HEMETOLOGY METHOD 06/23/2024 10:21 AM [facility] RDW 14.8 11.0 - 15.0 % LAB HEMETOLOGY METHOD 06/23/2024 10:21 AM [facility] Platelets 118(L) 130 - 400 K/mcL LAB HEMETOLOGY METHOD 06/23/2024 10:21 AM [facility] MPV 11.7(H) 7.0 - 11.0 FL LAB HEMETOLOGY METHOD 06/23/2024 10:21 AM [facility] NRBC 0.0 <1.0 % LAB HEMETOLOGY METHOD 06/23/2024 10:21 AM [facility] NRBC Absolute 0.00 <0.10 K/mcL LAB HEMETOLOGY METHOD 06/23/2024 10:21 AM [facility] Neutrophils Relative 49.1 % LAB HEMETOLOGY METHOD 06/23/2024 10:21 AM [facility] Lymphocytes Relative 32.2 % LAB HEMETOLOGY METHOD 06/23/2024 10:21 AM [facility] Monocytes Relative 11.9 % LAB HEMETOLOGY METHOD 06/23/2024 10:21 AM [facility] Eosinophils Relative 5.9 % LAB HEMETOLOGY METHOD 06/23/2024 10:21 AM EDT [facility] Basophils Relative 0.6 % LAB HEMETOLOGY METHOD 06/23/2024 10:21 AM EDT [facility] Immature Granulocytes Relative 0.3 % LAB HEMETOLOGY METHOD 06/23/2024 10:21 AM EDT [facility] Neutrophils Absolute 1.74 1.50 - 7.00 K/mcL LAB HEMETOLOGY METHOD 06/23/2024 10:21 AM EDT [facility] Lymphocytes Absolute 1.14 1.00 - 5.00 K/mcL LAB HEMETOLOGY METHOD 06/23/2024 10:21 AM EDT [facility] Monocytes Absolute 0.42 0.20 - 1.00 K/mcL LAB HEMETOLOGY METHOD 06/23/2024 10:21 AM EDT [facility] Eosinophils Absolute 0.21 0.00 - 0.50 K/mcL LAB HEMETOLOGY METHOD 06/23/2024 10:21 AM EDT [facility] Basophils Absolute 0.02 0.00 - 0.20 K/mcL LAB HEMETOLOGY METHOD 06/23/2024 10:21 AM EDT [facility] Immature Granulocytes Absolute 0.01 0.00 - 0.03 K/mcL LAB HEMETOLOGY METHOD 06/23/2024 10:21 AM EDT [facility] Blood Venous blood specimen / Unknown Venipuncture / Unknown 06/23/2024 7:30 AM EDT 06/23/2024 10:07 AM EDT us Noris Phillips MD LAB BLOOD ORDERABLES Final R esult [facility] [address] [place] [address], * Vitamin D 25 hydroxy (06/23/2024 7:30 AM EDT) Vit D, 25-Hydroxy 43.6 30.0 - 80.0 ng/mL LAB CHEMISTRY METHOD 06/23/2024 11:24 AM EDT [facility] Blood Venous blood specimen / Unknown Venipuncture / Unknown 06/23/2024 7:30 AM EDT 06/23/2024 10:07 AM EDT Noris Phillips MD LAB BLOOD ORDERABLES Final R esult Performing Organization Address [facility]/ZIP Co de Phone Number [facility] [address] [place] [address], [place] [phone] * Thyroxine free (06/23/2024 7:30 AM EDT) Free T4 0.99 0.70 - 1.80 ng/dL LAB CHEMISTRY METHOD 06/23/2024 11:24 AM EDT [facility] Blood Venous blood specimen / Unknown Venipuncture / Unknown 06/23/2024 7:30 AM EDT 06/23/2024 10:07 AM EDT us Noris Phillips MD LAB BLOOD ORDERABLES Final R esult Performing Organization Address City/[facility]/ZIP Co de Phone Number [facility] [address] [place] [address], [place] [phone] * (ABNORMAL) Thyroid stimulating hormone (06/23/2024 7:30 AM EDT) TSH 4.95(H) 0.40 - 4.00 mcIU/mL LAB CHEMISTRY METHOD 06/23/2024 11:24 AM EDT [facility] Blood Venous blood specimen / Unknown Venipuncture / Unknown 06/23/2024 7:30 AM EDT 06/23/2024 10:07 AM EDT Noris Phillips MD LAB BLOOD ORDERABLES Final R esult [facility] [address] [place] [address], [place] [phone] * (ABNORMAL) Hemoglobin A1c (06/23/2024 7:30 AM EDT) Hemoglobin A1C 7.4(H) <6.5 % LAB CHEMISTRY METHOD 06/23/2024 2:05 PM EDT [facility] Mean Bld Glu Estim. 166 mg/dL LAB CHEMISTRY METHOD 06/23/2024 2:05 PM EDT [facility] Blood Venous blood specimen / Unknown Venipuncture / Unknown 06/23/2024 7:30 AM EDT 06/23/2024 10:07 AM EDT us Noris Phillips MD LAB BLOOD ORDERABLES Final R esult [facility] [address] [place] [address], [place] [phone] * Lipid panel with reflex to direct LDL (06/23/2024 7:30 AM EDT) Cholesterol 135 0 - 200 mg/dL LAB CHEMISTRY METHOD 06/23/2024 10:43 AM EDT [facility] Triglycerides 49 0 - 150 mg/dL LAB CHEMISTRY METHOD 06/23/2024 10:43 AM EDT [facility] HDL 80 >=40 mg/dL LAB CHEMISTRY METHOD 06/23/2024 10:43 AM EDT [facility] LDL Calculated 45 0 - 100 mg/dL LAB CHEMISTRY METHOD 06/23/2024 10:43 AM EDT [facility] VLDL Cholesterol Marlon 9.8 mg/dL LAB CHEMISTRY METHOD 06/23/2024 10:43 AM EDT [facility] Non HDL Chol. (LDL+VLDL) 55 <145 mg/dL LAB CHEMISTRY METHOD 06/23/2024 10:43 AM [facility] Chol/HDL Ratio 1.7 0.0 - 4.4 LAB CHEMISTRY METHOD 06/23/2024 10:43 AM [facility] Blood Venous blood specimen / Unknown Venipuncture / Unknown 06/23/2024 7:30 AM EDT 06/23/2024 10:07 AM EDT us Noris Phillips MD LAB BLOOD ORDERABLES Final R esult [facility] [address] [place] [address], [place] [phone] * (ABNORMAL) Comprehensive metabolic panel (06/23/2024 7:30 AM EDT) Sodium 140 133 - 145 mmol/L LAB CHEMISTRY METHOD 06/23/2024 10:42 AM [facility] Potassium 4.0 3.5 - 5.5 mmol/L LAB CHEMISTRY METHOD 06/23/2024 10:42 AM [facility] Chloride 108 96 - 110 mmol/L LAB CHEMISTRY METHOD 06/23/2024 10:42 AM [facility] CO2 26 21 - 32 mmol/L LAB CHEMISTRY METHOD 06/23/2024 10:42 AM [facility] Anion Gap 6 3 - 11 LAB CHEMISTRY METHOD 06/23/2024 10:42 AM [facility] Glucose 111(H) 70 - 100 mg/dL LAB CHEMISTRY METHOD 06/23/2024 10:42 AM [facility] BUN 24 5 - 25 mg/dL LAB CHEMISTRY METHOD 06/23/2024 10:42 AM [facility] Creatinine 0.93 0.50 - 1.10 mg/dL LAB CHEMISTRY METHOD 06/23/2024 10:42 AM [facility] eGFR 64 >=60 mL/min/1. 73m2 LAB CHEMISTRY METHOD 06/23/2024 10:42 AM [facility] Comment:Calculation based on the Chronic Kidney Disease Epidemiology Collaboration (CKD-EPI) equation refit without adjustment for race. BUN/Creatinine Ratio 25.8 LAB CHEMISTRY METHOD 06/23/2024 10:42 AM [facility] Calcium 9.4 8.5 - 10.5 mg/dL LAB CHEMISTRY METHOD 06/23/2024 10:42 AM [facility] AST (SGOT) 20 10 - 42 unit/L LAB CHEMISTRY METHOD 06/23/2024 10:42 AM [facility] ALT (SGPT) 13 10 - 60 unit/L LAB CHEMISTRY METHOD 06/23/2024 10:42 AM [facility] Alkaline Phosphatase 59 42 - 121 unit/L LAB CHEMISTRY METHOD 06/23/2024 10:42 AM [facility] Total Protein 6.5 6.0 - 8.0 g/dL LAB CHEMISTRY METHOD 06/23/2024 10:42 AM [facility] Albumin 3.6 3.2 - 5.0 g/dL LAB CHEMISTRY METHOD 06/23/2024 10:42 AM [facility] Total Bilirubin 0.7 0.0 - 1.4 mg/dL LAB CHEMISTRY METHOD 06/23/2024 10:42 AM [facility] Blood Venous blood specimen / Unknown Venipuncture / Unknown 06/23/2024 7:30 AM EDT 06/23/2024 10:07 AM EDT us Noris Phillips MD LAB BLOOD ORDERABLES Final R esult [facility] [address] [place] [address], documented in this encounter Visit Diagnoses Diagnosis Type 2 diabetes mellitus without complications (CMS/[facility] V24, [facility] V28) Essential (primary) hypertension Unspecified essential hypertension Hyperlipidemia, unspecified Vitamin D deficiency, unspecified documented in this encounter Care Teams Site Interpreter Relationship Specialty Start Date End Date Riccardo Bang MD [address] [place] [address] [address] [place] PCP - General Internal Medicine 06/22/24 documented as of this encounter
--- OUTSIDE RECORDS SUMMARY | 2024-11-20 17:50 | XMS_ITS | Clinical Summary ---
Author Organization [address] [facility] Address [address] [place] [address] Phone Care Team Providers Care Administrative Supervisor Name Role Phone Riccardo Bang MD Primary Care Provider Encounters Date Type Department Care Team Description 11/17/2024 Lab Requisition [facility] [address] [place] [address] Riccardo Bang MD Dysuria 11/17/2024 Lab Requisition [facility] Lab [address] [place] [address] Riccardo Bang MD Type 2 diabetes mellitus without complications (CMS/HCC V24, CMS/HCC V28); Vitamin D deficiency, unspecified; Anemia, unspecified; Pure hypercholesterolemia, unspecified from Last 3 Months Social History Tobacco [...] (1 - Tdap) 1968 Pneumococcal Vaccine: 50+ Years (1 of 2 - PCV) 1968 Zoster Vaccines (1 of 2) 1999 Depression Screening 03/11/2024 RSV Immunization Adult Patients (1 - 1-dose 75+ series) 2024 Colorectal Cancer Screening: Colonoscopy 04/28/2024 Falls Risk Assessment 04/28/2024 Hepatitis C Screening 04/28/2024 Medicare Annual Wellness Visit 04/28/2024 Osteoporosis Screening (Bone Density Screening) 04/28/2024 Social Influencers of Health Screening 04/28/2024 COVID-19 Vaccine ( - 2023-2 5 season) 2024 Influenza Vaccine (#1) 2024 Diabetes: Blood Sugar Contro l Test (HGBA1C) 05/17/2025 11/17/2024, 06/23/2024 Diabetes: Annual Urine Albumin-Creatinine Ratio (uACR) 11/17/2025 11/17/2024, 06/22/2024 Diabetes: Annual GFR (Glomerular Filtration Rate) 11/17/2025 11/17/2024, 06/23/2024 Hypertension/CHF/CAD Annual BMP Blood Test 11/17/2025 11/17/2024, 06/23/2024 Cholesterol Screening (Lipid Panel) 11/17/2029 11/17/2024, 06/23/2024 HIB Vaccines Aged Out No longer [...] to complete this topic RSV Immunization Patients Under 20 months Aged Out No longer eligible b ased on patient's age to complete this topic Varicella Vaccines Aged Out No longer eligible based on patient's age to complete this topic Procedures Procedure Name Priority Date/Time Associated Diagnosis Comments TRIIODOTHYRONINE FREE Routine 11/17/2024 9:36 AM EDT Type 2 diabetes mellitus without complications ([facility] V24, [facility] V28) Vitamin D deficiency, unspecified Anemia, unspecified Pure hypercholesterolemia , unspecified FREE THYROXINE WITH REFLEX TO FREE TRIIODOTHYRONINE Routine 11/17/2024 9:36 AM EDT Type 2 diabetes mellitus without complications ([facility] V24, [facility] V28) Vitamin D deficiency, unspecified Anemia, unspecified Pure hypercholesterolemia , unspecified CBC WITH AUTO DIFFERENTIAL Routine 11/17/2024 9:36 AM EDT Type 2 diabetes mellitus without complications ([facility] V24, [facility] V28) Vitamin D deficiency, unspecified Anemia, unspecified Pure hypercholesterolemia , unspecified THYROID STIMULATING HORMONE WITH REFLEX TO FREE T4 AND FREE T3 Routine 11/17/2024 9:36 AM EDT Type 2 diabetes mellitus without complications ([facility] V24, [facility] V28) Vitamin D deficiency, unspecified Anemia, unspecified Pure hypercholesterolemia , unspecified VITAMIN B12 Routine 11/17/2024 9:36 AM EDT Type 2 diabetes mellitus without complications ([facility] V24, [facility] V28) Vitamin D deficiency, unspecified Anemia, unspecified Pure hypercholesterolemia , unspecified HEMOGLOBIN A1C Routine 11/17/2024 9:36 AM EDT Type 2 diabetes mellitus without complications ([facility] V24, [facility] V28) Vitamin D deficiency, unspecified Anemia, unspecified Pure hypercholesterolemia , unspecified LIPID PANEL WITH REFLEX TO DIRECT LDL Routine 11/17/2024 9:36 AM EDT Type 2 diabetes mellitus without complications ([facility] V24, [facility] V28) Vitamin D deficiency, unspecified Anemia, unspecified Pure hypercholesterolemia , unspecified COMPREHENSIVE METABOLIC PANEL Routine 11/17/2024 9:36 AM EDT Type 2 diabetes mellitus without complications ([facility] V24, [facility] V28) Vitamin D deficiency, unspecified Anemia, unspecified Pure hypercholesterolemia , unspecified CBC AND DIFFERENTIAL Routine 11/17/2024 9:36 AM EDT Type 2 diabetes mellitus without complications ([facility] V24, [facility] V28) Vitamin D deficiency, unspecified Anemia, unspecified Pure hypercholesterolemia , unspecified URINALYSIS WITH REFLEX MICROSCOPIC AND CULTURE Routine 11/17/2024 6:30 AM EDT Dysuria MICROALBUMIN CREATININE URINE RATIO Routine 11/17/2024 6:30 AM EDT Dysuria URINALYSIS WITH REFLEX MICROSCOPIC AND CULTURE Routine 11/17/2024 6:30 AM EDT Dysuria CULTURE URINE Routine 11/17/2024 6:30 AM EDT Dysuria from Last 3 Months Results * (ABNORMAL) Thyroid stimulating hormone with reflex to free t4 and free t3 (11/17/2024 9:36 AM EDT) TSH 4.01(H) 0.40 - 4.00 mcIU/mL LAB CHEMISTRY METHOD 11/17/2024 2:40 PM EDT [facility] Blood Venous blood specimen / Unknown Venipuncture / Unknown 11/17/2024 9:36 AM EDT 11/17/2024 10:40 AM EDT Riccardo Bang MD LAB BLOOD ORDERABLES Final R esult [facility] [address] [place] [address], [place] [phone] * Free thyroxine with reflex to free triiodothyronine (11/17/2024 9:36 AM EDT) Free T4 0.96 0.70 - 1.80 ng/dL LAB CHEMISTRY METHOD 11/17/2024 3:16 PM EDT [facility] Blood Venous blood specimen / Unknown Venipuncture / Unknown 11/17/2024 9:36 AM EDT 11/17/2024 10:40 AM EDT Riccardo Bang MD LAB BLOOD ORDERABLES Final R esult [facility] [address] [place] [address], [place] [phone] * Lipid panel with reflex to direct LDL (11/17/2024 9:36 AM EDT) Cholesterol 131 0 - 200 mg/dL LAB CHEMISTRY METHOD 11/17/2024 1:17 PM EDT [facility] Triglycerides 36 0 - 150 mg/dL LAB CHEMISTRY METHOD 11/17/2024 1:17 PM EDT [facility] HDL 91 >=40 mg/dL LAB CHEMISTRY METHOD 11/17/2024 1:17 PM EDT [facility] LDL Calculated 33 0 - 100 mg/dL LAB CHEMISTRY METHOD 11/17/2024 1:17 PM EDT [facility] Comment:Estimated LDL Calcul ated using equation: Total cholesterol - HDL cholesterol - (Triglycerides/5) VLDL Cholesterol Marlon 7.2 mg/dL LAB CHEMISTRY METHOD 11/17/2024 1:17 PM EDT [facility] Non HDL Chol. (LDL+VLDL) 40 <145 mg/dL LAB CHEMISTRY METHOD 11/17/2024 1:17 PM EDT [facility] Chol/HDL Ratio 1.4 0.0 - 4.4 LAB CHEMISTRY METHOD 11/17/2024 1:17 PM T [facility] Blood Venous blood specimen / Unknown Venipuncture / Unknown 11/17/2024 9:36 AM EDT 11/17/2024 10:40 AM EDT Riccardo Bang MD LAB BLOOD ORDERABLES Final R esult [facility] [address] [place] [address], * (ABNORMAL) CBC auto differential (11/17/2024 9:36 AM EDT) WBC 3.6(L) 4.8 - 10.8 K/mcL LAB HEMETOLOGY METHOD 11/17/2024 11:35 AM [facility] RBC 3.30(L) 3.80 - 4.80 M/mcL LAB HEMETOLOGY METHOD 11/17/2024 11:35 AM [facility] Hemoglobin 10.4(L) 11.5 - 16.0 g/dL LAB HEMETOLOGY METHOD 11/17/2024 11:35 AM [facility] Hematocrit 32.4(L) 35.0 - 47.0 % LAB HEMETOLOGY METHOD 11/17/2024 11:35 AM [facility] MCV 97.0 79.0 - 98.0 FL LAB HEMETOLOGY METHOD 11/17/2024 11:35 AM [facility] MCH 31.1 27.0 - 32.0 pcg LAB HEMETOLOGY METHOD 11/17/2024 11:35 AM [facility] MCHC 32.1 32.0 - 37.0 g/dL LAB HEMETOLOGY METHOD 11/17/2024 11:35 AM [facility] RDW 15.8(H) 11.0 - 15.0 % LAB HEMETOLOGY METHOD 11/17/2024 11:35 AM [facility] Platelets 114(L) 130 - 400 K/mcL LAB HEMETOLOGY METHOD 11/17/2024 11:35 AM [facility] MPV 11.9(H) 7.0 - 11.0 FL LAB HEMETOLOGY METHOD 11/17/2024 11:35 AM [facility] NRBC 0.0 <1.0 % LAB HEMETOLOGY METHOD 11/17/2024 11:35 AM [facility] NRBC Absolute 0.00 <0.10 K/mcL LAB HEMETOLOGY METHOD 11/17/2024 11:35 AM [facility] Neutrophils Relative 56.6 % LAB HEMETOLOGY METHOD 11/17/2024 11:35 AM [facility] Lymphocytes Relative 28.1 % LAB HEMETOLOGY METHOD 11/17/2024 11:35 AM [facility] Monocytes Relative 11.1 % LAB HEMETOLOGY METHOD 11/17/2024 11:35 AM [facility] Eosinophils Relative 3.3 % LAB HEMETOLOGY METHOD 11/17/2024 11:35 AM [facility] Basophils Relative 0.6 % LAB HEMETOLOGY METHOD 11/17/2024 11:35 AM [facility] Immature Granulocytes Relative 0.3 % LAB HEMETOLOGY METHOD 11/17/2024 11:35 AM [facility] Neutrophils Absolute 2.04 1.50 - 7.00 K/mcL LAB HEMETOLOGY METHOD 11/17/2024 11:35 AM [facility] Lymphocytes Absolute 1.01 1.00 - 5.00 K/mcL LAB HEMETOLOGY METHOD 11/17/2024 11:35 AM [facility] Monocytes Absolute 0.40 0.20 - 1.00 K/mcL LAB HEMETOLOGY METHOD 11/17/2024 11:35 AM [facility] Eosinophils Absolute 0.12 0.00 - 0.50 K/mcL LAB HEMETOLOGY METHOD 11/17/2024 11:35 AM [facility] Basophils Absolute 0.02 0.00 - 0.20 K/mcL LAB HEMETOLOGY METHOD 11/17/2024 11:35 AM [facility] Immature Granulocytes Absolute 0.01 0.00 - 0.03 K/mcL LAB HEMETOLOGY METHOD 11/17/2024 11:35 AM [facility] Blood Venous blood specimen / Unknown Venipuncture / Unknown 11/17/2024 9:36 AM EDT 11/17/2024 10:40 AM EDT Riccardo Bang MD LAB BLOOD ORDERABLES Final R esult Performing Organization Address City/[facility]/ZIP Co de Phone Number [facility] [address] [place] [address], [place] [phone] * (ABNORMAL) Triiodothyronine free (11/17/2024 9:36 AM EDT) Pathologist [facility] T3, Free 216(L) 230 - 420 pcg/dL LAB CHEMISTRY METHOD 11/17/2024 5:11 PM EDT [facility] Blood Venous blood specimen / Unknown Venipuncture / Unknown 11/17/2024 9:36 AM EDT 11/17/2024 10:40 AM EDT us Riccardo Bang MD LAB BLOOD ORDERABLES Final R esult Performing Organization Address [facility]/ZIP Co de Phone Number [facility] [address] [place] [address], [place] [phone] * (ABNORMAL) Hemoglobin A1c (11/17/2024 9:36 AM EDT) [facility] Hemoglobin A1C 7.0(H) <6.5 % LAB CHEMISTRY METHOD 11/17/2024 1:24 PM EDT [facility] Mean Bld Glu Estim. 154 mg/dL LAB CHEMISTRY METHOD 11/17/2024 1:24 PM EDT [facility] Blood Venous blood specimen / Unknown Venipuncture / Unknown 11/17/2024 9:36 AM EDT 11/17/2024 10:40 AM EDT us Riccardo Bang MD LAB BLOOD ORDERABLES Final R esult Performing Organization Address City/[facility]/ZIP Co de Phone Number [facility] [address] [place] [address], [place] [phone] * (ABNORMAL) Vitamin B12 (11/17/2024 9:36 AM EDT) Pathologist [facility] Vitamin B-12 210(L) 250 - 900 pcg/mL LAB CHEMISTRY METHOD 11/17/2024 1:16 PM [facility] Blood Venous blood specimen / Unknown Venipuncture / Unknown 11/17/2024 9:36 AM EDT 11/17/2024 10:40 AM EDT us Riccardo Bang MD LAB BLOOD ORDERABLES Final R esult [facility] [address] [place] [address], * (ABNORMAL) Comprehensive metabolic panel (11/17/2024 9:36 AM EDT) [facility] Sodium 138 133 - 145 mmol/L LAB CHEMISTRY METHOD 11/17/2024 1:16 PM [facility] Potassium 4.2 3.5 - 5.5 mmol/L LAB CHEMISTRY METHOD 11/17/2024 1:16 PM [facility] Chloride 106 96 - 110 mmol/L LAB CHEMISTRY METHOD 11/17/2024 1:16 PM [facility] CO2 26 21 - 32 mmol/L LAB CHEMISTRY METHOD 11/17/2024 1:16 PM [facility] Anion Gap 6 3 - 11 LAB CHEMISTRY METHOD 11/17/2024 1:16 PM [facility] Glucose 118(H) 70 - 100 mg/dL LAB CHEMISTRY METHOD 11/17/2024 1:16 PM [facility] BUN 24 5 - 25 mg/dL LAB CHEMISTRY METHOD 11/17/2024 1:16 PM [facility] Creatinine 0.91 0.50 - 1.10 mg/dL LAB CHEMISTRY METHOD 11/17/2024 1:16 PM [facility] eGFR 66 >=60 mL/min/1. 73m2 LAB CHEMISTRY METHOD 11/17/2024 1:16 PM EDT [facility] Comment:Calculation based on the Chronic Kidney Disease Epidemiology Collaboration (CKD-EPI) equation refit without adjustment for race. BUN/Creatinine Ratio 26.4 LAB CHEMISTRY METHOD 11/17/2024 1:16 PM EDT [facility] Calcium 9.4 8.5 - 10.5 mg/dL LAB CHEMISTRY METHOD 11/17/2024 1:16 PM EDT [facility] AST (SGOT) 21 10 - 42 unit/L LAB CHEMISTRY METHOD 11/17/2024 1:16 PM [facility] ALT (SGPT) 12 10 - 60 unit/L LAB CHEMISTRY METHOD 11/17/2024 1:16 PM [facility] Alkaline Phosphatase 59 42 - 121 unit/L LAB CHEMISTRY METHOD 11/17/2024 1:16 PM T [facility] Total Protein 6.3 6.0 - 8.0 g/dL LAB CHEMISTRY METHOD 11/17/2024 1:16 PM [facility] Albumin 3.8 3.2 - 5.0 g/dL LAB CHEMISTRY METHOD 11/17/2024 1:16 PM [facility] Total Bilirubin 0.6 0.0 - 1.4 mg/dL LAB CHEMISTRY METHOD 11/17/2024 1:16 PM T [facility] Blood Venous blood specimen / Unknown Venipuncture / Unknown 11/17/2024 9:36 AM EDT 11/17/2024 10:40 AM EDT us Riccardo Bang MD LAB BLOOD ORDERABLES Final R esult [facility] [address] [place] [address], [place] [phone] * (ABNORMAL) Urinalysis with reflex microscopic and culture (11/17/2024 6:30 AM ED) Specific [place] Urine 1.013 1.003 - 1.030 LAB URINALYSIS - AUTOMATED METHOD 11/17/2024 11:35 AM [facility] pH, Urine 6.5 5.0 - 8.0 pH LAB URINALYSIS - AUTOMATED METHOD 11/17/2024 11:35 AM [facility] Leukocytes, Urine Small(A) Negative LAB URINALYSIS - AUTOMATED METHOD 11/17/2024 11:35 AM [facility] Nitrite, Urine Negative Negative LAB URINALYSIS - AUTOMATED METHOD 11/17/2024 11:35 AM [facility] Protein, Urine Negative <=Trace mg/dL LAB URINALYSIS - AUTOMATED METHOD 11/17/2024 11:35 AM [facility] Glucose, Urine >=1000(A) Negative mg/dL LAB URINALYSIS - AUTOMATED METHOD 11/17/2024 11:35 AM [facility] Ketones, Urine Negative Negative mg/dL LAB URINALYSIS - AUTOMATED METHOD 11/17/2024 11:35 AM [facility] Urobilinogen , Urine 0.2 0.2 - 1.0 mg/dL LAB URINALYSIS - AUTOMATED METHOD 11/17/2024 11:35 AM [facility] Bilirubin, Urine Negative Negative LAB URINALYSIS - AUTOMATED METHOD 11/17/2024 11:35 AM [facility] Blood, Urine Negative Negative LAB URINALYSIS - AUTOMATED METHOD 11/17/2024 11:35 AM [facility] RBC, Urine 0.7 0 - 4 /HPF LAB URINALYSIS - AUTOMATED METHOD 11/17/2024 11:35 AM [facility] WBC, Urine 7.4(H) 0 - 4 /HPF LAB URINALYSIS - AUTOMATED METHOD 11/17/2024 11:35 AM EDT [facility] Squamous Epithelial, Urine 17 0 - 60 /LPF LAB URINALYSIS - AUTOMATED METHOD 11/17/2024 11:35 AM EDT [facility] Bacteria, Urine Negative Negative /HPF LAB URINALYSIS - AUTOMATED METHOD 11/17/2024 11:35 AM EDT [facility] Hyaline Casts, Urine 0.0 0 - 3 /LPF LAB URINALYSIS - AUTOMATED METHOD 11/17/2024 11:35 AM EDT [facility] Urine Urine specimen from urethra / Unknown Non-blood Collection / Unknown 11/17/2024 6:30 AM EDT 11/17/2024 10:59 AM EDT us Riccardo Bang MD LAB URINE ORDERABLES Final R esult Performing Organization Address City/[facility]/ZIP Co de Phone Number [facility] [address] [place] [address], * Microalbumin creatinine urine ratio (11/17/2024 6:30 AM EDT) Creatinine, Urine 24.0 mg/dL LAB CHEMISTRY METHOD 11/17/2024 1:04 PM EDT [facility] Microalb, Ur 5.5 0.0 - 29.0 mg/L LAB CHEMISTRY METHOD 11/17/2024 1:04 PM EDT [facility] Microalb/Creat Ratio 23 <30 mg/g creat LAB CHEMISTRY METHOD 11/17/2024 1:04 PM EDT [facility] Urine Urine specimen from urethra / Unknown Non-blood Collection / Unknown 11/17/2024 6:30 AM EDT 11/17/2024 10:59 AM EDT us Riccardo Bang MD LAB URINE ORDERABLES Final R esult Performing Organization Address City/[facility]/ZIP Co de Phone Number [facility] [address] [place] [address], [place] [phone] * Culture urine (11/17/2024 6:30 AM EDT) Culture, Urine No growth 11/18/2024 9:15 AM EDT [facility] Urine Urine specimen from urethra / Unknown Non-blood Collection / Unknown 11/17/2024 6:30 AM EDT 11/17/2024 11:35 AM EDT us Riccardo Bang MD LAB MICROBIOLOGY - GENERAL O RDERABLES Final Result [facility] [address] [place] [address], [place] [phone] from Last 3 Months Insurance MEDICARE MEDICAID - [place] Care Teams Administrative Supervisor Relationship Specialty Start Date End Date Riccardo Bang MD [address] [place] [address] [place] [address] PCP - General Internal Medicine 06/22/24
--- OUTSIDE RECORDS SUMMARY | 2024-11-20 17:50 | XMS_ITS | Encounter Summary ---
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 Repairer Name Role Phone Riccardo Bang MD Primary Care Provider Encounter Details Date Type Department Care Team (Late st Contact Info) Description 11/17/2024 Lab Requisition [facility] [address] [place] [address] Riccardo Bang MD [address] [place] [address] Dysuria Social History Tobacco Use Types Packs/Day Years [...] URINE Routine 11/17/2024 6:30 AM EDT Dysuria documented in this encounter Results * Culture urine (11/17/2024 6:30 AM EDT) Culture, Urine No growth 11/18/2024 9:15 AM EDT [facility] Urine Urine specimen from urethra / Unknown Non-blood Collection / Unknown 11/17/2024 6:30 AM EDT 11/17/2024 11:35 AM EDT us Riccardo Bang MD LAB MICROBIOLOGY - GENERAL O RDERABLES Final Result [facility] [address] [place] [address], [place] [phone] * (ABNORMAL) Urinalysis with reflex microscopic and culture (11/17/2024 6:30 AM EDT) Specific [place] Urine 1.013 1.003 - 1.030 LAB URINALYSIS - AUTOMATED METHOD 11/17/2024 11:35 AM [facility] pH, Urine 6.5 5.0 - 8.0 pH LAB URINALYSIS - AUTOMATED METHOD 11/17/2024 11:35 AM [facility] Leukocytes, Urine Small(A) Negative LAB URINALYSIS - AUTOMATED METHOD 11/17/2024 11:35 AM [facility] Nitrite, Urine Negative Negative LAB URINALYSIS - AUTOMATED METHOD 11/17/2024 11:35 AM [facility] Protein, Urine Negative <=Trace mg/dL LAB URINALYSIS - AUTOMATED METHOD 11/17/2024 11:35 AM [facility] Glucose, Urine >=1000(A) Negative mg/dL LAB URINALYSIS - AUTOMATED METHOD 11/17/2024 11:35 AM [facility] Ketones, Urine Negative Negative mg/dL LAB URINALYSIS - AUTOMATED METHOD 11/17/2024 11:35 AM [facility] Urobilinogen , Urine 0.2 0.2 - 1.0 mg/dL LAB URINALYSIS - AUTOMATED METHOD 11/17/2024 11:35 AM [facility] Bilirubin, Urine Negative Negative LAB URINALYSIS - AUTOMATED METHOD 11/17/2024 11:35 AM EDT [facility] Blood, Urine Negative Negative LAB URINALYSIS - AUTOMATED METHOD 11/17/2024 11:35 AM T [facility] RBC, Urine 0.7 0 - 4 /HPF LAB URINALYSIS - AUTOMATED METHOD 11/17/2024 11:35 AM [facility] WBC, Urine 7.4(H) 0 - 4 /HPF LAB URINALYSIS - AUTOMATED METHOD 11/17/2024 11:35 AM EDT [facility] Squamous Epithelial, Urine 17 0 - 60 /LPF LAB URINALYSIS - AUTOMATED METHOD 11/17/2024 11:35 AM [facility] Bacteria, Urine Negative Negative /HPF LAB URINALYSIS - AUTOMATED METHOD 11/17/2024 11:35 AM [facility] Hyaline Casts, Urine 0.0 0 - 3 /LPF LAB URINALYSIS - AUTOMATED METHOD 11/17/2024 11:35 AM [facility] Urine Urine specimen from urethra / Unknown Non-blood Collection / Unknown 11/17/2024 6:30 AM EDT 11/17/2024 10:59 AM EDT us Riccardo Bang MD LAB URINE ORDERABLES Final R esult [facility] [address] [place] [address], * Microalbumin creatinine urine ratio (11/17/2024 6:30 AM EDT) Creatinine, Urine 24.0 mg/dL LAB CHEMISTRY METHOD 11/17/2024 1:04 PM EDT [facility] Microalb, Ur 5.5 0.0 - 29.0 mg/L LAB CHEMISTRY METHOD 11/17/2024 1:04 PM EDT [facility] Microalb/Creat Ratio 23 <30 mg/g creat LAB CHEMISTRY METHOD 11/17/2024 1:04 PM EDT [facility] Urine Urine specimen from urethra / Unknown Non-blood Collection / Unknown 11/17/2024 6:30 AM EDT 11/17/2024 10:59 AM EDT us Riccardo Bang MD LAB URINE ORDERABLES Final R esult [facility] [address] [place] [address], documented in this encounter Visit Diagnoses Diagnosis Dysuria documented in this encounter Care Teams Electrical Appliance Repairer Relationship Specialty Start Date End Date Riccardo Bang MD [address] [place] [address] [address] [place] PCP - General Internal Medicine 06/22/24 documented as of this encounter
== END 2024-11-20 17:01 | disposition home or self-care (01) ==
LOC: HO.HMCH 16:02
PROVIDERS: PCP Internal Medicine; Visit Provider Internal Medicine
DX: Z13.9 Encounter for screening, unspecified (principal)

== ENCOUNTER → 2024-11-20 16:02 | Outpatient (BNVA) | payer MEDICARE, MEDICAID, SELFPAY | PROVIDERS: PCP Internal Medicine; Visit Provider Internal Medicine | DX: E11.22 Type 2 diabetes mellitus with diabetic chronic kidney disease (principal); I12.9 Hypertensive chronic kidney disease with stage 1 through stage 4 chronic kidney disease, or unspecified chronic kidney disease; N18.9 Chronic kidney disease, unspecified; E78.00 Pure hypercholesterolemia, unspecified; D50.8 Other iron deficiency anemias; E53.8 Deficiency of other specified B group vitamins; M17.12 Unilateral primary osteoarthritis, left knee; M81.0 Age-related osteoporosis without current pathological fracture; R32 Unspecified urinary incontinence; I87.2 Venous insufficiency (chronic) (peripheral); R60.0 Localized edema; F41.9 Anxiety disorder, unspecified; E66.3 Overweight; Z68.28 Body mass index [BMI] 28.0-28.9, adult | CPT/HCPCS: 83036; 99212 ==